=== PATIENT | male | born 1935 | race Caucasian/White ===

== ENCOUNTER 2016-10-06 08:34 | Emergency (ER) | payer OTHER ==
[~2016-10-06] VITALS: Ht 177.8 cm; Wt 89.6 kg
[~2016-10-06 08:34] MED LIST: ASCO500T87 PO; ASPI325T45 PO; ATOR-26 PO; CHOL1TAB76 PO; DIPH-437 PO; GLC5 PO; MAGN400T5 PO; METO50TA7 PO; NITR0.4S UT; SITA50TA PO; VARD20TA PO
[2016-10-06 08:49] VITALS: TEMP 36.4; Ht 177.8 cm; Wt 89.6 kg
--- NOTE | 2016-10-06 08:53 | EMERGENCY ROOM VISIT NOTE ---
History Report prepared by Berny: Mirian Bates Under the Supervision of: Dr. Sadi Hughes D.O. First contact with patient: 08:36 Chief Complaint: IRREGULAR HEARTBEAT Stated Complaint: FLUTTER IN HEART SENT BY DOCTOR History of Present Illness The patient is a 81 year old male who presents to the Emergency Room with complaints of constant heart fluttering beginning 4 hours ago. The patient states that this morning he had some chest pain and shortness of breath that was worsened with exertion. He notes that he was told to come in to the ED by his doctor that was concerned that he was in A-fib. He denies any swelling of the legs. He reports that he has no history of heart attack but had a bypass 14 years ago. He notes that he has a history of A-fib and has been shocked out of the rhythm. He notes that he is on Metoprolol 2 times a day and has diabetes but is not on insulin. Source of History: patient Onset: 4 hours ago Position: chest Quality: other (fluttering) Timing: constant Modifying Factors (Worsening): exertion Associated Symptoms: + SOB, + chest pain Note: He denies any swelling of the legs. Review of Systems See above for pertinent positives & negatives. A total of 10 systems reviewed and were otherwise negative. Past Medical & Surgical Medical Problems: (1) Diabetes (2) SVT (supraventricular tachycardia) (3) SVT (supraventricular tachycardia) Surgical Problems: (1) Hx of CABG Family History No pertinent family history stated. Social History Smoking Status: Never Smoker Alcohol Use: occasionally Marital Status: Housing Status: lives with significant other Occupation Status: retired Current/Historical Medications Scheduled Ascorbic Acid (Vitamin C Tr/Galina Hips), 2 TABS PO DAILY Atorvastatin (Lipitor), 80 MG PO DAILY Cholecalciferol (D 1999), 1 TAB PO DAILY Dutasteride (Avodart), 0.5 MG PO DAILY Glipizide (Glipizide), 10 MG PO BID Lisinopril (Zestril), 5 MG PO DAILY Metoprolol Succ (Toprol Xl) (Toprol-Xl), 50 MG PO BID Nitroglycerin (Nitrostat), 0.4 MG UT PRN Pantoprazole (Pantoprazole Sodium), 40 MG PO DAILY Allergies Coded Allergies: No Known Allergies (Unverified , 10/06/16) Physical Exam Vital Signs Date Time Temp Pulse Resp B/P Pulse Ox O2 Delivery O2 Flow Rate FiO2 10/06/16 10:32 71 18 131/77 97 Nasal Cannula 2.0 10/06/16 09:43 75 16 130/63 97 Nasal Cannula 2.0 10/06/16 09:24 75 18 119/91 99 Nasal Cannula 2.0 10/06/16 09:15 74 10/06/16 09:12 119 16 96/64 99 Nasal Cannula 2.0 10/06/16 09:09 124 104/64 10/06/16 09:03 99 Nasal Cannula 2.0 10/06/16 08:51 98 Room Air 10/06/16 08:49 36.4 130 20 105/75 98 Room Air 10/06/16 08:45 129 Physical Exam GENERAL: Patient is well appearing and in no acute distress. HEENT: No acute trauma, normocephalic atraumatic, mucous membranes moist, no nasal congestion, no scleral icterus. NECK: No stridor, no adenopathy, no meningismus, trachea is midline. LUNGS: No dyspnea. Clear to auscultation and equal bilaterally. No wheeze, no rhonchi. HEART: Tachycardic rate and irregularly irregular rhythm. No murmurs, rubs, gallops appreciated. ABDOMEN: Soft, nontender, bowel sounds positive, no masses appreciated, no peritonitis. BACK: No midline tenderness, no CVA tenderness EXTREMITIES: Normal motion all extremities, no cyanosis, no edema. NEUROLOGIC: Alert and oriented, no acute motor or sensory deficits, no focal weakness, cranial nerves grossly intact. SKIN: No rash, no jaundice, no diaphoresis. Medical Decision & Procedures ER Provider Diagnostic Interpretation: X ray results and stated below per my interpretation and radiologist interpretation. SINGLE VIEW CHEST FINDINGS: An AP, portable, upright chest radiograph is compared to study dated 04/17/2014. The examination is degraded by portable technique and patient rotation. The patient is status post midline sternotomy. The heart is enlarged and there is atherosclerotic calcification of the thoracic aorta. The pulmonary vasculature is noncongested. There is minimal left basilar atelectasis. The lungs and pleural spaces are otherwise clear. No pneumothorax is seen. The skeletal structures are osteopenic. The bony thorax is grossly intact. IMPRESSION: Mild cardiac enlargement with no acute cardiopulmonary abnormality. Electronically signed by: Luis Dominguez M.D. 10/06/2016 9:26 AM Dictated Date/Time: 10/06/2016 9:25 AM Laboratory Results 10/06/16 08:45 Red Blood Count 4.35, Mean Corpuscular Volume 93.6, Mean Corpuscular Hemoglobin 33.1, Mean Corpuscular Hemoglobin Concent 35.4, Mean Platelet Volume 9.8, Neutrophils (%) (Auto) 68.0, Lymphocytes (%) (Auto) 18.1, Monocytes (%) (Auto) 11.2, Eosinophils (%) (Auto) 2.1, Basophils (%) (Auto) 0.5, Neutrophils # (Auto ) 5.31, Lymphocytes # (Auto) 1.41, Monocytes # (Auto) 0.87, Eosinophils # (Auto ) 0.16, Basophils # (Auto) 0.04 10/06/16 08:45 Test 10/06/16 08:45 10/06/16 09:50 White Blood Count 7.80 K/uL (4.8-10.8) Red Blood Count 4.35 M/uL (4.7-6.1) Hemoglobin 14.4 g/dL (14.0-18.0) Hematocrit 40.7 % (42-52) Mean Corpuscular Volume 93.6 fL (80-100) Mean Corpuscular Hemoglobin 33.1 pg (25-34) Mean Corpuscular Hemoglobin Concent 35.4 g/dl (32-36) Platelet Count 212 K/uL (130-400) Mean Platelet Volume 9.8 fL (7.4-10.4) Neutrophils (%) (Auto) 68.0 % Lymphocytes (%) (Auto) 18.1 % Monocytes (%) (Auto) 11.2 % Eosinophils (%) (Auto) 2.1 % Basophils (%) (Auto) 0.5 % Neutrophils # (Auto) 5.31 K/uL (1.4-6.5) Lymphocytes # (Auto) 1.41 K/uL (1.2-3.4) Monocytes # (Auto) 0.87 K/uL (0.11-0.59) Eosinophils # (Auto) 0.16 K/uL (0-0.5) Basophils # (Auto) 0.04 K/uL (0-0.2) RDW Standard Deviation 42.8 fL (36.4-46.3) RDW Coefficient of Variation 12.6 % (11.5-14.5) Immature Granulocyte % (Auto) 0.1 % Immature Granulocyte # (Auto) 0.01 K/uL (0.00-0.02) Prothrombin Time 11.5 SECONDS (9.0-12.0) Prothromb Time International Ratio 1.1 (0.9-1.1) Activated Partial Thromboplast Time 26.8 SECONDS (21.0-31.0) Partial Thromboplastin Ratio 1.0 Anion Gap 12.0 mmol/L (3-11) Est Creatinine Clear Calc Drug Dose 27.7 ml/min Estimated GFR () 28.5 Estimated GFR (Non- 24.6 BUN/Creatinine Ratio 13.1 (10-20) Calcium Level 9.1 mg/dl (8.5-10.1) Magnesium Level 1.7 mg/dl (1.8-2.4) Total Bilirubin 0.5 mg/dl (0.2-1) Direct Bilirubin 0.1 mg/dl (0-0.2) Aspartate Amino Transf (AST/SGOT) 23 U/L (15-37) Alanine Aminotransferase (ALT/SGPT) 25 U/L (12-78) Alkaline Phosphatase 108 U/L (45-117) Total Creatine Kinase 150 U/L (39-308) Creatine Kinase MB 2.5 ng/ml (0.5-3.6) Creatine Kinase MB Ratio 1.7 (0-3.0) Troponin I < 0.015 ng/ml (0-0.045) Total Protein 7.3 gm/dl (6.4-8.2) Albumin 3.4 gm/dl (3.4-5.0) Thyroid Stimulating Hormone (TSH) 3.060 uIu/ml (0.300-4.500) Urine Color YELLOW Urine Appearance CLEAR (CLEAR) Urine pH 7.0 (4.5-7.5) Urine Specific [place] 1.009 (1.000-1.030) Urine Protein 1+ (NEG) Urine Glucose (UA) NEG (NEG) Urine Ketones NEG (NEG) Urine Occult Blood NEG (NEG) Urine Nitrite NEG (NEG) Urine Bilirubin NEG (NEG) Urine Urobilinogen NEG (NEG) Urine Leukocyte Esterase TRACE (NEG) Urine WBC (Auto) 5-10 /hpf (0-5) Urine RBC (Auto) 0-4 /hpf (0-4) Urine Hyaline Casts (Auto) 1-5 /lpf (0-5) Urine Epithelial Cells (Auto) 10-20 /lpf (0-5) Urine Bacteria (Auto) NEG (NEG) Urine Renal Epithelial Cells /lpf (0-5) Laboratory results as reviewed by me. Medications Administered Medications (Trade) Dose Ordered Sig/García Route Start Time Stop Time Status Last Admin Dose Admin Sodium Chloride (Nss 1000ml) 1,000 ml @ 999 mls/hr Q1H1M STAT IV 10/06/16 08:54 10/06/16 09:54 DC 10/06/16 09:06 999 MLS/HR Metoprolol Tartrate (Lopressor Iv) 5 mg NOW STAT IV 10/06/16 08:55 10/06/16 08:56 DC 10/06/16 09:09 5 MG Magnesium Sulfate (Magnesium Sulfate) 1 gm NOW STAT IV 10/06/16 09:53 10/06/16 10:22 DC 10/06/16 10:04 1 GM ECG Indication: chest pain Rate (beats per minute): 128 Rhythm: atrial fibrillation Findings: other (normal axis, normal intervals, rapid ventricular response) Comparison ECG Date: 04/17/14 Change: A-fib is new and subendocardial pathway is no longer present. EKG #2: Sinus rhythm , 21, normal axis, normal intervals, 1st deg AV block, A- fib now resolved ED Course 0843: The patient was evaluated in room B2. A complete history and physical exam was performed. 0854: Sodium Chloride 1000 ml @ 999 mls/hr IV, Lopressor IV 5mg IV. 0953: Magnesium Sulfate 1gm IV. 0959: Magnesium Sulfate 1gm IV. 1003: I paged Dr. Gupta. 1010: I spoke to Dr. Gupta. He is comfortable without anticoagulation. The patient is stable for discharge and will follow up with Dr. Gupta in 2 weeks. 1016: Reevaluated the patient. Discussed results and discharge instructions: He verbalized understanding and agreement. The patient is ready for discharge. Medical Decision Differential diagnosis: Etiologies such as cardiac ischemia, aortic dissection, pulmonary embolism, pneumonia, pneumothorax, musculoskeletal, infections, pericarditis, myocarditis , esophageal rupture, gastrointestinal, as well as others were entertained. Patient is an 81-year-old male with significant past medical history for coronary artery disease, paroxysmal A. fib, not on anticoagulation by choice, who presented after converting into atrial fibrillation with RVR at approximately 5 AM this morning he states he had mild chest pain shortness of breath whenever he enters atrial fibrillation. He is given 5 mg metoprolol IV and spontaneously converted in normal sinus rhythm. I discussed the case with Dr. Gupta him tech Areli. He is familiar with him not being on anticoagulation he is comfortable with that. He'll follow up with Dr. Gupta in 1-2 weeks. He is mildly hypomagnesemic he was given 1 g IV magnesium sulfate in the emergency department. We discharged home in improved stable condition. Patient is an 81-year-old male without significant past medical history for hypertension coronary artery disease status post CABG 14 years ago as well as paroxysmal A. fib. I discussed the case with Dr. Gupta his primary him tech who reports that he is well aware of the patient and he is not on anticoagulation by choice and the patient routinely knows when he converts into atrial fibrillation. He has an events of atrial fibrillation with RVR approximately once year. Today he reports that he was brushing more than normal he went into atrial fibrillation approximately 5 AM. He had palpitations and chest pain while in atrial fibrillation, he was treated with 5 mg of IV metoprolol which spontaneously converted him into a normal sinus rhythm. After conversion to normal sinus rhythm the patient felt completely back to normal chest pain-free. I discussed the case with Dr. Gupta who will see him in 1-2 weeks. His troponin is negative 1, repeat EKG was obtained. It is found to be mildly hypomagnesemic he was given 1 g magnesium sulfate while in the ED. Consults Time Called: 1003 Consulting Physician: Dr. Gupta Returned Call: [phone] Gupta. He is comfortable without anticoagulation. The patient is stable for discharge and will follow up with Dr. Gupta in 2 weeks. Impression Primary Impression: Atrial fibrillation with rapid ventricular response Additional Impressions: Chronic renal insufficiency Hx of coronary artery disease Hypomagnesemia Scribe Attestation The scribe's documentation has been prepared under my direction and personally reviewed by me in its entirety. I confirm that the note above accurately reflects all work, treatment, procedures, and medical decision making performed by me. Departure Information Dispostion Home / Self-Care Referrals Eulogio Lugo D.O. (PCP) Forms HOME CARE DOCUMENTATION FORM, IMPORTANT VISIT INFORMATION Patient Instructions AFL/Afib, [facility] Additional Instructions Follow-up with Dr. Gupta, call his office tomorrow for follow-up appointment in 1-2 weeks. Return for chest pain, palpitations, shortness of breath, passing out, or any other concerns. Problem Qualifiers
[2016-10-06] MEDS ORDERED: SODIUM CHLORIDE 0.9% 1000ML 1,000 ML IV STA (08:54)
[2016-10-06 09:03] VITALS: O2SAT 99
[2016-10-06] MEDS: METOPROLOL TARTRATE 1 MG/ML VIAL IV STA ×2 (09:07→09:09)
[2016-10-06 09:08] LABS: BASO % 0.5 %; BASO ABS # 0.04 K/uL (0-0.2); COMPLETE YES; EOS % 2.1 %; HEMATOCRIT 40.7 % (42-52); IG% 0.1 %; LYMPH % 18.1 %; LYMPH ABS # 1.41 K/uL (1.2-3.4); MEAN CELL VOLUME 93.6 fL (80-100); MEAN CORPUSCULAR HEMOGLOBIN 33.1 pg (25-34); MEAN CORPUSCULAR HGB CONC 35.4 g/dl (32-36); MEAN PLATELET VOLUME 9.8 fL (7.4-10.4); MONO % 11.2 %; PLATELET COUNT 212 K/uL (130-400); RED BLOOD COUNT 4.35 M/uL (4.7-6.1)
[2016-10-06 09:18] LABS: INR 1.1 (0.9-1.1); PROTHROMBIN TIME (PATIENT) 11.5 SECONDS (9.0-12.0)
[2016-10-06 09:24] LABS: ALT/SGPT 25 U/L (12-78); BLOOD UREA NITROGEN 31 mg/dl (7-18); BUN/CREATININE RATIO 13.1 (10-20); CALCIUM 9.1 mg/dl (8.5-10.1); CARBON DIOXIDE 23 mmol/L (21-32); CHLORIDE 103 mmol/L (98-107); GLUCOSE 178 mg/dl (70-99); MAGNESIUM 1.7 mg/dl (1.8-2.4); POTASSIUM 4.7 mmol/L (3.5-5.1); SODIUM 138 mmol/L (136-145)
--- NOTE | 2016-10-06 09:27 | DIAGNOSTIC IMAGING REPORT ---
SINGLE VIEW CHEST CLINICAL HISTORY: Generalized weakness. FINDINGS: An AP, portable, upright chest radiograph is compared to study dated 04/17/2014. The examination is degraded by portable technique and patient rotation. The patient is status post midline sternotomy. The heart is enlarged and there is atherosclerotic calcification of the thoracic aorta. The pulmonary vasculature is noncongested. There is minimal left basilar atelectasis. The lungs and pleural spaces are otherwise clear. No pneumothorax is seen. The skeletal structures are osteopenic. The bony thorax is grossly intact. IMPRESSION: Mild cardiac enlargement with no acute cardiopulmonary abnormality. Electronically signed by: Luis Dominguez M.D. 10/06/2016 9:26 AM Dictated Date/Time: 10/06/2016 9:25 AM
[2016-10-06 09:34] LABS: ALKALINE PHOSPHATASE 108 U/L (45-117); AST/SGOT 23 U/L (15-37); CKMB/CK RATIO 1.7 (0-3.0)
[2016-10-06] MEDS ORDERED: GLIP10TA10 PO (09:41)
[2016-10-06] MEDS ORDERED: LISI-729 PO (09:41)
[2016-10-06] MEDS ORDERED: DUTA0.5C PO (09:41)
[2016-10-06] MEDS ORDERED: PRT/40 PO (09:41)
[2016-10-06] MEDS ORDERED: MAGNESIUM SULFATE 1GM / D5W 1 GM BAG IV STA (09:53)
[2016-10-06] MEDS ORDERED: MAGNESIUM SULFATE 1GM / D5W 1 GM BAG ONE (09:59)
[2016-10-06 10:12] LABS: MANUAL MICROSCOPIC REQUIRED? NO; REVIEW REQ? YES; URINE APPEARANCE CLEAR (CLEAR); URINE BILIRUBIN NEG (NEG); URINE COLOR YELLOW; URINE NITRITE NEG (NEG); URINE SPECIFIC GRAVITY 1.009 (1.000-1.030); UROBILINOGEN NEG (NEG)
[2016-10-06] MEDS ORDERED: ASPI81TA28 PO (11:02)
[2016-10-06 11:29] VITALS: BP 135/76; PULSE 75; O2SAT 95
== END 2016-10-06 11:30 | disposition home or self-care (01) ==
LOC: C.EDB 08:35
DX: I48.91 Unspecified atrial fibrillation (principal); N18.9 Chronic kidney disease, unspecified; I25.10 Atherosclerotic heart disease of native coronary artery without angina pectoris; E83.42 Hypomagnesemia; E11.9 Type 2 diabetes mellitus without complications; Z79.899 Other long term (current) drug therapy

== ENCOUNTER 2019-06-16 06:43 | Inpatient (IN) ==
[2019-06-16 07:37] LABS: Basophils # (auto) 0.03 K/uL (0-0.2); Basophils % (auto) 0.6 %; Eosinophils # (auto) 0.19 K/uL (0-0.5); Eosinophils % (auto) 3.6 %; Hematocrit (blood only) 37.3 % (42-52); Hemoglobin 12.7 g/dL (14.0-18.0); Lymphocytes # (auto) 0.97 K/uL (1.2-3.4); Lymphocytes % (auto) 18.2 %; Mean Corpuscular Volume 96.9 fL (80-100); Mean Platelet Volume 9.6 fL (7.4-10.4); Monocytes # (auto) 0.62 K/uL (0.11-0.59); Monocytes % (auto) 11.7 %; Neutrophils # (auto) 3.51 K/uL (1.4-6.5); Neutrophils % (auto) 65.9 %; Platelet Count 145 K/uL (130-400); RDW Coefficient of Variation 12.7 % (11.5-14.5); RDW Standard Deviation 44.4 fL (36.4-46.3); Red Blood Count 3.85 M/uL (4.7-6.1); White Blood Count 5.32 K/uL (4.8-10.8)
[2019-06-16 07:47] LABS: INR 1.1 (0.9-1.1); Partial Thromboplastin Ratio 0.9; Partial Thromboplastin Time 25.6 Seconds (21.0-31.0); Prothrombin Time 11.2 Seconds (9.0-12.0)
[2019-06-16 07:54] LABS: Alanine Aminotransferase 19 U/L (12-78); Albumin Level 3.3 gm/dl (3.4-5.0); Aspartate Aminotransferase 20 U/L (15-37); BUN Creatinine Ratio 18.8 (10-20); Blood Urea Nitrogen 43 mg/dl (7-18); Carbon Dioxide 22 mmol/L (21-32); Chloride 110 mmol/L (98-107); Creatinine Clr Calc Pharmacy 27.7 ml/min; Est GFR (Non-African American) 25.9; Glucose 96 mg/dl (70-99); Magnesium 1.8 mg/dl (1.8-2.4); Potassium 4.5 mmol/L (3.5-5.1); Sodium 141 mmol/L (136-145)
--- NOTE | 2019-06-16 07:55 | CT Scan Report ---
CT head/brain wo con CLINICAL HISTORY: 84 years-old Male presenting with Stroke evaluation . TECHNIQUE: Multidetector CT imaging of the head was performed without the use of intravenous contrast . IV contrast: None. One or more dose lowering techniques were used consistent with the principles of ALARA (as low as reasonably achievable), including automatic exposure control, mA or kV adjustment t o individual patient size, and/or use of iterative reconstruction. COMPARISON: None. CT DOSE (mGy.cm): The estimated cumulative dose is 537.48 mGy.cm. FINDINGS: Table Cut Off Saw Operator topogram: Unremarkable. Ventricles and sulci normal in size. No hemorrhage. Periventricular and subcortical white matter hypo attenuation, nonspecific but likely indicative of chronic small vessel ischemic change. No acute terr itorial infarct. No mass effect or midline shift. No extra-axial fluid collection. Paranasal sinuses and mastoid air cells clear. Calvarium intact. Intracranial atherosclerosis noted. IMPRESSION: 1. Chronic small vessel ischemic change. No acute intracranial abnormality. Electronically signed by: Ernst Langley M.D. 06/16/2019 7:53 AM
[2019-06-16 07:59] LABS: Alkaline Phosphatase 70 U/L (45-117); Bilirubin,Total 0.5 mg/dl (0.2-1); Globulin 3.3 gm/dl (2.5-4.0); Total Protein 6.6 gm/dl (6.4-8.2); Troponin I < 0.015 ng/ml (0-0.045)
--- NOTE | 2019-06-16 08:00 | XRay Report ---
XR pelvis 1-2V routine CLINICAL HISTORY: L leg weakness COMPARISON: None FINDINGS: Sacroiliac joints and symphysis pubis are intact. There is no fracture or suspicious lesio n within the pelvis or hips. There is moderate bilateral hip osteophytosis with joint space narrowing and osteophytosis. IMPRESSION: 1. No acute fracture within the pelvis or hips. 2. Moderate bilateral hip osteoarthritis. Electronically signed by: Marc Leroy M.D. 06/16/2019 7:59 AM
--- NOTE | 2019-06-16 08:12 | XRay Report ---
XR chest 1V portable HISTORY: 84 years-old Male stroke acute strokelike symptoms COMPARISON: Chest radiograph 05/20/2018 TECHNIQUE: Portable AP view of the chest FINDINGS: Cardiac silhouette is mildly enlarged, unchanged. Prior median sternotomy with findings suggestive of CABG. Mild blunting of the costophrenic angles is unchanged. No pneumothorax, large pleural effusion or overt pulmonary edema. Mild linear subsegmental bibasilar opacities. Degenerative changes of the shoulders and spine. IMPRESSION: 1. Cardiomegaly without overt pulmonary edema. 2. Minimal bibasilar opacities suggest atelectasis. The above report was generated using voice recognition software. It may contain grammatical, syntax o r spelling errors. Electronically signed by: Markus Serrano M.D. 06/16/2019 8:11 AM
[2019-06-16] MEDS ORDERED: ASPIRIN CHEW 324 MG PO STA (09:24)
--- NOTE | 2019-06-16 10:19 | History & Physical Report ---
Date of Service June 16, 2019 Assessment & Plan (1) Stroke-like symptoms: Mr. Mata is an 84-year-old male who has significant past medical history of CAD with history of CABG x3 in 2003, HTN, HLD, T2DM, CKD stage IV, PAF not on oral anticoagulation, history of SVT, BPH who presents to [facility] ED secondary to left lower extremity weakness and numbness starting at 4 AM. Sx still present but improved, he was not a TPA candidate per ED provider, stroke alert not initiated He has remained significantly hypertensive during ED evaluation which raises even more concern for TIA/CVA CT head negative of hemorrhage, but + chronic small vessel disease CBC/CMP relatively unremarkable except for H&H 12.7 and 37.3, known CKD stage III with creatinine of 2.26 Admit to PCU Consult neurology Obtain MRI without contrast Echocardiogram ordered Carotid Doppler ordered, patient unable to have contrast given renal disease Fasting lipid panel and A1c in a.m. PT/OT/ST Monitor on telemetry for PAF, consider Zio patch as outpatient Allow for permissive hypertension 24-hour (2) CAD (coronary artery disease): hx of CABG in 2003 no chest pain or SOB on ASA, statin, metoprolol and lisinopril as outpt (3) PAF (paroxysmal atrial fibrillation): On metoprolol for rate control Currently bradycardic with heart rate of 52 Monitor, could consider decreasing metoprolol to 25 mg twice daily if continues He is not on oral anticoagulation - pt states never has been on in the past pt notes symptomatic with afib and palpitations in past [id number] score 7 would recommend ZIO patch as outpt (4) HTN (hypertension): Blood pressure elevated on admission 181/80, Per [facility] records controlled as outpatient SBP 130-140s He did take lisinopril 5 mg and metoprolol 50 mg prior to arrival hold further antihypertensive agents for now and allow for permissive hypertension during stroke work-up continue metoprolol if heart rate allows for rate control given PAF (5) HLD (hyperlipidemia): Continue high intensity statin therapy (6) CKD (chronic kidney disease) stage 4, GFR 15-29 ml/min: Baseline creatinine 2.2 BUN/creatinine stable at 43 and 2.26 Monitor renal function and avoid nephrotoxic agents (7) T2DM (type 2 diabetes mellitus): Well-controlled as outpatient, last A1c 01/2019 6.5 Hold outpatient glipizide NovoLog sliding scale per protocol Repeat A1c in a.m. (8) BPH (benign prostatic hyperplasia): On dutasteride as outpatient (9) DVT prophylaxis: SCD/TEDS for now monitor daily need for chemical prophylaxis with heparin if to stay greater than 24 hours Disposition: Admit to PCU Follow-up: PCP Dr. Lugo upon discharge Patient was seen and examined in collaboration with Dr. Allan, please see addendum History of Present Illness Chief Complaint: Left lower extremity weakness and numbness starting at approximately 4 AM. Primary Care Provider: Eulogio Lugo DO Mr. Mata is an 84-year-old male who has significant past medical history of CAD with history of CABG x3 in 2002, HTN, HLD, T2DM, CKD stage IV, PAF not on oral anticoagulation, history of SVT, BPH who presents to [facility] ED secondary to left lower extremity weakness and numbness starting at 4 AM. His Radha is at bedside. At approximately 4 AM patient woke up to use the bathroom. When he tried to get off the toilet he noticed he had left leg numbness and weakness, and ended up sliding off the toilet onto the floor. There was no known injury and he did not hit his head or pass out. He called for his for assistance, but she was unable to help. He scooted himself from the bathroom to the bed and was able to pull himself up and lie back down for approximately another hour. When he woke up again around 5 AM or 5:30 AM he got out of bed again and noticed he had continued left lower extremity numbness from the knee down, but it was improved from first thing this morning. Because symptoms were still present he opted to seek medical attention at ED. He denies any recent illness, fever, chills, sweats, lightheadedness, syncope, change in vision, change in hearing, diplopia, chest pain, palpitations, cough, hemoptysis, nausea, vomiting, diarrhea, change in his bowel or urinary habits. He otherwise has a good appetite at baseline. He did take his morning medications including ASA 81 mg, lisinopril 5 mg, metoprolol 50 mg. He denies any difficulty swallowing. Denies any facial droop or upper extremity weakness. He has a baseline speech impediment and his feels it was at baseline throughout the entire event. He also has known torn left Achilles which causes him to walk with a limp and use a brace. He currently does not feel he has any change in his gait from baseline. Allergies Allergy/AdvReac Type Severity Reaction Status Date / Time No Known Allergies Allergy Unverified 06/16/19 07:42 Home Medications Home Medications Medication Instructions Recorded Confirmed Type Vitamin C-Galina Hips Er 1000mg 2,000 mg PO QAM 06/16/19 06/16/19 History aspirin 81 mg PO QAM 06/16/19 06/16/19 History atorvastatin 80 mg PO QAM 06/16/19 06/16/19 History cholecalciferol (vitamin D3) 3,000 unit PO QAM 06/16/19 06/16/19 History [Vitamin D3] dutasteride 0.5 mg PO HS 06/16/19 06/16/19 History glipizide 10 mg PO BID 06/16/19 06/16/19 History lisinopril 5 mg PO QAM 06/16/19 06/16/19 History magnesium oxide 400 mg PO QAM 06/16/19 06/16/19 History metoprolol succinate 50 mg PO BID 06/16/19 06/16/19 History nitroglycerin 0.4 mg SUBLINGUAL UD 06/16/19 06/16/19 History pantoprazole 40 mg PO HS 06/16/19 06/16/19 History Past Med/Surg History Medical History BPH (benign prostatic hyperplasia) CAD (coronary artery disease) CKD (chronic kidney disease) stage 4, GFR 15-29 ml/min History of supraventricular tachycardia HLD (hyperlipidemia) HTN (hypertension) Hyperparathyroidism PAF (paroxysmal atrial fibrillation) T2DM (type 2 diabetes mellitus) Surgical History (Updated 06/16/19 @ 10:10 by Marcia Watson PA-C) History of cataract extraction History of prostate surgery Hx of CABG (Resolved) hx of cabg x 3 2002 Family History Father , 72 Cancer Coronary heart disease Social History (Updated 06/16/19 @ 10:11 by Marcia Watson PA-C) Preferred Language: Turkmen Communication Ability: Effective Control Technician Required: No Beliefs That Will Affect Care: None marital status: Current Living Situation: Spouse current occupational status: employed Feels Safe at Home: Yes Safety Concerns: Feels Safe At This Time Smoking Status: Never smoker Smoking End Date: 45+ years ago. ; Hx Alcohol Use: Yes Alcohol type: beer Alcohol type Comment: wednesday will have 1-2 beverages Alcohol Intake Frequency: Weekly Hx Substance Use: No Review of Systems Review of Systems: All systems reviewed & are unremarkable except as noted in HPI & below Physical Exam Physical Exam: Constitutional: WD/WN, vitals as above, NAD, sitting up in bed, pleasant, conversing easily, speech impediment and stutter Head: Normocephalic, Atraumatic Eyes: PERRL, conjunctivae normal, anicteric sclerae ENMT: external ear and nose normal, oropharynx normal Neck: trachea midline, no thyromegaly normal visual inspection Respiratory: normal respiratory effort, lungs clear to auscultation, no wheeze, rales, rhonchi. Normal insp/exp effort, no accessory muscle use Cardiovascular: Bradycardic rate but regular rhythm, no murmur, no edema Vessels: no JVD or carotid bruit Chest: normal inspection of chest Abdomen: normal bowel sounds, soft, nontender, no hepatosplenomegaly Musculoskeletal: no cyanosis or clubbing, extremities motor strength 5/5, except left lower extremity distally 4/5, mild sensory deficit left lower extremity distally Skin: no rashes, warm and dry normal turgor Neurologic: PERRL, EOMI, accommodation nl, no face palsy, speech impediment and stutter. CN's II-XI intact bilaterally and moves all extremities Psychiatric: A+Ox3, euthymic affect Lymphatic: no cervical or axillary lymphadenopathy : deferred Results & Data Vital Signs (Past 12 Hours) Vital Signs Temp Pulse Resp BP Pulse Ox 06/16/19 09:01 52 L 17 06/16/19 09:00 52 L 16 181/80 H 06/16/19 08:55 63 21 171/83 H 06/16/19 08:30 62 17 06/16/19 08:01 53 L 20 96 06/16/19 08:00 53 L 19 166/75 H 97 06/16/19 07:49 57 L 24 162/78 H 99 06/16/19 07:30 53 L 16 06/16/19 07:24 53 L 17 06/16/19 07:00 98 06/16/19 06:45 36.8 C 59 L 20 183/91 H 98 Laboratory Results Short CBC 06/16/19 06/16/19 Range/Units 07:26 07:26 WBC 5.32 (4.8-10.8) K/uL Hgb 12.7 L (14.0-18.0) g/dL Hct 37.3 L (42-52) % Plt Count 145 (130-400) K/uL Creatinine 2.26 H (0.6-1.4) mg/dl BMP 06/16/19 07:26 Sodium 141 Potassium 4.5 Chloride 110 H Carbon Dioxide 22 BUN 43 H Creatinine 2.26 H Glucose 96 Calcium 9.0 Cardiac Enzymes 06/16/19 Range/Units 07:26 Troponin I < 0.015 (0-0.045) ng/ml Liver Function 06/16/19 Range/Units 07:26 Total Bilirubin 0.5 (0.2-1) mg/dl AST 20 (15-37) U/L ALT 19 (12-78) U/L Alkaline Phosphatase 70 (45-117) U/L Albumin 3.3 L (3.4-5.0) gm/dl Diagnostic Findings CXR: IMPRESSION: 1. Cardiomegaly without overt pulmonary edema. 2. Minimal bibasilar opacities suggest atelectasis. Head CT: IMPRESSION: 1. Chronic small vessel ischemic change. No acute intracranial abnormality. Pelvis xray: IMPRESSION: 1. No acute fracture within the pelvis or hips. 2. Moderate bilateral hip osteoarthritis. ECG Rate (beats per minute): 51 Rhythm: sinus bradycardia Findings: + 1st degree AV block Code Status & VTE Plan Code Status Full Code VTE Prophylaxis Plan VTE Prophylaxis will be ordered: Yes Supervising Physician Co-Signing Physician Notes I saw this patient with the physician hospital aides and assistants teacher, I participated in the history, physical, review of systems, and physical exam. I reviewed the medications with the patient and the physician hospital aides and assistants teacher and helped reconcile the medications. I helped take a detailed family and social history as well. I formulated the assessment and plan personally with the physician hospital aides and assistants teacher and went over it with the patient. ROS-No Headache, No Visual Changes, No Nausea, No Vomiting, No Fever, No Chills, No Neck Pain or Stiffness, No Chest Pain, No Palpitations, No SOB, No FERRERA, No Cough, No Sputum, No Wheezing, No Abdominal Pain, No Diarrhea, No Hematemesis, No Hemoptysis, No Unexpected Weight Loss, No Flank pain, No Melena, No Hematochezia, No Frequency, No Urgency, No Burning, No Hematuria, No Rashes, No Diaphoresis. Appetite is Normal, c/o LE weakness, Sliding off Toilet Physical Exam Gen-AAO x 3, NAD, Afebrile, Mild speech Impediment Head-NCAT, EOMI, PERRLA, Anicteric Sclera, No Posterior Pharyngeal Erythema Neck-Supple, No JVD, No Thyromegaly, No Masses, No LAD, No Bruits Lungs-Clear to Auscultation Bilaterally, No Rales, No Rhonchi, No Wheezing, No Crepitus Chest-No S4, +S1, +S2, No S3, No Murmurs, No Rubs, No Gallops, No Ectopy Abdomen-Soft, Bowel Sounds Present, Non Tender, Non Distended, No Hepatomegaly, No Splenomegaly, No Palpable Masses, No Rebound, No Rigidity, No Guarding Musculoskeletal-Full Range of Motion Bilaterally, No CVAT Extremities-No Cyanosis, No Clubbing, No Edema Nuero-Cranial Nerves II-XII grossly intact, Motor WNL, DTRs WNL, Strength WNL, Non Focal Psych-Normal Mood
--- NOTE | 2019-06-16 12:22 | Magnetic Resonance Report ---
MR brain wo con HISTORY: 84 years-old Male Neuro sx, L leg weakness r/o CVA acute left leg numbness with weakness COMPARISON: Head CT of same day TECHNIQUE: Multiplanar multisequence MRI of the brain was obtained without the use of IV contrast. FINDINGS: Facilities Specialist localizer images demonstrate no gross extracranial abnormality. There is no restricted diffusio n to suggest acute or subacute infarction. Artifact from dental amalgam hardware and dental implants limits the study. Midline structures including the corpus callosum, brainstem, optic chiasm, pituitar y and pineal glands appear unremarkable as seen on the sagittal T1 series. No cerebellar tonsillar he rniation. Degenerative changes are noted about the imaged cervical spine. There is no acute intracranial hemorrhage, midline shift, abnormal extra-axial collection, hydrocepha darrion or intracranial mass. Mild age-related involutional changes. Patchy T2/FLAIR hyperintensities are noted about the white matter with the largest foci noted within the periventricular distributions, r ight greater than left. A single focus is also within the superior right cerebellum measuring 8 mm. T he major flow voids appear patent. Mastoid air cells are clear. Mild mucosal thickening of the fronta l and ethmoid sinuses. Prior bilateral cataract appear. Skull and soft tissues are unremarkable. IMPRESSION: 1. No acute intracranial abnormality, specifically no acute or subacute infarction. 2. Age-related involutional changes with indeterminate patchy T2/FLAIR hyperintensities within the wh ite matter, predominantly within a periventricular distribution with subcentimeter focus of the super ior right cerebellum. In a patient of this age group, these findings likely represent chronic microva scular ischemic disease with underlying demyelinating process not excluded. Correlate with clinical h istory. The above report was generated using voice recognition software. It may contain grammatical, syntax o r spelling errors. Electronically signed by: Markus Serrano M.D. 06/16/2019 12:21 PM
--- NOTE | 2019-06-16 13:03 | Ultrasound Report ---
US carotid doppler BI CLINICAL HISTORY: 84 years-old Male with CVA work up. Acute stroke like symptoms COMPARISON: Brain MRI of same day TECHNIQUE: Multiple real time sonographic images of the carotid bifurcations were obtained assessing james scale, color Doppler and spectral wave form appearance FINDINGS: RIGHT CAROTID: The peak systolic velocity within the proximal right ICA [id number] cm/sec. The end diastolic velocity measured 35 cm/sec. The ICA to CCA ratio measured 2.4 which correlates with a st enosis of 0-50%. Extensive calcified plaque of the right carotid bulb and proximal right ICA. LEFT CAROTID: The peak systolic velocity within the proximal left ICA [id number] cm/sec. The end d iastolic velocity measured 17 cm/sec. The ICA to CCA ratio measured 0.96 which correlates with a sten osis of 0-50%. Extensive mostly calcified plaque of the left carotid bulb and proximal left ICA. There is normal antegrade vertebral flow bilaterally. Blood pressure on the right measures 164/75 and on the left measures 146/73. IMPRESSION: 1. Extensive calcified plaque of the bilateral carotid bulbs results in 50-69% stenosis on the right and less than 50% stenosis on the left. 2. Antegrade flow of the bilateral vertebral arteries. The above report was generated using voice recognition software. It may contain grammatical, syntax o r spelling errors. Electronically signed by: Markus Serrano M.D. 06/16/2019 1:01 PM
[2019-06-16] MEDS ORDERED: DEXTROSE 50% 50 ML SYRINGE IV PRN (13:20)
[2019-06-16] MEDS ORDERED: PHARMACIST DISCHARGE MED REC CONSULT PRN (13:20)
[2019-06-16] MEDS ORDERED: GLUCOSE 10 TABS/TUBE PO PRN (13:20)
[2019-06-16] MEDS ORDERED: POLYETHYLENE (MIRALAX) 17 GM PACK PO PRN (13:20)
[2019-06-16] MEDS ORDERED: GLUCAGON FOR INJ 1 MG VIAL SQ PRN (13:20)
[2019-06-16] MEDS ORDERED: CARBOHYDRATES FOR HYPOGLYCEMIA PO PRN (13:20)
[2019-06-16] MEDS ORDERED: GLUCOSE 40% GEL 15 GM TUBE PO PRN (13:20)
[2019-06-16] MEDS ORDERED: ONDANSETRON INJ 2 MG/ML 2 ML VIAL IV PRN (13:20)
[2019-06-16] MEDS ORDERED: ACETAMINOPHEN 325 MG TAB PO PRN (13:20)
--- NOTE | 2019-06-16 13:22 | Neurology Consultation ---
Date of Consultation June 16, 2019 Assessment & Plan (1) Stroke-like symptoms: 1. TTE- small shunt 60-65% EF 2. MRI - no acute findings 3. carotid doppler- extensive calcified plaques no significant stenosis 4. already on aspirin 81 mg would add plavix 75 mg daily for 21 days then stop a spirin and continue plavix for life 5. cardiology -for anticoag if needed will defer to them 6. PT/OT speech for discharge needs 7. medical management per primary team 8. optimize HTN, HLD, DM, LDL <70 will seen in neurology clinic in 4-6 weeks after discharge, Supervising Physician Co-Signing Physician Notes I have seen and discussed above patient with Dr Matt Villareal, neuro History of Present Illness Requesting Physician: Matthew Garcia DO Attending Physician: Matthew Allan DO History of Present Illness Anand is an 84 year old male with PMH CAD, CABG x 3 in 2002, Htn, HLD, DM2, CKD IV, pAfib not on anitcoag, SVT, BPH, who was brought to [facility] ED due to a LLE weakness, and numbness, which started at 4a. He woke to use the bathroom and tri ed to get off the toilet and notice the leg to be numb and weak and then slid to the floor. There was no black or passing out. He got back to his bed and laid there for about and hour. then he tried getting up again but had left LE numbness from the knee down but was improved from earlier but since it was still there he came to the ED. At baseline he has a speech impediment and a known lfet Achilles tendon tear which he uses a brace and walks with a limp. Currently he is sitting up in bed and still having the numbness in his left leg. He states it is still difficult to walk but if now feels more like a muscle strain. denies CP, SOB, abdominal pain, swallowing issues, N, V, vision changes, bowel or bladder issues. Allergies Allergy/AdvReac Type Severity Reaction Status Date / Time No Known Allergies Allergy Unverified 06/16/19 07:42 Home Medications Home Medications Medication Instructions Recorded Confirmed Type Vitamin C-Galina Hips Er 1000mg 2,000 mg PO QAM 06/16/19 06/16/19 History aspirin 81 mg PO QAM 06/16/19 06/16/19 History atorvastatin 80 mg PO QAM 06/16/19 06/16/19 History cholecalciferol (vitamin D3) 3,000 unit PO QAM 06/16/19 06/16/19 History [Vitamin D3] dutasteride 0.5 mg PO HS 06/16/19 06/16/19 History glipizide 10 mg PO BID 06/16/19 06/16/19 History lisinopril 5 mg PO QAM 06/16/19 06/16/19 History magnesium oxide 400 mg PO QAM 06/16/19 06/16/19 History metoprolol succinate 50 mg PO BID 06/16/19 06/16/19 History nitroglycerin 0.4 mg SUBLINGUAL UD 06/16/19 06/16/19 History pantoprazole 40 mg PO HS 06/16/19 06/16/19 History Patient History Medical History BPH (benign prostatic hyperplasia) CAD (coronary artery disease) CKD (chronic kidney disease) stage 4, GFR 15-29 ml/min History of supraventricular tachycardia HLD (hyperlipidemia) HTN (hypertension) Hyperparathyroidism PAF (paroxysmal atrial fibrillation) T2DM (type 2 diabetes mellitus) Surgical History History of cataract extraction History of prostate surgery Hx of CABG (Resolved) hx of cabg x 3 2002 Family History Father , 72 Cancer Coronary heart disease Social History Preferred Language: Nigerien Communication Ability: Effective Broke Handler Required: No Beliefs That Will Affect Care: None marital status: Current Living Situation: Spouse current occupational status: employed Feels Safe at Home: Yes Safety Concerns: Feels Safe At This Time Smoking Status: Never smoker Smoking End Date: 45+ years ago. ; Hx Alcohol Use: Yes Alcohol type: beer Alcohol type Comment: wednesday will have 1-2 beverages Alcohol Intake Frequency: Weekly Hx Substance Use: No Physical Exam Physical Exam: Physical Exam: Constitutional: appearance nourished, healthy and normal Ears, Nose, Mouth and Throat: mucous membranes moist, no injection and skin normal, eyes normal Cardiovascular: regular rhythm ,rate Respiratory: course breath sounds Musculoskeletal: no peripheral edema, left Achilles no tension with palpation Skin: no stigmata of neurocutaneous disease noted and normal and intact Eyes: extraocular muscles intact (EOMI) and pupils equal, round and reactive to light (PERRL) NEUROLOGIC EXAMINATION: Mental status: Alert and interactive Oriented to full date and location Oriented to person Speech stuttering speech chronic Cranial Nerves smile eye brow raise symmetric Reflexes: Deep tendon reflexes were symmetrical and graded 2/5. Sensory: loss of sensation to vibration and cool, light left leg from knee down Coordination: finger to nose slight dysmetric Gait/Stance: Posture sitting up in bed Motor: Negative for pronator drift of out stretched arms with eyes closed. Strength: hand assistant manager/embalmer biceps triceps bilaterally 5/5, hip flex plantar flex ext 5/5 bilaterally Results & Data Vital Signs (Past 12 Hours) Vital Signs Temp Pulse Resp BP Pulse Ox 06/16/19 09:01 52 L 17 06/16/19 09:00 52 L 16 181/80 H 06/16/19 08:55 63 21 171/83 H 06/16/19 08:30 62 17 06/16/19 08:01 53 L 20 96 06/16/19 08:00 53 L 19 166/75 H 97 06/16/19 07:49 57 L 24 162/78 H 99 06/16/19 07:30 53 L 16 06/16/19 07:24 53 L 17 06/16/19 07:00 98 06/16/19 06:45 36.8 C 59 L 20 183/91 H 98 Laboratory Results Abnormal lab results 06/16/19 06/16/19 06/16/19 Range/Units 07:26 07:26 13:45 RBC 3.85 L (4.7-6.1) M/uL Hgb 12.7 L (14.0-18.0) g/dL Hct 37.3 L (42-52) % Lymph # (Auto) 0.97 L (1.2-3.4) K/uL [place] # (Auto) 0.62 H (0.11-0.59) K/uL Chloride 110 H (98-107) mmol/L BUN 43 H (7-18) mg/dl Creatinine 2.26 H (0.6-1.4) mg/dl POC Glucose 100 H (70-99) Albumin 3.3 L (3.4-5.0) gm/dl Diagnostic Findings Carotid doppler- . Extensive calcified plaque of the bilateral carotid bulbs results in 50-69% stenosis on the right and less than 50% stenosis on the left. Antegrade flow of the bilateral vertebral arteries. MRI brain-No acute intracranial abnormality, specifically no acute or subacute infarction. Age-related involutional changes with indeterminate patchy T2/FLAIR hyperintensities within the white matter, predominantly within a periventricular distribution with subcentimeter focus of the superior right cerebellum. In a patient of this age group, these findings likely represent chronic microvascular ischemic disease with underlying demyelinating process not excluded. Correlate with clinical history. pelvis x ray-No acute fracture within the pelvis or hips. Moderate bilateral hip osteoarthritis. CXR-Chronic small vessel ischemic change. No acute intracranial abnormality. TTE 60-65% small shunt
--- NOTE | 2019-06-16 14:30 | Emergency Department Note ---
Entered by Luis E Salas acting as a scribe for Reynold Camarillo History of Present Illness General Chief complaint: Neuro Symptoms/Deficit Stated complaint: FALL-NUMBNESS IN LEFT LEG Time Seen by Provider: 06/16/19 07:03 Source: patient Mode of arrival: ambulatory Limitations: no limitations History of Present Illness Onset (ago): hour(s) 3 Location: lower extremity (left leg ) Pain Consistency: + intermittent Quality: + other (episode) Relieved By: + other (time) Associated symptoms: + denies other symptoms (loss of consciousness) and + other (numbness in left leg, weakness in left leg ) The patient is a 84 year old female who presents to the Emergency Room with complaints of an episode of a fall that happened this morning at 4 am, three hours prior to arrival. The patient notes that he went to bed at 7-8 pm, which is when he last felt normal. The patient notes that he went to go to the bathroom and sat on the toilet and went to get up and slid off the toilet seat. The patient states that his left leg was numb and weak, and that he was unable to get up on his own. The patient reports that he called for his and could not get off the floor on his own. He reports that he slid on his butt to his bed and pulled himself to his bed. The patient denies hitting his head or any syncope. He notes that the left leg numbness was intermittent and has gotten better since arrival. He reports that he was ambulatory. Home Medications Home Medications Medication Instructions Recorded Confirmed Type Vitamin C-Galina Hips Er 1000mg 2,000 mg PO QAM 06/16/19 06/16/19 History aspirin 81 mg PO QAM 06/16/19 06/16/19 History atorvastatin 80 mg PO QAM 06/16/19 06/16/19 History cholecalciferol (vitamin D3) 3,000 unit PO QAM 06/16/19 06/16/19 History [Vitamin D3] dutasteride 0.5 mg PO HS 06/16/19 06/16/19 History glipizide 10 mg PO BID 06/16/19 06/16/19 History lisinopril 5 mg PO QAM 06/16/19 06/16/19 History magnesium oxide 400 mg PO QAM 06/16/19 06/16/19 History metoprolol succinate 50 mg PO BID 06/16/19 06/16/19 History nitroglycerin 0.4 mg SUBLINGUAL UD 06/16/19 06/16/19 History pantoprazole 40 mg PO HS 06/16/19 06/16/19 History Allergies Allergy/AdvReac Type Severity Reaction Status Date / Time No Known Allergies Allergy Unverified 06/16/19 07:42 Past Med/Surg History Medical History BPH (benign prostatic hyperplasia) CAD (coronary artery disease) CKD (chronic kidney disease) stage 4, GFR 15-29 ml/min History of supraventricular tachycardia HLD (hyperlipidemia) HTN (hypertension) Hyperparathyroidism PAF (paroxysmal atrial fibrillation) T2DM (type 2 diabetes mellitus) Surgical History (Updated 06/16/19 @ 10:10 by Marcia Watson PA-C) History of cataract extraction History of prostate surgery Hx of CABG (Resolved) hx of cabg x 3 2002 Family History Father , 72 Cancer Coronary heart disease Social History (Updated 06/16/19 @ 10:11 by Marcia Watson PA-C) Preferred Language: Citizen Of [place] Communication Ability: Effective Systems Manager Required: No Beliefs That Will Affect Care: None marital status: Current Living Situation: Spouse current occupational status: employed Feels Safe at Home: Yes Safety Concerns: Feels Safe At This Time Smoking Status: Never smoker Smoking End Date: 45+ years ago. ; Hx Alcohol Use: Yes Alcohol type: beer Alcohol type Comment: wednesday will have 1-2 beverages Alcohol Intake Frequency: Weekly Hx Substance Use: No Review of Systems See HPI for pertinent positives & negatives. and A total of 10 systems reviewed and were otherwise negative Physical Exam Vital Signs Vital Signs - 24 hr 06/16/19 06:45 06/16/19 07:00 06/16/19 07:24 Temperature 36.8 C Temperature Source Oral Oral Pulse Rate 59 L 53 L Pulse Rate from SpO2 Sensor Pulse Rhythm Regular Pulse Strength Normal Respiratory Rate 20 17 Respiratory Effort / Characteristics Non-Labored Spontaneous Respiratory Depth Normal Respiratory Pattern Regular Blood Pressure 183/91 H Blood Pressure Mean 121 Blood Pressure Position Sitting Pulse Oximetry 98 98 Oxygen Delivery Method Room Air Room Air Sepsis Recent Fever Within 48 Hours No Sepsis Action Taken by Nursing No Action Required 06/16/19 07:30 06/16/19 07:49 06/16/19 08:00 Temperature Temperature Source Pulse Rate 53 L 57 L 53 L Pulse Rate from SpO2 Sensor 57 L 53 L Pulse Rhythm Pulse Strength Respiratory Rate 16 24 19 Respiratory Effort / Characteristics Respiratory Depth Respiratory Pattern Blood Pressure 162/78 H 166/75 H Blood Pressure Mean 103 119 Blood Pressure Position Pulse Oximetry 99 97 Oxygen Delivery Method Sepsis Recent Fever Within 48 Hours Sepsis Action Taken by Nursing 06/16/19 08:01 06/16/19 08:30 06/16/19 08:55 Temperature Temperature Source Pulse Rate 53 L 62 63 Pulse Rate from SpO2 Sensor 53 L Pulse Rhythm Pulse Strength Respiratory Rate 20 17 21 Respiratory Effort / Characteristics Respiratory Depth Respiratory Pattern Blood Pressure 171/83 H Blood Pressure Mean 114 Blood Pressure Position Pulse Oximetry 96 Oxygen Delivery Method Sepsis Recent Fever Within 48 Hours Sepsis Action Taken by Nursing 06/16/19 09:00 06/16/19 09:01 Temperature Temperature Source Pulse Rate 52 L 52 L Pulse Rate from SpO2 Sensor Pulse Rhythm Pulse Strength Respiratory Rate 16 17 Respiratory Effort / Characteristics Respiratory Depth Respiratory Pattern Blood Pressure 181/80 H Blood Pressure Mean 106 Blood Pressure Position Pulse Oximetry Oxygen Delivery Method Sepsis Recent Fever Within 48 Hours Sepsis Action Taken by Nursing Physical Exam GENERAL: He is oriented to person, place, and time. He appears well-developed and well-nourished. He does not appear distressed. HENT: Exam performed. - Head: Normocephalic and atraumatic. - Right Ear: External ear normal. No mastoid tenderness. - Left Ear: External ear normal. No mastoid tenderness. - Mouth/Throat: The oropharynx is clear and moist. No trismus in the jaw. No dental abscesses or uvula swelling. No oropharyngeal exudate or tonsillar abscesses. EYES: Conjunctivae and EOM are normal. Pupils are equal, round, and reactive to light. Right eye exhibits no discharge. Left eye exhibits no discharge. No scleral icterus. NECK: Normal range of motion. Neck supple. No JVD present. No spinous process tenderness present. No carotid bruit present. No rigidity. No tracheal deviation and normal range of motion present. No Brudzinski's sign and no Kernig's sign noted. CV: Normal rate, regular rhythm, normal heart sounds and intact distal pulses. There is no peripheral edema. Palpable radial pulses bue. PULM/CHEST: Effort normal and breath sounds normal. No respiratory distress. No stridor. He has no wheezes. He has no rales. - Chest Wall: He exhibits no tenderness. ABD: The abdomen is soft. Bowel sounds are normal. He has no distension. No mass is present. There is no tenderness. There is no rebound, no guarding, no Ziegler's sign and no tenderness at McBurney's point. Rovsig negative MUSC/SKEL: Normal range of motion. There is no peripheral edema, tenderness or deformity. LYMPH: No cervical adenopathy. ____ NEURO: Mild stuttering of speech, baseline per patient, mild sensory deficient of left lower extremity, mild cerebellar ataxia in left lower extremity, mildly shuffling gait which the patient and state are baseline due to Achilles. SKIN: Skin is warm and dry. He is not diaphoretic. ____ PSYCH: He has a normal mood and affect. His behavior is normal. Judgment and thought content normal. ____ Course Course 0704: The patient was evaluated in room B02. A complete history and physical exam was performed. Patient has a history of SVT, chest pain, diabetes, atrial flutter, CKD, patient will be evaluated for stroke vs TIA, patient is not a TPA candidate, woke up with last symptoms at 4 am, normal 12 hours ago, exact onset of symptoms are unknown, patient is a high risk for thromboembolic disease given his atrial flutter and is not on any anticoagulation 0900: Vitals stable, labs within normal limits, repeat assessment states has mild numb in left lower but has improved, potential TIA given history of irregular heartbeat and no anti coagulation, he will be given aspirin and admitted to [facility] hospitalist 0923: I discussed the patient's case with Dr. Allan, [facility] Hospitalist. The patient will be admitted for further treatement. Administered Medications Discontinued Medications Aspirin (Aspirin) 324 mg PO NOW STA Stop: 06/16/19 09:25 Last Admin: 06/16/19 10:15 Dose: 324 mg Documented by: [id number] Impression & Plan TIA (transient ischemic attack) Discharge Plan Visit Data Chief Complaint: Neuro Symptoms/Deficit Stated Complaint: FALL-NUMBNESS IN LEFT LEG ED Provider: Reynold Camarillo Discharge Problem: TIA (transient ischemic attack) Forms Stand Alone Forms: My [facility] Prescriptions Prescriptions: No Action atorvastatin 80 mg Tablet 80 mg PO QAM RF: 0 metoprolol succinate 50 mg Tablet Extended Release 24 Hr 50 mg PO BID RF: 0 glipizide 10 mg Tablet 10 mg PO BID RF: 0 aspirin 81 mg Tablet,Delayed Release (Dr/Ec) 81 mg PO QAM RF: 0 pantoprazole 40 mg Tablet,Delayed Release (Dr/Ec) 40 mg PO HS RF: 0 nitroglycerin 0.4 mg Tablet, Sublingual 0.4 mg sublingual UD RF: 0 lisinopril 5 mg Tablet 5 mg PO QAM RF: 0 dutasteride 0.5 mg Capsule 0.5 mg PO HS RF: 0 cholecalciferol (vitamin D3) [Vitamin D3] 1,000 unit Tablet,Chewable 3,000 unit PO QAM RF: 0 magnesium oxide 400 mg magnesium Tablet 400 mg PO QAM RF: 0 Vitamin C-Galina Hips Er 1000mg tablet 2,000 mg PO QAM RF: 0 Medical Decision Making Laboratory Data Attestation: I reviewed the patient's lab results. Result diagrams: 06/16/19 07:26 06/16/19 07:26 Lab Results 06/16/19 06/16/19 06/16/19 Range/Units 07:26 07:26 07:26 WBC 5.32 (4.8-10.8) K/uL RBC 3.85 L (4.7-6.1) M/uL Hgb 12.7 L (14.0-18.0) g/dL Hct 37.3 L (42-52) % MCV 96.9 (80-100) fL MCH 33.0 (25-34) pg MCHC 34.0 (32-36) g/dL RDW Std Deviation 44.4 (36.4-46.3) fL RDW Coeff of Jaime 12.7 (11.5-14.5) % Plt Count 145 (130-400) K/uL MPV 9.6 (7.4-10.4) fL Immature Gran % (Auto) 0.0 % Neut % (Auto) 65.9 % Lymph % (Auto) 18.2 % Metcalfe % (Auto) 11.7 % Eos % (Auto) 3.6 % Baso % (Auto) 0.6 % Immature Gran # (Auto) 0.00 (0.00-0.02) K/uL Neut # (Auto) 3.51 (1.4-6.5) K/uL Lymph # (Auto) 0.97 L (1.2-3.4) K/uL Metcalfe # (Auto) 0.62 H (0.11-0.59) K/uL Eos # (Auto) 0.19 (0-0.5) K/uL Baso # (Auto) 0.03 (0-0.2) K/uL PT 11.2 (9.0-12.0) Seconds INR 1.1 (0.9-1.1) APTT 25.6 (21.0-31.0) Seconds PTT Ratio 0.9 Sodium 141 (136-145) mmol/L Potassium 4.5 (3.5-5.1) mmol/L Chloride 110 H (98-107) mmol/L Carbon Dioxide 22 (21-32) mmol/L Anion Gap 8.0 (3-11) BUN 43 H (7-18) mg/dl Creatinine 2.26 H (0.6-1.4) mg/dl Est Cr Clr Drug Dosing 27.7 ml/min Est GFR ( Amer) 30.0 Est GFR (Non-Af Amer) 25.9 BUN/Creatinine Ratio 18.8 (10-20) Glucose 96 (70-99) mg/dl Calcium 9.0 (8.5-10.1) mg/dl Magnesium 1.8 (1.8-2.4) mg/dl Total Bilirubin 0.5 (0.2-1) mg/dl AST 20 (15-37) U/L ALT 19 (12-78) U/L Alkaline Phosphatase 70 (45-117) U/L Troponin I < 0.015 (0-0.045) ng/ml Total Protein 6.6 (6.4-8.2) gm/dl Albumin 3.3 L (3.4-5.0) gm/dl Globulin 3.3 (2.5-4.0) gm/dl Albumin/Globulin Ratio 1.0 (0.9-2) Blood Type Antibody Screen 06/16/19 Range/Units 07:26 WBC (4.8-10.8) K/uL RBC (4.7-6.1) M/uL Hgb (14.0-18.0) g/dL Hct (42-52) % MCV (80-100) fL MCH (25-34) pg MCHC (32-36) g/dL RDW Std Deviation (36.4-46.3) fL RDW Coeff of Jaime (11.5-14.5) % Plt Count (130-400) K/uL MPV (7.4-10.4) fL Immature Gran % (Auto) % Neut % (Auto) % Lymph % (Auto) % [place]cal[place] % (Auto) % Eos % (Auto) % Baso % (Auto) % Immature Gran # (Auto) (0.00-0.02) K/uL Neut # (Auto) (1.4-6.5) K/uL Lymph # (Auto) (1.2-3.4) K/uL Metcalfe # (Auto) (0.11-0.59) K/uL Eos # (Auto) (0-0.5) K/uL Baso # (Auto) (0-0.2) K/uL PT (9.0-12.0) Seconds INR (0.9-1.1) APTT (21.0-31.0) Seconds PTT Ratio Sodium (136-145) mmol/L Potassium (3.5-5.1) mmol/L Chloride (98-107) mmol/L Carbon Dioxide (21-32) mmol/L Anion Gap (3-11) BUN (7-18) mg/dl Creatinine (0.6-1.4) mg/dl Est Cr Clr Drug Dosing ml/min Est GFR ( Amer) Est GFR (Non-Af Amer) BUN/Creatinine Ratio (10-20) Glucose (70-99) mg/dl Calcium (8.5-10.1) mg/dl Magnesium (1.8-2.4) mg/dl Total Bilirubin (0.2-1) mg/dl AST (15-37) U/L ALT (12-78) U/L Alkaline Phosphatase (45-117) U/L Troponin I (0-0.045) ng/ml Total Protein (6.4-8.2) gm/dl Albumin (3.4-5.0) gm/dl Globulin (2.5-4.0) gm/dl Albumin/Globulin Ratio (0.9-2) Blood Type A Negative Antibody Screen NEGATIVE Imaging Data Radiologist's Impression: Radiology results as stated below per my review and the radiologist's interpretation: XR chest 1V portable HISTORY: 84 years-old Male stroke acute strokelike symptoms COMPARISON: Chest radiograph 05/20/2018 TECHNIQUE: Portable AP view of the chest FINDINGS: Cardiac silhouette is mildly enlarged, unchanged. Prior median sternotomy with findings suggestive of CABG. Mild blunting of the costophrenic angles is unchanged. No pneumothorax, large pleural effusion or overt pulmonary edema. Mild linear subsegmental bibasilar opacities. Degenerative changes of the shoulders and spine. IMPRESSION: 1. Cardiomegaly without overt pulmonary edema. 2. Minimal bibasilar opacities suggest atelectasis. The above report was generated using voice recognition software. It may contain grammatical, syntax or spelling errors. Electronically signed by: Markus Serrano M.D. 06/16/2019 8:[address] head/brain wo con CLINICAL HISTORY: 84 years-old Male presenting with Stroke evaluation . TECHNIQUE: Multidetector CT imaging of the head was performed without the use of intravenous contrast. IV contrast: None. One or more dose lowering techniques were used consistent with the principles of ALARA (as low as reasonably achievable), including automatic exposure control, mA or kV adjustment to individual patient size, and/or use of iterative reconstruction. COMPARISON: None. CT DOSE (mGy.cm): The estimated cumulative dose is 537.48 mGy.cm. FINDINGS: Supervisor [employer] Loading topogram: Unremarkable. Ventricles and sulci normal in size. No hemorrhage. Periventricular and subcortical white matter hypoattenuation, nonspecific but likely indicative of chronic small vessel ischemic change. No acute territorial infarct. No mass effect or midline shift. No extra-axial fluid collection. Paranasal sinuses and mastoid air cells clear. Calvarium intact. Intracranial atherosclerosis noted. IMPRESSION: 1. Chronic small vessel ischemic change. No acute intracranial abnormality. Electronically signed by: Ernst Langley M.D. 06/16/2019 7:53 AM XR pelvis 1-2V routine CLINICAL HISTORY: L leg weakness COMPARISON: None FINDINGS: Sacroiliac joints and symphysis pubis are intact. There is no fracture or suspicious lesion within the pelvis or hips. There is moderate bilateral hip osteophytosis with joint space narrowing and osteophytosis. IMPRESSION: 1. No acute fracture within the pelvis or hips. 2. Moderate bilateral hip osteoarthritis. Electronically signed by: Marc Leroy M.D. 06/16/2019 7:59 AM ECG Data Indication: + weakness Rate (beats per minute): 51 Rhythm: + sinus rhythm ECG Intervals/blocks: + First degree AV block ECG [place]: + Normal ECG ST segments: no ST depression and no ST elevation ECG Findings: + Other (qr QT/QTc within normal limits) Comparison ECG Date: no prior available
[2019-06-16] MEDS: INSULIN ASPART 100 UNITS/ML 3 ML PEN SC SCH ×3 (14:36→20:41)
--- NOTE | 2019-06-16 14:52 | Emergency Department Note ---
Entered by Luis E Salas acting as a scribe for History of Present Illness General Chief complaint: Neuro Symptoms/Deficit Stated complaint: FALL-NUMBNESS IN LEFT LEG Time Seen by Provider: 06/16/19 07:03 Source: patient Mode of arrival: ambulatory Limitations: no limitations History of Present Illness Onset (ago): hour(s) 3 Location: lower extremity (left leg) Pain Consistency: + now resolved Quality: + other (numb) Exacerbated By: + other Associated symptoms: + other (numbness in left leg ) The patient is a 84 year old male who presents to the Emergency Room with complaints of an episode of a fall that happened this morning at 4 aml. The patient notes that he went to bed at 7-8 pm, which is when he last felt normal. The patient notes that when he got up to use the restroom his left leg was numb and weak, and that he was unable to get up on his own. The patient reports that he called for his and could not get off the floor on his own. He reports that he slid on his butt to his bed and pulled himself to his bed. The patient denies hitting his head or any syncope. He notes that the left leg numbness was intermittent and has gotten better since arrival. He reports that he was ambulatory. Home Medications Home Medications Medication Instructions Recorded Confirmed Type Vitamin C-Galina Hips Er 1000mg 2,000 mg PO QAM 06/16/19 06/16/19 History aspirin 81 mg PO QAM 06/16/19 06/16/19 History atorvastatin 80 mg PO QAM 06/16/19 06/16/19 History cholecalciferol (vitamin D3) 3,000 unit PO QAM 06/16/19 06/16/19 History [Vitamin D3] dutasteride 0.5 mg PO HS 06/16/19 06/16/19 History glipizide 10 mg PO BID 06/16/19 06/16/19 History lisinopril 5 mg PO QAM 06/16/19 06/16/19 History magnesium oxide 400 mg PO QAM 06/16/19 06/16/19 History metoprolol succinate 50 mg PO BID 06/16/19 06/16/19 History nitroglycerin 0.4 mg SUBLINGUAL UD 06/16/19 06/16/19 History pantoprazole 40 mg PO HS 06/16/19 06/16/19 History Allergies Allergy/AdvReac Type Severity Reaction Status Date / Time No Known Allergies Allergy Unverified 06/16/19 07:42 Past Med/Surg History Medical History BPH (benign prostatic hyperplasia) CAD (coronary artery disease) CKD (chronic kidney disease) stage 4, GFR 15-29 ml/min History of supraventricular tachycardia HLD (hyperlipidemia) HTN (hypertension) Hyperparathyroidism PAF (paroxysmal atrial fibrillation) T2DM (type 2 diabetes mellitus) Surgical History History of cataract extraction History of prostate surgery Hx of CABG (Resolved) hx of cabg x 3 2002 Family History Father , 72 Cancer Coronary heart disease Social History Preferred Language: Burmese Communication Ability: Effective Lead Java [id number] Developer Required: No Beliefs That Will Affect Care: None marital status: Current Living Situation: Spouse current occupational status: employed Feels Safe at Home: Yes Safety Concerns: Feels Safe At This Time Smoking Status: Never smoker Smoking End Date: 45+ years ago. ; Hx Alcohol Use: Yes Alcohol type: beer Alcohol type Comment: wednesday will have 1-2 beverages Alcohol Intake Frequency: Weekly Hx Substance Use: No Review of Systems See HPI for pertinent positives & negatives. and A total of 10 systems reviewed and were otherwise negative Physical Exam Vital Signs Vital Signs - 24 hr 06/16/19 06:45 06/16/19 07:00 06/16/19 07:24 Temperature 36.8 C Temperature Source Oral Oral Pulse Rate 59 L 53 L Pulse Rate from SpO2 Sensor Pulse Rhythm Regular Pulse Strength Normal Respiratory Rate 20 17 Respiratory Effort / Characteristics Non-Labored Spontaneous Respiratory Depth Normal Respiratory Pattern Regular Blood Pressure 183/91 H Blood Pressure Mean 121 Blood Pressure Position Sitting Pulse Oximetry 98 98 Oxygen Delivery Method Room Air Room Air Sepsis Recent Fever Within 48 Hours No Sepsis Action Taken by Nursing No Action Required 06/16/19 07:30 06/16/19 07:49 06/16/19 08:00 Temperature Temperature Source Pulse Rate 53 L 57 L 53 L Pulse Rate from SpO2 Sensor 57 L 53 L Pulse Rhythm Pulse Strength Respiratory Rate 16 24 19 Respiratory Effort / Characteristics Respiratory Depth Respiratory Pattern Blood Pressure 162/78 H 166/75 H Blood Pressure Mean 103 119 Blood Pressure Position Pulse Oximetry 99 97 Oxygen Delivery Method Sepsis Recent Fever Within 48 Hours Sepsis Action Taken by Nursing 06/16/19 08:01 06/16/19 08:30 06/16/19 08:55 Temperature Temperature Source Pulse Rate 53 L 62 63 Pulse Rate from SpO2 Sensor 53 L Pulse Rhythm Pulse Strength Respiratory Rate 20 17 21 Respiratory Effort / Characteristics Respiratory Depth Respiratory Pattern Blood Pressure 171/83 H Blood Pressure Mean 114 Blood Pressure Position Pulse Oximetry 96 Oxygen Delivery Method Sepsis Recent Fever Within 48 Hours Sepsis Action Taken by Nursing 06/16/19 09:00 06/16/19 09:01 Temperature Temperature Source Pulse Rate 52 L 52 L Pulse Rate from SpO2 Sensor Pulse Rhythm Pulse Strength Respiratory Rate 16 17 Respiratory Effort / Characteristics Respiratory Depth Respiratory Pattern Blood Pressure 181/80 H Blood Pressure Mean 106 Blood Pressure Position Pulse Oximetry Oxygen Delivery Method Sepsis Recent Fever Within 48 Hours Sepsis Action Taken by Nursing Physical Exam GENERAL: He is oriented to person, place, and time. He appears well-developed and well-nourished. He does not appear distressed. HENT: Exam performed. - Head: Normocephalic and atraumatic. - Right Ear: External ear normal. No mastoid tenderness. - Left Ear: External ear normal. No mastoid tenderness. - Mouth/Throat: The oropharynx is clear and moist. No trismus in the jaw. No dental abscesses or uvula swelling. No oropharyngeal exudate or tonsillar abscesses. EYES: Conjunctivae and EOM are normal. Pupils are equal, round, and reactive to light. Right eye exhibits no discharge. Left eye exhibits no discharge. No scleral icterus. NECK: Normal range of motion. Neck supple. No JVD present. No spinous process tenderness present. No carotid bruit present. No rigidity. No tracheal deviation and normal range of motion present. No Brudzinski's sign and no Kernig's sign noted. CV: Normal rate, regular rhythm, normal heart sounds and intact distal pulses. There is no peripheral edema. Palpable radial pulses bue. PULM/CHEST: Effort normal and breath sounds normal. No respiratory distress. No stridor. He has no wheezes. He has no rales. - Chest Wall: He exhibits no tenderness. ABD: The abdomen is soft. Bowel sounds are normal. He has no distension. No mass is present. There is no tenderness. There is no rebound, no guarding, no Ziegler's sign and no tenderness at McBurney's point. Rovsig negative MUSC/SKEL: Normal range of motion. There is no peripheral edema, tenderness or deformity. LYMPH: No cervical adenopathy. ____ NEURO: Mild stuttering of speech, baseline per patient and at bedside. mild sensory deficient of left lower extremity, mild cerebellar ataxia in left lower extremity, mildly shuffling gait which the patient and state are baseline due to Achilles. SKIN: Skin is warm and dry. He is not diaphoretic. ____ PSYCH: He has a normal mood and affect. His behavior is normal. Judgment and thought content normal. ____ Course Course 0704: The patient was evaluated in room B02. A complete history and physical exam was performed. Patient has a history of SVT, chest pain, diabetes, atrial flutter, CKD. Patient will be evaluated for stroke vs TIA, patient is not a TPA candidate given that he woke up with last symptoms at 4 am, exact onset of symptoms are unknown. Patient is a high risk for thromboembolic disease given his atrial flutter and is not on any anticoagulation 0900: Vitals stable, labs within normal limits, repeat assessment states has mild numb in left lower but has improved, potential TIA given history of irregular heartbeat and no anti coagulation, he will be given aspirin and admitted to [facility] hospitalist. I discussed the patient's case with Dr. Vesna pinto, [facility] hospitalist. The patient will be admitted for further treatment Administered Medications Insulin Aspart (Novolog Flexpen) 0 units SC ACHS [facility] Stop: 07/16/19 13:19 Last Admin: 06/16/19 14:36 Dose: Not Given Documented by: [id number] Discontinued Medications Aspirin (Aspirin) 324 mg PO NOW STA Stop: 06/16/19 09:25 Last Admin: 06/16/19 10:15 Dose: 324 mg Documented by: [id number] Medical Decision Making Medical Records Attestation: I reviewed the patient's medical records. Home Medications Current Medication List: was personally reviewed by me Laboratory Data Attestation: I reviewed the patient's lab results. Result diagrams: 06/16/19 07:26 06/16/19 07:26 Lab Results 06/16/19 06/16/19 06/16/19 Range/Units 07:26 07:26 07:26 WBC 5.32 (4.8-10.8) K/uL RBC 3.85 L (4.7-6.1) M/uL Hgb 12.7 L (14.0-18.0) g/dL Hct 37.3 L (42-52) % MCV 96.9 (80-100) fL MCH 33.0 (25-34) pg MCHC 34.0 (32-36) g/dL RDW Std Deviation 44.4 (36.4-46.3) fL RDW Coeff of Jaime 12.7 (11.5-14.5) % Plt Count 145 (130-400) K/uL MPV 9.6 (7.4-10.4) fL Immature Gran % (Auto) 0.0 % Neut % (Auto) 65.9 % Lymph % (Auto) 18.2 % Grundy % (Auto) 11.7 % Eos % (Auto) 3.6 % Baso % (Auto) 0.6 % Immature Gran # (Auto) 0.00 (0.00-0.02) K/uL Neut # (Auto) 3.51 (1.4-6.5) K/uL Lymph # (Auto) 0.97 L (1.2-3.4) K/uL Grundy # (Auto) 0.62 H (0.11-0.59) K/uL Eos # (Auto) 0.19 (0-0.5) K/uL Baso # (Auto) 0.03 (0-0.2) K/uL PT 11.2 (9.0-12.0) Seconds INR 1.1 (0.9-1.1) APTT 25.6 (21.0-31.0) Seconds PTT Ratio 0.9 Sodium 141 (136-145) mmol/L Potassium 4.5 (3.5-5.1) mmol/L Chloride 110 H (98-107) mmol/L Carbon Dioxide 22 (21-32) mmol/L Anion Gap 8.0 (3-11) BUN 43 H (7-18) mg/dl Creatinine 2.26 H (0.6-1.4) mg/dl Est Cr Clr Drug Dosing 27.7 ml/min Est GFR ( Amer) 30.0 Est GFR (Non-Af Amer) 25.9 BUN/Creatinine Ratio 18.8 (10-20) Glucose 96 (70-99) mg/dl Calcium 9.0 (8.5-10.1) mg/dl Magnesium 1.8 (1.8-2.4) mg/dl Total Bilirubin 0.5 (0.2-1) mg/dl AST 20 (15-37) U/L ALT 19 (12-78) U/L Alkaline Phosphatase 70 (45-117) U/L Troponin I < 0.015 (0-0.045) ng/ml Total Protein 6.6 (6.4-8.2) gm/dl Albumin 3.3 L (3.4-5.0) gm/dl Globulin 3.3 (2.5-4.0) gm/dl Albumin/Globulin Ratio 1.0 (0.9-2) Blood Type Antibody Screen 06/16/19 Range/Units 07:26 WBC (4.8-10.8) K/uL RBC (4.7-6.1) M/uL Hgb (14.0-18.0) g/dL Hct (42-52) % MCV (80-100) fL MCH (25-34) pg MCHC (32-36) g/dL RDW Std Deviation (36.4-46.3) fL RDW Coeff of Jaime (11.5-14.5) % Plt Count (130-400) K/uL MPV (7.4-10.4) fL Immature Gran % (Auto) % Neut % (Auto) % Lymph % (Auto) % Grundy % (Auto) % Eos % (Auto) % Baso % (Auto) % Immature Gran # (Auto) (0.00-0.02) K/uL Neut # (Auto) (1.4-6.5) K/uL Lymph # (Auto) (1.2-3.4) K/uL Grundy # (Auto) (0.11-0.59) K/uL Eos # (Auto) (0-0.5) K/uL Baso # (Auto) (0-0.2) K/uL PT (9.0-12.0) Seconds INR (0.9-1.1) APTT (21.0-31.0) Seconds PTT Ratio Sodium (136-145) mmol/L Potassium (3.5-5.1) mmol/L Chloride (98-107) mmol/L Carbon Dioxide (21-32) mmol/L Anion Gap (3-11) BUN (7-18) mg/dl Creatinine (0.6-1.4) mg/dl Est Cr Clr Drug Dosing ml/min Est GFR ( Amer) Est GFR (Non-Af Amer) BUN/Creatinine Ratio (10-20) Glucose (70-99) mg/dl Calcium (8.5-10.1) mg/dl Magnesium (1.8-2.4) mg/dl Total Bilirubin (0.2-1) mg/dl AST (15-37) U/L ALT (12-78) U/L Alkaline Phosphatase (45-117) U/L Troponin I (0-0.045) ng/ml Total Protein (6.4-8.2) gm/dl Albumin (3.4-5.0) gm/dl Globulin (2.5-4.0) gm/dl Albumin/Globulin Ratio (0.9-2) Blood Type A Negative Antibody Screen NEGATIVE Imaging Data Radiologist's Impression: Radiology results as stated below per my review and the radiologist's interpretation: XR chest 1V portable HISTORY: 84 years-old Male stroke acute strokelike symptoms COMPARISON: Chest radiograph 05/20/2018 TECHNIQUE: Portable AP view of the chest FINDINGS: Cardiac silhouette is mildly enlarged, unchanged. Prior median sternotomy with findings suggestive of CABG. Mild blunting of the costophrenic angles is unchanged. No pneumothorax, large pleural effusion or overt pulmonary edema. Mild linear subsegmental bibasilar opacities. Degenerative changes of the shoulders and spine. IMPRESSION: 1. Cardiomegaly without overt pulmonary edema. 2. Minimal bibasilar opacities suggest atelectasis. The above report was generated using voice recognition software. It may contain grammatical, syntax or spelling errors. Electronically signed by: Markus Serrano M.D. 06/16/2019 8:[address] head/brain wo con CLINICAL HISTORY: 84 years-old Male presenting with Stroke evaluation . TECHNIQUE: Multidetector CT imaging of the head was performed without the use of intravenous contrast. IV contrast: None. One or more dose lowering techniques were used consistent with the principles of ALARA (as low as reasonably achievable), including automatic exposure control, mA or kV adjustment to individual patient size, and/or use of iterative reconstruction. COMPARISON: None. CT DOSE (mGy.cm): The estimated cumulative dose is 537.48 mGy.cm. FINDINGS: Calculation Clerk topogram: Unremarkable. Ventricles and sulci normal in size. No hemorrhage. Periventricular and subcortical white matter hypoattenuation, nonspecific but likely indicative of chronic small vessel ischemic change. No acute territorial infarct. No mass effect or midline shift. No extra-axial fluid collection. Paranasal sinuses and mastoid air cells clear. Calvarium intact. Intracranial atherosclerosis noted. IMPRESSION: 1. Chronic small vessel ischemic change. No acute intracranial abnormality. Electronically signed by: Ernst Langley M.D. 06/16/2019 7:53 AM XR pelvis 1-2V routine CLINICAL HISTORY: L leg weakness COMPARISON: None FINDINGS: Sacroiliac joints and symphysis pubis are intact. There is no fracture or suspicious lesion within the pelvis or hips. There is moderate bilateral hip osteophytosis with joint space narrowing and osteophytosis. IMPRESSION: 1. No acute fracture within the pelvis or hips. 2. Moderate bilateral hip osteoarthritis. Electronically signed by: Marc Leroy M.D. 06/16/2019 7:59 AM MR brain wo con HISTORY: 84 years-old Male Neuro sx, L leg weakness r/o CVA acute left leg numbness with weakness COMPARISON: Head CT of same day TECHNIQUE: Multiplanar multisequence MRI of the brain was obtained without the use of IV contrast. FINDINGS: Calculation Clerk localizer images demonstrate no gross extracranial abnormality. There is no restricted diffusion to suggest acute or subacute infarction. Artifact from dental amalgam hardware and dental implants limits the study. Midline structures including the corpus callosum, brainstem, optic chiasm, pituitary and pineal glands appear unremarkable as seen on the sagittal T1 series. No cerebellar tonsillar herniation. Degenerative changes are noted about the imaged cervical spine. There is no acute intracranial hemorrhage, midline shift, abnormal extra-axial collection, hydrocephalus or intracranial mass. Mild age-related involutional changes. Patchy T2/FLAIR hyperintensities are noted about the white matter with the largest foci noted within the periventricular distributions, right greater than left. A single focus is also within the superior right cerebellum measuring 8 mm. The major flow voids appear patent. Mastoid air cells are clear. Mild mucosal thickening of the frontal and ethmoid sinuses. Prior bilateral cataract appear. Skull and soft tissues are unremarkable. IMPRESSION: 1. No acute intracranial abnormality, specifically no acute or subacute infarction. 2. Age-related involutional changes with indeterminate patchy T2/FLAIR hyperintensities within the white matter, predominantly within a periventricular distribution with subcentimeter focus of the superior right cerebellum. In a patient of this age group, these findings likely represent chronic microvascular ischemic disease with underlying demyelinating process not excluded. Correlate with clinical history. The above report was generated using voice recognition software. It may contain grammatical, syntax or spelling errors. Electronically signed by: Markus Serrano M.D. 06/16/2019 12:21 PM US carotid doppler BI CLINICAL HISTORY: 84 years-old Male with CVA work up. Acute stroke like symp toms COMPARISON: Brain MRI of same day TECHNIQUE: Multiple real time sonographic images of the carotid bifurcations were obtained assessing james scale, color Doppler and spectral wave form appeara nce FINDINGS: RIGHT CAROTID: The peak systolic velocity within the proximal right ICA [id number] cm/sec. The end diastolic velocity measured 35 cm/sec. The ICA to CCA ratio measured 2.4 which correlates with a stenosis of 0-50%. Extensive calcified plaque of the right carotid bulb and proximal right ICA. LEFT CAROTID: The peak systolic velocity within the proximal left ICA [id number] cm/sec. The end diastolic velocity measured 17 cm/sec. The ICA to CCA ratio measured 0.96 which correlates with a stenosis of 0-50%. Extensive mostly calcified plaque of the left carotid bulb and proximal left ICA. There is normal antegrade vertebral flow bilaterally. Blood pressure on the right measures 164/75 and on the left measures 146/73. IMPRESSION: 1. Extensive calcified plaque of the bilateral carotid bulbs results in 50-69% stenosis on the right and less than 50% stenosis on the left. 2. Antegrade flow of the bilateral vertebral arteries. The above report was generated using voice recognition software. It may contain grammatical, syntax or spelling errors. Electronically signed by: Markus Serrano M.D. 06/16/2019 1:01 PM ECG Data Indication: + weakness Rate (beats per minute): 51 Rhythm: + sinus rhythm ECG Intervals/blocks: + First degree AV block, + Normal QRS and + Normal QT ECG ST segments: no ST depression and no ST elevation Blood Pressure Blood Pressure Findings: Elevated blood pressure Blood Pressure Disposition: further management by hospitalist [place] Narrative 0704: The patient was evaluated in room B02. A complete history and physical exam was performed. Patient has a history of SVT, chest pain, diabetes, atrial flutter, CKD. Patient will be evaluated for stroke vs TIA, patient is not a TPA candidate given that he woke up with last symptoms at 4 am, exact onset of symptoms are unknown. Patient is a high risk for thromboembolic disease given his atrial flutter and is not on any anticoagulation 0900: Vitals stable, labs within normal limits, repeat assessment states has mild numb in left lower but has improved, potential TIA given history of irregular heartbeat and no anti coagulation, [facility] be given aspirin [facility] I discussed the patient's case with Dr. Allan[facility] The patient will be admitted for further treatment Impression & Plan TIA (transient ischemic attack) Discharge Plan Visit Data *Final* Discharge Date/Time: 06/16/19 11:33 Chief Complaint: Neuro Symptoms/Deficit Stated Complaint: FALL-NUMBNESS IN LEFT LEG ED Provider: Reynold Camarillo Discharge Problem: TIA (transient ischemic attack) Patient Disposition: Admitted As Inpatient Discharge Instructions Interventions: ED Discharge Assessment Last Done: 06/16/19 11:33 The scribe's documentation has been prepared under my direction and personally reviewed by me in its entirety. I confirm that the note above accurately reflects all work, treatment, procedures, and medical decision making performed by me.
[2019-06-16] MEDS: LISINOPRIL 5 MG TAB PO SCH (17:40)
[2019-06-16] MEDS: METOPROLOL SUCC 50MG EXT REL TAB PO SCH (20:42)
[2019-06-16] MEDS ORDERED: PANTOprazole 40 MG TAB PO SCH (21:00)
[2019-06-17 07:11] LABS: Basophils # (auto) 0.05 K/uL (0-0.2); Eosinophils # (auto) 0.24 K/uL (0-0.5); Eosinophils % (auto) 4.7 %; Hematocrit (blood only) 35.7 % (42-52); Hemoglobin 12.5 g/dL (14.0-18.0); Immature Granulocytes # (auto) 0.01 K/uL (0.00-0.02); Immature Granulocytes % (auto) 0.2 %; Lymphocytes % (auto) 19.5 %; Mean Corpuscular Hemoglobin 33.1 pg (25-34); Mean Corpuscular Volume 94.4 fL (80-100); Mean Platelet Volume 9.5 fL (7.4-10.4); Monocytes # (auto) 0.85 K/uL (0.11-0.59); Monocytes % (auto) 16.6 %; Neutrophils # (auto) 2.98 K/uL (1.4-6.5); Platelet Count 143 K/uL (130-400); RDW Coefficient of Variation 12.5 % (11.5-14.5); RDW Standard Deviation 43.2 fL (36.4-46.3); Red Blood Count 3.78 M/uL (4.7-6.1); White Blood Count 5.13 K/uL (4.8-10.8)
--- NOTE | 2019-06-17 07:29 | Discharge Summary ---
Date of Service June 17, 2019 Admission HPI Per Admitting Provider Mr. Mata is an 84-year-old male who has significant past medical history of CAD with history of CABG x3 in 2003, HTN, HLD, T2DM, CKD stage IV, PAF not on oral anticoagulation, history of SVT, BPH who presents to [facility] ED secondary to left lower extremity weakness and numbness starting at 4 AM. His Radha is at bedside. At approximately 4 AM patient woke up to use the bathroom. When he tried to get off the toilet he noticed he had left leg numbness and weakness, and ended up sliding off the toilet onto the floor. There was no known injury and he did not hit his head or pass out. He called for his for assistance, but she was unable to help. He scooted himself from the bathroom to the bed and was able to pull himself up and lie back down for approximately another hour. When he woke up again around 5 AM or 5:30 AM he got out of bed again and noticed he had continued left lower extremity numbness from the knee down, but it was improved from first thing this morning. Because symptoms were still present he opted to seek medical attention at ED. He denies any recent illness, fever, chills, sweats, lightheadedness, syncope, change in vision, change in hearing, diplopia, chest pain, palpitations, cough, hemoptysis, nausea, vomiting, diarrhea, change in his bowel or urinary habits. He otherwise has a good appetite at baseline. He did take his morning medic ations including ASA 81 mg, lisinopril 5 mg, metoprolol 50 mg. He denies any difficulty swallowing. Denies any facial droop or upper extremity weakness. He has a baseline speech impediment and his feels it was at baseline throughout the entire event. He also has known torn left Achilles which causes him to walk with a limp and use a brace. He currently does not feel he has any change in his gait from baseline. Admission Exam Per Admitting Provider Constitutional: WD/WN, vitals as above, NAD, sitting up in bed, pleasant, conversing easily, speech impediment and stutter Head: Normocephalic, Atraumatic Eyes: PERRL, conjunctivae normal, anicteric sclerae ENMT: external ear and nose normal, oropharynx normal Neck: trachea midline, no thyromegaly normal visual inspection Respiratory: normal respiratory effort, lungs clear to auscultation, no wheeze, rales, rhonchi. Normal insp/exp effort, no accessory muscle use Cardiovascular: Bradycardic rate but regular rhythm, no murmur, no edema Vessels: no JVD or carotid bruit Chest: normal inspection of chest Abdomen: normal bowel sounds, soft, nontender, no hepatosplenomegaly Musculoskeletal: no cyanosis or clubbing, extremities motor strength 5/5, except left lower extremity distally 4/5, mild sensory deficit left lower extremity distally Skin: no rashes, warm and dry normal turgor Neurologic: PERRL, EOMI, accommodation nl, no face palsy, speech impediment and stutter. CN's II-XI intact bilaterally and moves all extremities Psychiatric: A+Ox3, euthymic affect Lymphatic: no cervical or axillary lymphadenopathy : deferred Principal Diagnosis (1) Weakness LLE (2) CAD (coronary artery disease): (3) PAF (paroxysmal atrial fibrillation): (4) HTN (hypertension): (5) HLD (hyperlipidemia): (6) CKD (chronic kidney disease) stage 4, GFR 15-29 ml/min: (7) T2DM (type 2 diabetes mellitus): (8) BPH (benign prostatic hyperplasia): Discharge Exam Physical Exam Gen-AAO x 3, NAD, Afebrile, Mild speech Impediment Head-NCAT, EOMI, PERRLA, Anicteric Sclera, No Posterior Pharyngeal Erythema Neck-Supple, No JVD, No Thyromegaly, No Masses, No LAD, No Bruits Lungs-Clear to Auscultation Bilaterally, No Rales, No Rhonchi, No Wheezing, No Crepitus Chest-No S4, +S1, +S2, No S3, No Murmurs, No Rubs, No Gallops, No Ectopy Abdomen-Soft, Bowel Sounds Present, Non Tender, Non Distended, No Hepatomegaly, No Splenomegaly, No Palpable Masses, No Rebound, No Rigidity, No Guarding Musculoskeletal-Full Range of Motion Bilaterally, No CVAT Extremities-No Cyanosis, No Clubbing, No Edema Nuero-Cranial Nerves II-XII grossly intact, Motor WNL, DTRs WNL, Strength WNL, Non Focal Psych-Normal Mood Discharge Data Allergies Allergy/AdvReac Type Severity Reaction Status Date / Time No Known Allergies Allergy Unverified 06/16/19 07:42 Consultations 06/16/19 09:25 ED Decision to Admit Stat 06/16/19 10:05 Consult Neurology Routine 06/16/19 13:20 Consult Case Management - Discharge Planning Routine Ordered Studies 06/16/19 07:15 CT head/brain wo con Stat 06/16/19 10:05 MR brain wo con Routine - Small vessel Dz US carotid doppler BI Routine Current Diagnoses Type 2 diabetes mellitus without complications (06/16/19) Hyperlipidemia, unspecified (06/16/19) Essential (primary) hypertension (06/16/19) Atherosclerotic heart disease of [place] coronary artery without angina pectoris (06/16/19) Paroxysmal atrial fibrillation (06/16/19) Chronic kidney disease, stage 4 (severe) (06/16/19) Benign prostatic hyperplasia without lower urinary tract symptoms (06/16/19) Unspecified symptoms and signs involving the nervous system (06/16/19) Encounter for prophylactic measures, unspecified (06/16/19) Allergies No Known Allergies Allergy (Unverified 06/16/19 07:42) Height/Weight/Isolation Height 5 ft 10 in Weight 89.3 kg Chemistry 06/16/19 07:26 Sodium 141 Potassium 4.5 Chloride 110 H Carbon Dioxide 22 Anion Gap 8.0 BUN 43 H Creatinine 2.26 H Glucose 96 Hospital Course (1) Stroke-like symptoms: Mr. Mata is an 84-year-old male who has significant past medical history of CAD with history of CABG x3 in 2002, HTN, HLD, T2DM, CKD stage IV, PAF not on oral anticoagulation, history of SVT, BPH who presents to [facility] ED secondary to left lower extremity weakness and numbness starting at 4 AM. Sx still present but improved, he was not a TPA candidate per ED provider, stroke alert not initiated MRI Neg for CVA CT head negative of hemorrhage, but + chronic small vessel disease CBC/CMP relatively unremarkable except for H&H 12.7 and 37.3, known CKD stage III with creatinine of 2.26 Echocardiogram ordered Zio patch as outpatient (2) CAD (coronary artery disease): hx of CABG in 2002 no chest pain or SOB on ASA, statin, metoprolol and lisinopril as outpt (3) PAF (paroxysmal atrial fibrillation): On metoprolol for rate control Currently bradycardic with heart rate of 52 [id number] score 7 ASA and Plavix x 21 days then DC ASA, F/U c Dr Villareal in 4-6 weeks (4) HTN (hypertension): Resume home regimen (5) HLD (hyperlipidemia): Continue high intensity statin therapy (6) CKD (chronic kidney disease) stage 4, GFR 15-29 ml/min: Baseline creatinine 2.2 BUN/creatinine stable at 43 and 2.26 (7) T2DM (type 2 diabetes mellitus): Well-controlled as outpatient, last A1c 01/2019 6.5 (8) BPH (benign prostatic hyperplasia): On dutasteride as outpatient (9) DVT prophylaxis: Disposition: DC Home Follow-up: PCP Dr. Lugo upon discharge Total Time Total Time Spent Total Time Spent (In Minutes): 45 mins Total Time Includes: Examination of the Patient, Discharge Planning, Medication Reconciliation and Communication With Other Providers Discharge Plan Discharge Items Patient Disposition: Home - Self-Care Reason For Visit: TIA NEURO SX Discharge Diagnosis: (1) Weakness LLE (2) CAD (coronary artery disease): (3) PAF (paroxysmal atrial fibrillation): (4) HTN (hypertension): (5) HLD (hyperlipidemia): (6) CKD (chronic kidney disease) stage 4, GFR 15-29 ml/min: (7) T2DM (type 2 diabetes mellitus): (8) BPH (benign prostatic hyperplasia): Condition on Discharge: Good Activity: Resume your previous activity Lifting: Gradually increase as tolerated Bathing: No limitations Sexual Activity: When tolerated Exercise/Sports: Gradually increase as tolerated Driving/Machine Use: No limitations Weightbearing: Full weightbearing Non-emergency contact: Primary Care Provider and Neurologist Call non-emergency contact if: you have any medication questions Follow-up/Referrals: Eulogio Lugo DO [Primary Care Provider] - (Call for first opening) Matt Villareal MD [Physician] - (follow up in 4-6 weeks, call for opening on Wednesday) Diet: Carb Consistent or DM2 and Heart Healthy Addtl Attending Provider Instructions: None Pending Studies at Discharge: No Stand-Alone Forms: My [facility], Smoking Cessation Skilled Items Patient informed of condition?: Yes DNR: No Communicable Disease: No Medications and DC Order Prescriptions: New clopidogrel 75 mg tablet 75 mg PO DAILY Qty: 30 RF: 0 Continued atorvastatin 80 mg Tablet 80 mg PO QAM RF: 0 metoprolol succinate 50 mg Tablet Extended Release 24 Hr 50 mg PO BID RF: 0 glipizide 10 mg Tablet 10 mg PO BID RF: 0 pantoprazole 40 mg Tablet,Delayed Release (Dr/Ec) 40 mg PO HS RF: 0 nitroglycerin 0.4 mg Tablet, Sublingual 0.4 mg sublingual UD RF: 0 lisinopril 5 mg Tablet 5 mg PO QAM RF: 0 dutasteride 0.5 mg Capsule 0.5 mg PO HS RF: 0 cholecalciferol (vitamin D3) [Vitamin D3] 1,000 unit Tablet,Chewable 3,000 unit PO QAM RF: 0 magnesium oxide 400 mg magnesium Tablet 400 mg PO QAM RF: 0 Vitamin C-Galina Hips Er 1000mg tablet 2,000 mg PO QAM RF: 0 aspirin 81 mg Tablet,Delayed Release (Dr/Ec) 81 mg PO QAM Qty: 30 RF: 0 Discharge Orders: Discharge Order (Routine); Ordered 06/17/19 Ordered By: Matthew Allan Admission Data Admit Date/Time: 06/16/19 10:05 Attending Provider: Matthew Allan Admit Provider: Matthew Allan Primary Care Provider: Eulogio Lugo Other Providers: Matt Villareal ; Matthew Allan
[2019-06-17] MEDS ORDERED: STROKE PATIENT DISCHARGE STA (07:42)
[2019-06-17 07:50] LABS: Estimated Average Glucose 134 mg/dl; Hemoglobin A1C 6.3 % (4.5-5.6)
[2019-06-17 07:51] LABS: Potassium 4.5 mmol/L (3.5-5.1)
[2019-06-17 07:52] LABS: BUN Creatinine Ratio 16.3 (10-20); Calcium 8.6 mg/dl (8.5-10.1); Creatinine Clr Calc Pharmacy 29.8 ml/min; Est GFR (African American) 32.6; Est GFR (Non-African American) 28.1
[2019-06-17] MEDS: INSULIN ASPART 100 UNITS/ML 3 ML PEN SC SCH (08:35)
[2019-06-17] MEDS: METOPROLOL SUCC 50MG EXT REL TAB PO SCH (08:37)
[2019-06-17] MEDS: LISINOPRIL 5 MG TAB PO SCH (08:39)
[2019-06-17] MEDS ORDERED: ASPIRIN 81 MG ECTAB PO SCH (09:00)
[2019-06-17] MEDS ORDERED: MAGNESIUM OXIDE 400 MG TAB PO SCH (09:00)
[2019-06-17] MEDS ORDERED: ATORVASTATIN 40 MG TAB PO SCH (09:00)
[2019-06-17] MEDS ORDERED: CHOLECALCIFEROL 1,000 UNITS TAB PO SCH (09:00)
--- NOTE | 2019-06-17 09:24 | Pharmacy Report ---
Pharmacist Stroke Counseling - Date of Service June 17, 2019 - Scope: Pharmacy has been consulted to provide medication discharge counseling for this patient admitted with transient ischemic attack as per the Pharmacist Discharge Counseling for Stroke Patients Protocol. - Medications on Discharge: Home Medications Medication Instructions Recorded Confirmed Vitamin C-Galina Hips Er 1000mg 2,000 mg PO QAM 06/16/19 06/16/19 aspirin 81 mg PO QAM 06/16/19 06/16/19 atorvastatin 80 mg PO QAM 06/16/19 06/16/19 cholecalciferol (vitamin D3) 3,000 unit PO QAM 06/16/19 06/16/19 [Vitamin D3] dutasteride 0.5 mg PO HS 06/16/19 06/16/19 glipizide 10 mg PO BID 06/16/19 06/16/19 lisinopril 5 mg PO QAM 06/16/19 06/16/19 magnesium oxide 400 mg PO QAM 06/16/19 06/16/19 metoprolol succinate 50 mg PO BID 06/16/19 06/16/19 nitroglycerin 0.4 mg SUBLINGUAL UD 06/16/19 06/16/19 pantoprazole 40 mg PO HS 06/16/19 06/16/19 New Rx's Medication Instructions Recorded clopidogrel 75 mg PO DAILY #30 tab 06/17/19 - Action: The above medications, specifically ones for stroke treatment/prophylaxis, have been reviewed in detail with the patient and/or patient business banking representative(s) prior to discharge. This includes indication, common adverse reactions, drug interactions, and medication administration. Medication counseling has been employed using the teach-back method to ensure understanding. - Outcome: The patient and/or patient business banking representative(s) have demonstrated understanding of the medications. Please note, they are aware that the pharmacist will call them within 72 hours post-discharge to confirm that the appropriate medications are being taken and answer any further medication related questions the patient might have at that time. Contact information Individual to be contacted: Mr. Mata (patient) Phone number: [phone] (cell) Best time to call: afternoon Additional comments: - Patient and spouse demonstrated clear understanding of new medication, Plavix, including how to take, possible adverse effects, missed dose instructions, and i nteraction with OTC heartburn medications (of note, patient is on pantoprazole for GERD which he states works well so little chance of omeprazole being used) - Instructed patient to let all of his healthcare providers know that he has been started on DAPT - Reiterated that patient should stop aspirin after 21 days and continue plavix for lifetime Thank you for allowing pharmacy to be involved in the care of this patient. Please call [phone] or [phone] with any additional questions
--- NOTE | 2019-06-20 14:34 | Pharmacy Report ---
Pharmacist Post D/C Phone Note - Phone Note: The patient and/or patient kiosk sales representative(s) were unable to be reached for a follow-up phone call within the 72 hour time frame due to voicemail box being full. Discharge counseling pharmacist contact information has already been provided to the patient should questions arise. Thank you for allowing us to be involved in the care of this patient. - Home Medications: Home Medications Medication Instructions Recorded Confirmed Vitamin C-Galina Hips Er 1000mg 2,000 mg PO QAM 06/16/19 06/16/19 atorvastatin 80 mg PO QAM 06/16/19 06/16/19 cholecalciferol (vitamin D3) 3,000 unit PO QAM 06/16/19 06/16/19 [Vitamin D3] dutasteride 0.5 mg PO HS 06/16/19 06/16/19 glipizide 10 mg PO BID 06/16/19 06/16/19 lisinopril 5 mg PO QAM 06/16/19 06/16/19 magnesium oxide 400 mg PO QAM 06/16/19 06/16/19 metoprolol succinate 50 mg PO BID 06/16/19 06/16/19 nitroglycerin 0.4 mg SUBLINGUAL UD 06/16/19 06/16/19 pantoprazole 40 mg PO HS 06/16/19 06/16/19 New Rx's Medication Instructions Recorded aspirin 81 mg PO QAM #30 tab 06/17/19 clopidogrel 75 mg PO DAILY #30 tab 06/17/19
== END 2019-06-17 10:01 | disposition home or self-care (01) | DRG 948 ==
LOC: ED 06:43 → 2S 10:05

== ENCOUNTER 2021-06-11 05:17 | Observation (INO) ==
[2021-06-11] MEDS ORDERED: SODIUM CHLORIDE 0.9% 1000ML 500 ML IV ONE (05:31)
[2021-06-11] MEDS ORDERED: MoRPHine SULFATE 4 MG/ML 1 ML CARP\\VIAL IV STA (05:31)
[2021-06-11] MEDS ORDERED: ONDANSETRON INJ 2 MG/ML 2 ML VIAL IV STA (05:32)
[2021-06-11] MEDS ORDERED: MoRPHine SULFATE 2 MG/ML CARP IV STA (05:32)
--- NOTE | 2021-06-11 05:34 | Emergency Department Note ---
Impression & Plan Chest pain ADMIT ED Provider Note HPI: The patient is an 86-year-old gentleman with history of tachybradycardia syndrome with pacemaker implantation done just yesterday, presents the emergency department chief complaint of mild chest discomfort. Patient states that he awoke from sleep shortly prior to arrival to the ED with some mild left-sided chest pain. He arrives via EMS. On arrival the patient states that he still does have some mild chest discomfort although it is improved from previous. He is tachycardic on arrival but otherwise hemodynamically stable, he is saturating well on room air. ROS: -Cardio: Chest pain *10 point review systems was conducted and is otherwise negative unless stated above *Outpatient medications and allergy history reviewed PE: General: Alert, NAD HEENT: Normocephalic, atraumatic, trachea midline Eyes: Extraocular eye movement is intact, no scleral erythema Pulmonary: Clear to auscultation bilaterally, no wheezing Cardio: Tachycardic rate with regular rhythm GI: Abdomen is soft, nontender : No suprapubic tenderness MSK: No evidence of trauma or malformation of the extremities, no edema Skin: No evidence of rash Neuro: Alert, no focal deficits Psychiatric: Cooperative engine monitor: - An order was placed for continuous cardiac monitoring - Patient was noted to be in sinus rhythm with rate of 121 EKG: Rate: 128 Rhythm: Accelerated junctional rhythm Intervals: Within normal limits ST changes: No ST elevation Time: 0522 Medical Decision Making: Patient presented to the emergency department the chief complaint of chest pain. Had a pacemaker placed just yesterday. Unclear whether this might be related or not. He does not have any acute ischemic changes on his EKG, troponin is slightly elevated 0.36 although this may be postprocedural in nature. Patient was ordered aspirin in the ED. On my reassessment he is resting comfortably, blood pressure is stable, he remains slightly tachycardic, states his pain is improved following IV morphine. He denies any shortness of breath and is saturating well on room air, low suspicion for PE although his INR is subtherapeutic, his GFR is only about 16, creatinine is elevated at 3.3, therefore will defer CT angiography at this time to the admitting team for further care. Case was discussed with the on-call hospitalist for the [facility], Dr. Mallory, patient will be admitted for further management and likely cardiology consultation. Patient was in agreement to this plan as was his [id number] at the bedside, patient was admitted in stable condition. * Diagnosis: Chest pain, elevated troponin * Disposition: Admission Efraín Hayes DO Emergency Medicine Past Med/Surg History Medical History Benign localized hyperplasia of prostate with urinary obstruction BPH (benign prostatic hyperplasia) CAD (coronary artery disease) Chronic prostatitis CKD (chronic kidney disease) stage 4, GFR 15-29 ml/min Diabetes mellitus History of supraventricular tachycardia HLD (hyperlipidemia) HTN (hypertension) Hyperparathyroidism PAF (paroxysmal atrial fibrillation) SVT (supraventricular tachycardia) T2DM (type 2 diabetes mellitus) UTI (urinary tract infection), bacterial Surgical History History of cataract extraction History of prostate surgery Hx of CABG hx of cabg x 3 2002 Family History Father , 72 Cancer Coronary heart disease Social History Smoking Status: Former smoker Tobacco Type: Pipe Second Hand Exposure: No; Hx Alcohol Use: Yes Alcohol type: beer Alcohol type Comment: wednesday will have 1-2 beverages Hx Substance Use: No Preferred Language: Bengali Communication Ability: Effective Assembler Unit Required: No Beliefs That Will Affect Care: None marital status: Current Living Situation: Alone current occupational status: employed How many Children do You have: 1 Feels Safe at Home: Yes Assistive Devices: Glasses Allergies Allergies Allergy/AdvReac Type Severity Reaction Status Date / Time No Known Allergies Allergy Unverified 06/11/21 07:13 Home Meds Home Medications Medication Instructions Recorded Confirmed atorvastatin 80 mg tablet (Lipitor) 80 mg PO QAM 06/16/19 06/11/21 cholecalciferol (vitamin D3) 25 3,000 unit PO QAM 06/16/19 06/11/21 mcg (1,000 unit) chewable tablet (Vitamin D3) magnesium oxide 400 mg PO QAM 06/16/19 06/11/21 metoprolol succinate 50 mg 50 mg PO BID 06/16/19 06/11/21 tablet,extended release 24 hr (Toprol XL) nitroglycerin 0.4 mg sublingual 0.4 mg SUBLINGUAL UD 06/16/19 06/11/21 tablet (Nitrostat) pantoprazole 40 mg tablet,delayed 40 mg PO DAILY 06/16/19 06/11/21 release (Protonix) diphenhydramine 25 1 tab PO HS 10/14/19 06/11/21 mg-acetaminophen 500 mg tablet (Tylenol PM Extra Strength) dutasteride 0.5 mg capsule 0.5 mg PO QAM 07/13/20 06/11/21 (Avodart) glipizide 2.5 mg tablet, extended 2.5 mg PO QAM 01/19/21 06/11/21 release 24 hr (Glucotrol XL) warfarin 3 mg tablet (Jantoven) 3 mg PO QAM 03/28/21 06/11/21 ascorbic acid (vitamin C) 500 mg 2,000 mg PO DAILY 06/10/21 06/11/21 chewable tablet warfarin 3 mg tablet 1.5 mg PO DAILY 06/11/21 06/11/21 Previous Rx's Medication Instructions Recorded amiodarone 200 mg tablet 200 mg PO QAM #30 tab 06/12/21 amlodipine 5 mg tablet (Norvasc) 5 mg PO QAM #30 tab 06/12/21 aspirin 81 mg tablet,delayed 81 mg PO QAM #30 tab 06/12/21 release enoxaparin 120 mg/0.8 mL 120 mg SUBCUT DAILY #4 ml 06/13/21 subcutaneous syringe (Lovenox) Results & Data (ED) Vital Signs Vital Signs - 24 hr 06/11/21 05:26 06/11/21 05:32 06/11/21 06:00 Temperature 37.0 C Temperature Source Oral Pulse Rate 129 H 124 H Pulse Rate from SpO2 Sensor 126 H Respiratory Rate 24 12 Blood Pressure 117/75 118/75 Blood Pressure Mean 89 89 Pulse Oximetry 98 96 98 Oxygen Delivery Method Room Air Room Air Room Air Sepsis Recent Fever Within 48 Hours No Sepsis New/Unexplained Change in Mental Status No Sepsis Action Taken by Nursing No Action Required Laboratory Data Result diagrams: 06/12/21 05:36 06/13/21 07:02 Lab Results 06/11/21 06/11/21 06/11/21 Range/Units 05:28 05:28 05:28 WBC 7.71 (4.8-10.8) K/uL RBC 3.19 L (4.7-6.1) M/uL Hgb 10.3 L (14.0-18.0) g/dL Hct 30.4 L (42-52) % MCV 95.3 (80-100) fL MCH 32.3 (25-34) pg MCHC 33.9 (32-36) g/dL RDW Std Deviation 46.3 (36.4-46.3) fL RDW Coeff of Jaime 13.2 (11.5-14.5) % Plt Count 177 (130-400) K/uL MPV 9.6 (7.4-10.4) fL Immature Gran % (Auto) 0.1 % Neut % (Auto) 65.4 % Lymph % (Auto) 13.1 % [place] % (Auto) 17.3 % Eos % (Auto) 3.6 % Baso % (Auto) 0.5 % Neut # (Auto) 5.04 (1.4-6.5) K/uL Lymph # (Auto) 1.01 L (1.2-3.4) K/uL [place] # (Auto) 1.33 H (0.11-0.59) K/uL Eos # (Auto) 0.28 (0-0.5) K/uL Baso # (Auto) 0.04 (0-0.2) K/uL Immature Gran # (Auto) 0.01 (0.00-0.02) K/uL PT 12.9 H (9.0-12.0) Seconds INR 1.3 H (0.9-1.1) APTT 27.6 (21.0-31.0) Seconds PTT Ratio 1.0 Sodium 140 (136-145) mmol/L Potassium 4.9 (3.5-5.1) mmol/L Chloride 113 H (98-107) mmol/L Carbon Dioxide 19 L (21-32) mmol/L Anion Gap 8.0 (3-11) BUN 51 H (7-18) mg/dl Creatinine 3.30 H (0.6-1.4) mg/dl Est Cr Clr Drug Dosing 18.0 ml/min Est GFR ( Amer) 18.7 ml/min Est GFR (Non-Af Amer) 16.1 ml/min BUN/Creatinine Ratio 15.4 (10-20) Glucose 145 H (70-99) mg/dl Calcium 8.4 L (8.5-10.1) mg/dl Magnesium (1.8-2.4) mg/dl Total Bilirubin 0.3 (0.2-1) mg/dl AST 20 (15-37) U/L ALT 17 (12-78) U/L Alkaline Phosphatase 83 (45-117) U/L Troponin I 0.364 H* (0-0.045) ng/ml Total Protein 6.2 L (6.4-8.2) gm/dl Albumin 2.6 L (3.4-5.0) gm/dl Globulin 3.6 (2.5-4.0) gm/dl Albumin/Globulin Ratio 0.7 L (0.9-2) Lipase 195 (73-393) U/L COVID-19 Eval Order SARS-CoV-2 (PCR) (Negative) 06/11/21 06/11/21 06/11/21 Range/Units 05:30 06:28 06:28 WBC (4.8-10.8) K/uL RBC (4.7-6.1) M/uL Hgb (14.0-18.0) g/dL Hct (42-52) % MCV (80-100) fL MCH (25-34) pg MCHC (32-36) g/dL RDW Std Deviation (36.4-46.3) fL RDW Coeff of Jaime (11.5-14.5) % Plt Count (130-400) K/uL MPV (7.4-10.4) fL Immature Gran % (Auto) % Neut % (Auto) % Lymph % (Auto) % [place] % (Auto) % Eos % (Auto) % Baso % (Auto) % Neut # (Auto) (1.4-6.5) K/uL Lymph # (Auto) (1.2-3.4) K/uL [place] # (Auto) (0.11-0.59) K/uL Eos # (Auto) (0-0.5) K/uL Baso # (Auto) (0-0.2) K/uL Immature Gran # (Auto) (0.00-0.02) K/uL PT (9.0-12.0) Seconds INR (0.9-1.1) APTT (21.0-31.0) Seconds PTT Ratio Sodium (136-145) mmol/L Potassium (3.5-5.1) mmol/L Chloride (98-107) mmol/L Carbon Dioxide (21-32) mmol/L Anion Gap (3-11) BUN (7-18) mg/dl Creatinine (0.6-1.4) mg/dl Est Cr Clr Drug Dosing ml/min Est GFR ( Amer) ml/min Est GFR (Non-Af Amer) ml/min BUN/Creatinine Ratio (10-20) Glucose (70-99) mg/dl Calcium (8.5-10.1) mg/dl Magnesium 1.8 (1.8-2.4) mg/dl Total Bilirubin (0.2-1) mg/dl AST (15-37) U/L ALT (12-78) U/L Alkaline Phosphatase (45-117) U/L Troponin I (0-0.045) ng/ml Total Protein (6.4-8.2) gm/dl Albumin (3.4-5.0) gm/dl Globulin (2.5-4.0) gm/dl Albumin/Globulin Ratio (0.9-2) Lipase (73-393) U/L COVID-19 Eval Order Covid19 at [facility] SARS-CoV-2 (PCR) NEGATIVE (Negative) Administered Medications Discontinued Medications Adenosine (Adenosine Iv Soln 3 Mg/Ml 2 Ml Vial) Confirm Administered Dose 12 mg IV .STK-MED ONE Stop: 06/11/21 09:27 Last Admin: 06/11/21 09:49 Dose: 6 mg Documented by: [id number] Adenosine (Adenosine Iv Soln 3 Mg/Ml 2 Ml Vial) Confirm Administered Dose 18 mg IV .STK-MED ONE Stop: 06/11/21 09:28 Last Admin: 06/11/21 09:50 Dose: Not Given Documented by: [id number] Adenosine (Adenosine Iv Soln 3 Mg/Ml 2 Ml Vial) 6 mg IV TODAY@1000 TRISTAN Stop: 06/11/21 10:01 Last Admin: 06/11/21 14:50 Dose: Not Given Documented by: [id number] Amiodarone HCl (Amiodarone 200 Mg Tab) 200 mg PO [facility] Stop: 07/12/21 11:14 Last Admin: 06/13/21 09:03 Dose: 200 mg Documented by: [id number] Admin: 06/12/21 11:56 Dose: 200 mg Documented by: [id number] Amlodipine Besylate (Amlodipine Besylate 5 Mg Tab) 5 mg PO [facility] Stop: 07/12/21 08:59 Last Admin: 06/13/21 08:15 Dose: 5 mg Documented by: [id number] Admin: 06/12/21 09:22 Dose: 5 mg Documented by: [id number] Aspirin (Aspirin Chew 324 Mg) 324 mg PO NOW STA Stop: 06/11/21 06:22 Last Admin: 06/11/21 06:36 Dose: 324 mg Documented by: [id number] Aspirin (Aspirin 81 Mg Ectab) 81 mg PO [facility] Stop: 07/12/21 08:59 Last Admin: 06/13/21 08:15 Dose: 81 mg Documented by: [id number] Admin: 06/12/21 08:20 Dose: 81 mg Documented by: [id number] Atorvastatin Calcium (Atorvastatin 40 Mg Tab) 80 mg PO [facility] Stop: 07/11/21 08:59 Last Admin: 06/13/21 08:15 Dose: 80 mg Documented by: [id number] Admin: 06/12/21 08:19 Dose: 80 mg Documented by: [id number] Admin: 06/11/21 10:41 Dose: 80 mg Documented by: [id number] Enoxaparin Sodium (Enoxaparin 80 Mg/0.8 Ml Syr) 80 mg SQ NOW ONE Stop: 06/12/21 15:00 Last Admin: 06/12/21 16:06 Dose: 80 mg Documented by: [id number] Enoxaparin Sodium (Enoxaparin Inj 120 Mg/0.8 Ml Syr) 120 mg SQ DAILY [facility] Stop: 07/13/21 09:29 Last Admin: 06/13/21 11:37 Dose: 120 mg Documented by: [id number] Sodium Chloride (Nss 1000ml) 500 mls @ 999 mls/hr IV .Q31M ONE Stop: 06/11/21 06:01 Last Infusion: 06/11/21 06:11 Dose: 0 mls/hr Documented by: [id number] Admin: 06/11/21 05:40 Dose: 999 mls/hr Documented by: [id number] Sodium Chloride (Nss 1000ml) 1,000 mls @ 80 mls/hr IV .[id number] ONE Stop: 06/11/21 19:35 Last Infusion: 06/11/21 20:38 Dose: 0 mls/hr Documented by: [id number] Infusion: 06/11/21 10:04 Dose: 80 mls/hr Documented by: [id number] Infusion: 06/11/21 07:50 Dose: 0 mls/hr Documented by: [id number] Admin: 06/11/21 07:35 Dose: 80 mls/hr Documented by: [id number] Magnesium Sulfate/Dextrose (Magnesium Sulfate / D5w) 1 gm in 100 mls @ 50 mls/ hr IV ONE ONE Stop: 06/11/21 09:14 Last Infusion: 06/11/21 10:04 Dose: 0 mls/hr Documented by: [id number] Admin: 06/11/21 07:34 Dose: 50 mls/hr Documented by: [id number] Amiodarone HCl/Dextrose (Nexterone / D5w) 150 mg in 100 mls @ 600 mls/hr IV NOW STA Stop: 06/11/21 17:02 Last Infusion: 06/11/21 18:11 Dose: 0 mls/hr Documented by: [id number] Cosigned by: [id number] Admin: 06/11/21 17:48 Dose: 600 mls/hr Documented by: [id number] Cosigned by: [id number] Amiodarone HCl/Dextrose (Nexterone / D5w) 360 mg in 200 mls @ 33.333 mls/hr IV ONE ONE Stop: 06/11/21 23:02 Last Infusion: 06/12/21 00:32 Dose: 0 mls/hr Documented by: [id number] Cosigned by: [id number] Infusion: 06/11/21 18:49 Dose: 33.3 mls/hr Documented by: [id number] Cosigned by: [id number] Admin: 06/11/21 18:08 Dose: 33.3 mls/hr Documented by: [id number] Cosigned by: [id number] Amiodarone HCl/Dextrose (Nexterone / D5w) 360 mg in 200 mls @ 16.667 mls/hr IV .Q12H TRIST[facility] Stop: 07/11/21 22:59 Last Admin: 06/12/21 11:26 Dose: Not Given Documented by: [id number] Infusion: 06/12/21 11:21 Dose: 0 mg/min, 0 mls/hr Documented by: [id number] Cosigned by: [id number] Infusion: 06/12/21 07:07 Dose: 0.5 mg/min, 16.7 mls/hr Documented by: [id number] Cosigned by: [id number] Admin: 06/12/21 00:05 Dose: 0.5 mg/min, 16.7 mls/hr Documented by: [id number] Cosigned by: [id number] Insulin Aspart (Insulin Aspart 100 Units/Ml 3 Ml Pen) 0 units SC ACHS TRISTAN Stop: 07/11/21 08:59 Last Admin: 06/13/21 12:08 Dose: 3 units Documented by: [id number] Cosigned by: [id number] Admin: 06/13/21 08:17 Dose: 4 units Documented by: [id number] Cosigned by: [id number] Admin: 06/12/21 20:34 Dose: 1 units Documented by: [id number] Cosigned by: [id number] Admin: 06/12/21 17:31 Dose: 2 units Documented by: [id number] Cosigned by: [id number] Admin: 06/12/21 12:47 Dose: 3 units Documented by: [id number] Cosigned by: [id number] Admin: 06/12/21 08:22 Dose: 4 units Documented by: [id number] Cosigned by: [id number] Admin: 06/11/21 21:14 Dose: Not Given Documented by: [id number] Admin: 06/11/21 17:52 Dose: 3 units Documented by: [id number] Cosigned by: [id number] Admin: 06/11/21 12:18 Dose: 2 units Documented by: [id number] Cosigned by: [id number] Admin: 06/11/21 10:05 Dose: Not Given Documented by: [id number] Cosigned by: [id number] Metoprolol Succinate (Metoprolol Succ 50mg Ext Rel Tab) 50 mg PO BID [facility] Stop: 07/11/21 08:59 Last Admin: 06/13/21 08:15 Dose: 50 mg Documented by: [id number] Admin: 06/12/21 20:34 Dose: 50 mg Documented by: [id number] Admin: 06/12/21 08:21 Dose: 50 mg Documented by: [id number] Admin: 06/11/21 21:18 Dose: 50 mg Documented by: [id number] Admin: 06/11/21 10:41 Dose: 50 mg Documented by: [id number] Metoprolol Tartrate (Metoprolol Tartrate 1 Mg/Ml Vial) 2.5 mg IV NOW STA Stop: 06/11/21 06:30 Last Admin: 06/11/21 06:37 Dose: 2.5 mg Documented by: [id number] Miscellaneous (Dutasteride: Order Awaiting Action) 1 ea N/A QS [facility] Stop: 07/11/21 15:59 Last Admin: 06/13/21 13:22 Dose: Not Given Documented by: [id number] Admin: 06/13/21 08:57 Dose: Not Given Documented by: [id number] Admin: 06/13/21 00:27 Dose: Not Given Documented by: [id number] Admin: 06/12/21 17:22 Dose: Not Given Documented by: [id number] Admin: 06/12/21 07:19 Dose: Not Given Documented by: [id number] Admin: 06/12/21 00:04 Dose: Not Given Documented by: [id number] Admin: 06/11/21 18:21 Dose: Not Given Documented by: [id number] Morphine Sulfate (Morphine Sulfate 4 Mg/Ml 1 Ml Carp\Vial) 4 mg IV NOW STA Stop: 06/11/21 05:32 Last Admin: 06/11/21 05:44 Dose: Not Given Documented by: [id number] Morphine Sulfate (Morphine Sulfate 2 Mg/Ml Carp) 2 mg IV NOW STA Stop: 06/11/21 05:33 Last Admin: 06/11/21 05:39 Dose: 2 mg Documented by: [id number] Nitroglycerin (Nitroglycerin Sl 0.4 Mg/Tab Tab) 0.4 mg SL NOW STA Stop: 06/11/21 06:59 Last Admin: 06/11/21 07:33 Dose: 0.4 mg Documented by: [id number] Ondansetron HCl (Ondansetron Inj 2 Mg/Ml 2 Ml Vial) 4 mg IV NOW STA Stop: 06/11/21 05:33 Last Admin: 06/11/21 05:39 Dose: 4 mg Documented by: [id number] Pantoprazole Sodium (Pantoprazole 40 Mg Tab) 40 mg PO [facility] Stop: 07/11/21 20:59 Last Admin: 06/12/21 20:34 Dose: 40 mg Documented by: [id number] Admin: 06/11/21 21:18 Dose: 40 mg Documented by: [id number] Warfarin Sodium (Warfarin Sod 3 Mg Tab) 3 mg PO DAILY@1600 [facility] Stop: 07/12/21 15:59 Last Admin: 06/12/21 16:05 Dose: 3 mg Documented by: [id number] Discharge Plan Visit Data Chief Complaint: Chest Pain Stated Complaint: Chest Pain ED Provider: Efraín Hayes Discharge Problem: Chest pain Patient Disposition: Admitted As Inpatient Condition: Fair Discharge Instructions Interventions: ED Discharge Assessment Last Done: 06/11/21 07:58 Discharge Problem: Chest pain Qualifiers: Chest pain type: other chest pain Qualified Code(s): R07.89 - Other chest pain
[2021-06-11 05:35] LABS: Basophils # (auto) 0.04 K/uL (0-0.2); Basophils % (auto) 0.5 %; Eosinophils # (auto) 0.28 K/uL (0-0.5); Eosinophils % (auto) 3.6 %; Hematocrit (blood only) 30.4 % (42-52); Hemoglobin 10.3 g/dL (14.0-18.0); Immature Granulocytes # (auto) 0.01 K/uL (0.00-0.02); Immature Granulocytes % (auto) 0.1 %; Lymphocytes # (auto) 1.01 K/uL (1.2-3.4); Lymphocytes % (auto) 13.1 %; Mean Corpuscular Hemoglobin 32.3 pg (25-34); Mean Corpuscular Hgb Conc 33.9 g/dL (32-36); Mean Corpuscular Volume 95.3 fL (80-100); Mean Platelet Volume 9.6 fL (7.4-10.4); Monocytes # (auto) 1.33 K/uL (0.11-0.59); Monocytes % (auto) 17.3 %; Neutrophils # (auto) 5.04 K/uL (1.4-6.5); Neutrophils % (auto) 65.4 %; Platelet Count 177 K/uL (130-400); RDW Coefficient of Variation 13.2 % (11.5-14.5); RDW Standard Deviation 46.3 fL (36.4-46.3); Red Blood Count 3.19 M/uL (4.7-6.1); White Blood Count 7.71 K/uL (4.8-10.8)
[2021-06-11 05:47] LABS: INR 1.3 (0.9-1.1); Partial Thromboplastin Time 27.6 Seconds (21.0-31.0); Prothrombin Time 12.9 Seconds (9.0-12.0)
[2021-06-11 05:55] LABS: Albumin Level 2.6 gm/dl (3.4-5.0); BUN Creatinine Ratio 15.4 (10-20); Calcium 8.4 mg/dl (8.5-10.1); Est GFR (African American) 18.7 ml/min; Est GFR (Non-African American) 16.1 ml/min; Potassium 4.9 mmol/L (3.5-5.1)
[2021-06-11 06:06] LABS: Albumin Globulin Ratio 0.7 (0.9-2); Bilirubin,Total 0.3 mg/dl (0.2-1); Globulin 3.6 gm/dl (2.5-4.0); Total Protein 6.2 gm/dl (6.4-8.2); Troponin I 0.364 ng/ml (0-0.045)
[2021-06-11] MEDS ORDERED: ASPIRIN CHEW 324 MG PO STA (06:21)
[2021-06-11] MEDS ORDERED: METOPROLOL TARTRATE 1 MG/ML VIAL IV STA (06:29)
[2021-06-11] MEDS ORDERED: NITROGLYCERIN SL 0.4 MG/TAB TAB SL STA (06:58)
--- NOTE | 2021-06-11 06:59 | History & Physical Report ---
Date of Service June 11, 2021 Assessment & Plan (1) Chest pain: Plan: With troponin elevation Possible non-STEMI hx CAD status post CABG SSS sp recent PPM on Coumadin, INR subtherapeutic, Coumadin to be restarted today postprocedure hypertension, stable hyperlipidemia on statin Rx ARF on CRI DM2 on oral medications, well-controlled as of recent hemoglobin A1c of 6.06 June 2021 chronic anemia, hemoglobin at baseline OBS PCU Nitro trial Trend troponin Aspirin for CAD prevention until ACS ruled out Continue beta-marcus, statin medications Trend troponin, IV heparin if with progression Cardiology consult Re: Chest pain, troponin elevation N.p.o. until patient seen by cardiology in anticipation of any procedure Baseline UA, monitor creatinine response to IVF, hold lisinopril until creatinine back to baseline Renal ultrasound, nephrology consult if without improvement in kidney function ISS BG goal 1 10-1 40 DVT prophylaxis. Coumadin INR goal between 2 and 3 if no procedure contemplated; IV Heparin if with subsequent troponin elevation if Coumadin to be held indefinitely while INR subtherapeutic Full code Patient's [id number] requesting updates from providers. Ms. Ocasio Esperanza, contact #[phone]. Text document was generated using [employer] voice recognition software. It may contain grammatical or spelling errors. Kindly contact undersigned for clarification of any documentation item in question. History of Present Illness Chief Complaint: Chest pain Primary Care Provider: Eulogio Lugo DO History obtained from patient, family, and records. Medical history significant for CAD status post CABG, SSS sp recent PPM on Coumadin, hypertension, hyperlipidemia, CRI (baseline creatinine 2.9 ), chronic anemia (baseline hemoglobin 10-11 ), BPH, DM2 on oral medications. Last confinement June 2019 for strokelike symptoms. Patient underwent elective dual-chamber PPM placement for tachybradycardia syndrome yesterday at [facility]. Patient felt well after procedure although he went to bed early last night. Patient woke up early this morning with left-sided chest pain going to the left arm. No shortness of breath, no cough symptoms. Nonpleuritic. Some nausea symptoms when he stood up. Patient felt woozy. Does not recall having same chest pain before. Patient given aspirin and morphine upon arrival at the ER. Patient still with discomfort at the ER. Medical History as above Surgical History : PPM, cataract surgery, prostate removal, CABG Family History : Heart disease Personal/Social history : Non-smoker, occasional EtOH intake, practicing commercial management accountant Allergies Allergy/AdvReac Type Severity Reaction Status Date / Time No Known Allergies Allergy Unverified 06/11/21 07:13 Home Medications Medication Instructions Recorded Confirmed Type atorvastatin 80 mg tablet (Lipitor) 80 mg PO QAM 06/16/19 06/11/21 History cholecalciferol (vitamin D3) 25 3,000 unit PO QAM 06/16/19 06/11/21 History mcg (1,000 unit) chewable tablet (Vitamin D3) lisinopril 5 mg tablet (Zestril) 5 mg PO QAM 06/16/19 06/11/21 History magnesium oxide 400 mg PO QAM 06/16/19 06/11/21 History metoprolol succinate 50 mg 50 mg PO BID 06/16/19 06/11/21 History tablet,extended release 24 hr (Toprol XL) nitroglycerin 0.4 mg sublingual 0.4 mg SUBLINGUAL UD 06/16/19 06/11/21 History tablet (Nitrostat) pantoprazole 40 mg tablet,delayed 40 mg PO DAILY 06/16/19 06/11/21 History release (Protonix) diphenhydramine 25 1 tab PO HS 10/14/19 06/11/21 History mg-acetaminophen 500 mg tablet (Tylenol PM Extra Strength) dutasteride 0.5 mg capsule 0.5 mg PO QAM 07/13/20 06/11/21 History (Avodart) glipizide 2.5 mg tablet, extended 2.5 mg PO QAM 01/19/21 06/11/21 History release 24 hr (Glucotrol XL) warfarin 3 mg tablet (Jantoven) 3 mg PO QAM 03/28/21 06/11/21 History ascorbic acid (vitamin C) 500 mg 2,000 mg PO DAILY 06/10/21 06/11/21 History chewable tablet warfarin 3 mg tablet 1.5 mg PO DAILY 06/11/21 06/11/21 History Past Med/Surg History Medical History Benign localized hyperplasia of prostate with urinary obstruction BPH (benign prostatic hyperplasia) CAD (coronary artery disease) Chronic prostatitis CKD (chronic kidney disease) stage 4, GFR 15-29 ml/min Diabetes mellitus History of supraventricular tachycardia HLD (hyperlipidemia) HTN (hypertension) Hyperparathyroidism PAF (paroxysmal atrial fibrillation) SVT (supraventricular tachycardia) T2DM (type 2 diabetes mellitus) UTI (urinary tract infection), bacterial Surgical History History of cataract extraction History of prostate surgery Hx of CABG hx of cabg x 3 2002 Family History Father , 72 Cancer Coronary heart disease Social History Smoking Status: Never smoker Tobacco Type: Pipe Hx Alcohol Use: Yes Alcohol type: beer Alcohol type Comment: wednesday will have 1-2 beverages Hx Substance Use: No Preferred Language: Thai Communication Ability: Effective Level Designer Required: No Beliefs That Will Affect Care: None marital status: Current Living Situation: Alone current occupational status: employed Feels Safe at Home: Yes Assistive Devices: Glasses Review of Systems Review of Systems: As per HPI, all 10 systems reviewed, all other ROS negative Physical Exam Physical Exam: GENERAL: Comfortable, slightly hard of hearing, no respiratory distress SKIN: Pallor,, warm HEENT: Alopecia, pale palpebral conjunctivae, no ptosis, dry buccal mucosa NECK : Supple, no tenderness CHEST : CTA, minimal tenderness over left PPM site HEART : Tachycardic, no obvious murmurs ABDOMEN: Some distention, nontender EXTREMITIES : No LE swelling/tenderness, no other conspicuous deformities noted NEUROLOGIC : Coherent, no facial asymmetry, mild hearing impairment, no other gross focality Results & Data Results & Data ([facility]) Vital Signs (Past 12 Hours) Vital Signs Temp Pulse Resp BP Pulse Ox 06/11/21 06:37 121 H 130/80 06/11/21 06:30 123 H 20 130/80 96 06/11/21 06:29 97 06/11/21 06:00 124 H 12 118/75 98 06/11/21 05:32 96 06/11/21 05:26 37.0 C 129 H 24 117/75 98 Laboratory Results Laboratory Results WBC 7.71 K/uL (4.8-10.8) 06/11/21 05:28 RBC 3.19 M/uL (4.7-6.1) L 06/11/21 05:28 Hgb 10.3 g/dL (14.0-18.0) L 06/11/21 05:28 Hct 30.4 % (42-52) L 06/11/21 05:28 MCV 95.3 fL (80-100) 06/11/21 05:28 MCH 32.3 pg (25-34) 06/11/21 05:28 MCHC 33.9 g/dL (32-36) 06/11/21 05:28 RDW Std Deviation 46.3 fL (36.4-46.3) 06/11/21 05:28 RDW Coeff of Jaime 13.2 % (11.5-14.5) 06/11/21 05:28 Plt Count 177 K/uL (130-400) 06/11/21 05:28 MPV 9.6 fL (7.4-10.4) 06/11/21 05:28 Immature Gran % (Auto) 0.1 % 06/11/21 05:28 Neut % (Auto) 65.4 % 06/11/21 05:28 Lymph % (Auto) 13.1 % 06/11/21 05:28 [place] % (Auto) 17.3 % 06/11/21 05:28 Eos % (Auto) 3.6 % 06/11/21 05:28 Baso % (Auto) 0.5 % 06/11/21 05:28 Neut # (Auto) 5.04 K/uL (1.4-6.5) 06/11/21 05:28 Lymph # (Auto) 1.01 K/uL (1.2-3.4) L 06/11/21 05:28 [place] # (Auto) 1.33 K/uL (0.11-0.59) H 06/11/21 05:28 Eos # (Auto) 0.28 K/uL (0-0.5) 06/11/21 05:28 Baso # (Auto) 0.04 K/uL (0-0.2) 06/11/21 05:28 Immature Gran # (Auto) 0.01 K/uL (0.00-0.02) 06/11/21 05:28 PT 12.9 Seconds (9.0-12.0) H 06/11/21 05:28 INR 1.3 (0.9-1.1) H 06/11/21 05:28 APTT 27.6 Seconds (21.0-31.0) 06/11/21 05:28 PTT Ratio 1.0 06/11/21 05:28 Sodium 140 mmol/L (136-145) 06/11/21 05:28 Potassium 4.9 mmol/L (3.5-5.1) 06/11/21 05:28 Chloride 113 mmol/L (98-107) H 06/11/21 05:28 Carbon Dioxide 19 mmol/L (21-32) L 06/11/21 05:28 Anion Gap 8.0 (3-11) 06/11/21 05:28 BUN 51 mg/dl (7-18) H 06/11/21 05:28 Creatinine 3.30 mg/dl (0.6-1.4) H 06/11/21 05:28 Est Cr Clr Drug Dosing 18.0 ml/min 06/11/21 05:28 Est GFR ( Amer) 18.7 ml/min 06/11/21 05:28 Est GFR (Non-Af Amer) 16.1 ml/min 06/11/21 05:28 BUN/Creatinine Ratio 15.4 (10-20) 06/11/21 05:28 Glucose 145 mg/dl (70-99) H 06/11/21 05:28 Calcium 8.4 mg/dl (8.5-10.1) L 06/11/21 05:28 Magnesium 1.8 mg/dl (1.8-2.4) 06/11/21 05:30 Total Bilirubin 0.3 mg/dl (0.2-1) 06/11/21 05:28 AST 20 U/L (15-37) 06/11/21 05:28 ALT 17 U/L (12-78) 06/11/21 05:28 Alkaline Phosphatase 83 U/L (45-117) 06/11/21 05:28 Troponin I 0.364 ng/ml (0-0.045) H* 06/11/21 05:28 Total Protein 6.2 gm/dl (6.4-8.2) L 06/11/21 05:28 Albumin 2.6 gm/dl (3.4-5.0) L 06/11/21 05:28 Globulin 3.6 gm/dl (2.5-4.0) 06/11/21 05:28 Albumin/Globulin Ratio 0.7 (0.9-2) L 06/11/21 05:28 Lipase 195 U/L (73-393) 06/11/21 05:28 COVID-19 Eval Order Covid19 at [facility] 06/11/21 06:28 Diagnostic Findings Chest x-ray as per my interpretation: Cardiomegaly, elevated right hemidiaphragm, PPM EKG as per my interpretation : Rate 130, junctional rhythm, normal axis no ischemia (1) Chest pain Chest pain type: other chest pain Qualified Code(s): R07.89 - Other chest pain
[2021-06-11] MEDS ORDERED: SODIUM CHLORIDE 0.9% 1000ML 1,000 ML IV ONE (07:06)
[2021-06-11] MEDS ORDERED: ACETAMINOPHEN 325 MG TAB PO PRN (07:15)
[2021-06-11] MEDS ORDERED: HYDROmorphone INJ 0.5 MG/0.5 ML SYR IV PRN (07:15)
[2021-06-11] MEDS ORDERED: traMADol HCL 50 MG TABLET PO PRN (07:15)
[2021-06-11] MEDS ORDERED: PROMETHAZINE HCL 6.25 MG in SODIUM CHLORIDE 0.9% 50 ML IV PRN (07:15)
[2021-06-11] MEDS ORDERED: MAGNESIUM SULFATE / D5W 1 GM/100 ML BAG IV ONE (07:15)
[2021-06-11] MEDS ORDERED: NITROGLYCERIN SL 0.4 MG/TAB TAB SL PRN (07:15)
[2021-06-11] MEDS ORDERED: GLUCOSE 40% GEL 15 GM TUBE PO PRN (08:45)
[2021-06-11] MEDS ORDERED: GLUCAGON FOR INJ 1 MG VIAL SQ PRN (08:45)
[2021-06-11] MEDS ORDERED: GLUCOSE 10 TABS/TUBE PO PRN (08:45)
[2021-06-11] MEDS ORDERED: CARBOHYDRATES FOR HYPOGLYCEMIA PO PRN (08:45)
[2021-06-11] MEDS ORDERED: DEXTROSE 50% 50 ML SYRINGE IV PRN (08:45)
--- NOTE | 2021-06-11 08:54 | XRay Report ---
XR chest 1V portable CLINICAL HISTORY: Chest Pain. COMPARISON STUDY: 06/10/2021 TECHNIQUE: 1 view of the chest FINDINGS: Single frontal view of the chest demonstrates the heart size to be within normal limits status post p revious cardiothoracic surgery. Permanent cardiac pacer is also again seen. There is a decreased insp iratory effort with elevation of the hemidiaphragms and crowding of the bronchovascular markings at t he lung bases and centrally. The lungs are clear of alveolar opacities. There is no evidence for pleu ral effusion. There is no evidence for vascular congestion. There is no acute osseous pathology. IMPRESSION: There is a decreased inspiratory effort with otherwise no acute chest disease. ACT 112: Negative or not required by law. Electronically signed by: Vignesh Lerma M.D. 06/11/2021 8:53 AM
[2021-06-11] MEDS: METOPROLOL SUCC 50MG EXT REL TAB PO SCH ×4 (09:19→21:18)
[2021-06-11] MEDS ORDERED: ADENOSINE IV SOLN 3 MG/ML 2 ML VIAL IV ONE ×2 (09:26→09:27)
--- NOTE | 2021-06-11 09:47 | Cardiology Consultation ---
Date of Consultation June 11, 2021 Assessment & Plan (1) PAT (paroxysmal atrial tachycardia): (2) PAF (paroxysmal atrial fibrillation): (3) CKD (chronic kidney disease) stage 4, GFR 15-29 ml/min: Creatinine elevated above baseline on presentation we will hold lisinopril (4) Hx of CAB (5) Elevated troponin: Secondary to demand issues of elevated heart rate acute on chronic renal insufficiency Patient is an 86-year-old male with complex constellation of issues as outlined. Longstanding chronic stable ischemic heart disease with preserved LV systolic function. Recent past difficulties with paroxysmal atrial arrhythmias and past TIA on chronic anticoagulation. Patient underwent dual-chamber pacemaker insertion day prior to presentation for tachybradycardia syndrome. Patient presents this admission having awakened from sleep with heart pounding and chest tightness. Patient once again in narrow complex tachycardia on presentation with rapid ventricular response Patient converted with 6 mg IV adenosine on arrival to telemetry floor Plan: We will ask EP to interrogate pacemaker assess whether current rhythm represents SVT versus atypical atrial flutter. EKG ordered post cardiovert Current medications will be continued but may use this opportunity of hospitalization to initiate antiarrhythmic therapy given recent multiple presentations with atrial tachycardias Other issues as above troponin likely secondary to demand issues of rapid ventricular response. Findings and EKGs do not suggest acute coronary syndrome Creatinine elevated above baseline, lisinopril on hold with gentle hydration ordered for today. History of Present Illness Reason for Consultation: Tachycardia, elevated troponin Requesting Physician: Dr Castro, Dr Park Attending Physician: Kwame Souza MD History of Present Illness Patient is a complex 86-year-old male with ongoing issues which include 1.Coronary artery disease status post CABG x3 in 2002 with unknown grafts. 2.Paroxysmal atrial fibrillation, broken with metoprolol. 3.Paroxysmal atrial fibrillation broken with adenosine and carotid massage in the past. 4.SVT broken with adenosine. 5.Hypertension. 6.Diabetes. 7.Hyperlipidemia. 8.Chronic kidney disease, Stage IV 9. Tachybradycardia syndrome status post pacemaker insertion 06/10/[address] [employer] [place] XT DR MRI W1 01, dual-chamber device Patient's had multiple recent hospital presentations with paroxysmal atrial arrhythmias and issues with tachybradycardia syndrome and underwent dual-chamber pacemaker insertion day prior. Last evening he awakened from sleep with sensation of heart pounding and chest tightness as well as tenderness at pacemaker site due to concern regarding symptoms he presented to the emergency room for evaluation. EKG on presentation demonstrated narrow complex tachycardia with laboratory studies also reflecting troponin elevation and chronic renal insufficiency. Symptoms were resolving at time of presentation he was referred for inpatient management. On arrival to the floor he remained in atrial tachycardia and received adenosine 6 mg IV with conversion to sinus rhythm Currently is comfortable without complaints surgical incision healing well. No pleuritic discomfort on deep inspiration no respiratory distress No fevers or chills no cough or shortness of breath Allergies Allergy/AdvReac Type Severity Reaction Status Date / Time No Known Allergies Allergy Unverified 06/11/21 07:13 Home Medications Medication Instructions Recorded Confirmed Type atorvastatin 80 mg tablet (Lipitor) 80 mg PO QAM 06/16/19 06/11/21 History cholecalciferol (vitamin D3) 25 3,000 unit PO QAM 06/16/19 06/11/21 History mcg (1,000 unit) chewable tablet (Vitamin D3) lisinopril 5 mg tablet (Zestril) 5 mg PO QAM 06/16/19 06/11/21 History magnesium oxide 400 mg PO QAM 06/16/19 06/11/21 History metoprolol succinate 50 mg 50 mg PO BID 06/16/19 06/11/21 History tablet,extended release 24 hr (Toprol XL) nitroglycerin 0.4 mg sublingual 0.4 mg SUBLINGUAL UD 06/16/19 06/11/21 History tablet (Nitrostat) pantoprazole 40 mg tablet,delayed 40 mg PO DAILY 06/16/19 06/11/21 History release (Protonix) diphenhydramine 25 1 tab PO HS 10/14/19 06/11/21 History mg-acetaminophen 500 mg tablet (Tylenol PM Extra Strength) dutasteride 0.5 mg capsule 0.5 mg PO QAM 07/13/20 06/11/21 History (Avodart) glipizide 2.5 mg tablet, extended 2.5 mg PO QAM 01/19/21 06/11/21 History release 24 hr (Glucotrol XL) warfarin 3 mg tablet (Jantoven) 3 mg PO QAM 03/28/21 06/11/21 History ascorbic acid (vitamin C) 500 mg 2,000 mg PO DAILY 06/10/21 06/11/21 History chewable tablet warfarin 3 mg tablet 1.5 mg PO DAILY 06/11/21 06/11/21 History amiodarone 200 mg tablet 200 mg PO QAM #30 tab 06/12/21 Rx amlodipine 5 mg tablet (Norvasc) 5 mg PO QAM #30 tab 06/12/21 Rx aspirin 81 mg tablet,delayed 81 mg PO QAM #30 tab 06/12/21 Rx release Patient History Medical History Benign localized hyperplasia of prostate with urinary obstruction BPH (benign prostatic hyperplasia) CAD (coronary artery disease) Chronic prostatitis CKD (chronic kidney disease) stage 4, GFR 15-29 ml/min Diabetes mellitus History of supraventricular tachycardia HLD (hyperlipidemia) HTN (hypertension) Hyperparathyroidism PAF (paroxysmal atrial fibrillation) SVT (supraventricular tachycardia) T2DM (type 2 diabetes mellitus) UTI (urinary tract infection), bacterial Surgical History History of cataract extraction History of prostate surgery Hx of CABG hx of cabg x 3 2002 Family History Father , 72 Cancer Coronary heart disease Social History Smoking Status: Former smoker Tobacco Type: Pipe Second Hand Exposure: No; Hx Alcohol Use: Yes Alcohol type: beer Alcohol type Comment: wednesday will have 1-2 beverages Hx Substance Use: No Preferred Language: Dutch Communication Ability: Effective Hopper Filler Required: No Beliefs That Will Affect Care: None marital status: Current Living Situation: Alone current occupational status: employed How many Children do You have: 1 Feels Safe at Home: Yes Assistive Devices: Glasses Review of Systems Review of Systems: All systems reviewed & are unremarkable except as noted in HPI & below Physical Exam Constitutional: well developed and well nourished; no acute distress Eyes: PERRL, conjunctivae normal, anicteric sclerae ENMT: external ear and nose normal, oropharynx normal Neck: trachea midline, no thyromegaly Respiratory: normal respiratory effort, lungs clear to auscultation Cardiovascular: Rate/Rhythm: regular rate and regular rhythm Heart Sounds: normal S1 and normal S2; no gallop and no murmur Palpation: normal PMI Vessels: normal carotid upstroke and radial pulses present; no JVD and no carotid bruit Extremities: no edema Chest (Breasts): Chest: + pacemaker (Recent surgical site intact without hematoma or erythema) Gastrointestinal (Abdomen): normal bowel sounds, soft, nontender, no hepatosplenomegaly Musculoskeletal: no cyanosis or clubbing, extremities motor strength 5/5 Skin: no rashes, warm and dry Neurologic: PERRL, EOMI, accommodation nl, no face palsy, no dysarthria Psychiatric: A+Ox3, euthymic affect Results & Data ([facility]) Vital Signs (Past 12 Hours) Vital Signs Temp Pulse Pulse Resp BP BP Pulse Ox 06/11/21 08:47 36.6 C 123 H 20 123/75 98 06/11/21 07:25 120 H 18 92/64 L 96 06/11/21 06:37 121 H 130/80 06/11/21 06:30 123 H 20 130/80 96 06/11/21 06:29 97 06/11/21 06:00 124 H 12 118/75 98 06/11/21 05:32 96 06/11/21 05:26 37.0 C 129 H 24 117/75 98 Laboratory Results Laboratory Results - last 24 hr 06/11/21 06/11/21 06/11/21 05:28 05:28 05:28 WBC 7.71 RBC 3.19 L Hgb 10.3 L Hct 30.4 L MCV 95.3 MCH 32.3 MCHC 33.9 RDW Std Deviation 46.3 RDW Coeff of Jaime 13.2 Plt Count 177 MPV 9.6 Immature Gran % (Auto) 0.1 Neut % (Auto) 65.4 Lymph % (Auto) 13.1 [place] % (Auto) 17.3 Eos % (Auto) 3.6 Baso % (Auto) 0.5 Neut # (Auto) 5.04 Lymph # (Auto) 1.01 L [place] # (Auto) 1.33 H Eos # (Auto) 0.28 Baso # (Auto) 0.04 Immature Gran # (Auto) 0.01 PT 12.9 H INR 1.3 H APTT 27.6 PTT Ratio 1.0 Sodium 140 Potassium 4.9 Chloride 113 H Carbon Dioxide 19 L Anion Gap 8.0 BUN 51 H Creatinine 3.30 H Est Cr Clr Drug Dosing 18.0 Est GFR ( Amer) 18.7 Est GFR (Non-Af Amer) 16.1 BUN/Creatinine Ratio 15.4 Glucose 145 H Calcium 8.4 L Magnesium Total Bilirubin 0.3 AST 20 ALT 17 Alkaline Phosphatase 83 Troponin I 0.364 H* Total Protein 6.2 L Albumin 2.6 L Globulin 3.6 Albumin/Globulin Ratio 0.7 L Lipase 195 COVID-19 Eval Order SARS-CoV-2 (PCR) 06/11/21 06/11/21 06/11/21 05:30 06:28 06:28 WBC RBC Hgb Hct MCV MCH MCHC RDW Std Deviation RDW Coeff of Jaime Plt Count MPV Immature Gran % (Auto) Neut % (Auto) Lymph % (Auto) [place] % (Auto) Eos % (Auto) Baso % (Auto) Neut # (Auto) Lymph # (Auto) [place] # (Auto) Eos # (Auto) Baso # (Auto) Immature Gran # (Auto) PT INR APTT PTT Ratio Sodium Potassium Chloride Carbon Dioxide Anion Gap BUN Creatinine Est Cr Clr Drug Dosing Est GFR ( Amer) Est GFR (Non-Af Amer) BUN/Creatinine Ratio Glucose Calcium Magnesium 1.8 Total Bilirubin AST ALT Alkaline Phosphatase Troponin I Total Protein Albumin Globulin Albumin/Globulin Ratio Lipase COVID-19 Eval Order Covid19 at [facility] SARS-CoV-2 (PCR) NEGATIVE 06/11/21 07:20 WBC RBC Hgb Hct MCV MCH MCHC RDW Std Deviation RDW Coeff of Jaime Plt Count MPV Immature Gran % (Auto) Neut % (Auto) Lymph % (Auto) [place] % (Auto) Eos % (Auto) Baso % (Auto) Neut # (Auto) Lymph # (Auto) [place] # (Auto) Eos # (Auto) Baso # (Auto) Immature Gran # (Auto) PT INR APTT PTT Ratio Sodium Potassium Chloride Carbon Dioxide Anion Gap BUN Creatinine Est Cr Clr Drug Dosing Est GFR ( Amer) Est GFR (Non-Af Amer) BUN/Creatinine Ratio Glucose Calcium Magnesium Total Bilirubin AST ALT Alkaline Phosphatase Troponin I 0.336 H* Total Protein Albumin Globulin Albumin/Globulin Ratio Lipase COVID-19 Eval Order SARS-CoV-2 (PCR) Diagnostic Findings Echocardiogram 05/27/2021 The LV wall thickness is mildly increased (concentric). The left ventricular wall motion is normal. The qualitative LV ejection fraction is 55-59% (normal). The left atrium is normal sized. The left ventricular diastolic function is mildly abnormal (grade I). Mild aortic valve sclerosis is present. Aortic stenosis is absent. Mild mitral regurgitation is present. The aortic root is mildly enlarged with diameter of 4 cm. The visualized portion of the proximal ascending aorta is 3.6 cm in diameter which is normal. ECG Additional Comments: EKG on presentation narrow complex tachycardia at 128 bpm
[2021-06-11] MEDS ORDERED: ADENOSINE IV SOLN 3 MG/ML 2 ML VIAL IV SCH (10:00)
[2021-06-11] MEDS: INSULIN ASPART 100 UNITS/ML 3 ML PEN SC SCH ×4 (10:05→21:14)
[2021-06-11] MEDS: ATORVASTATIN 40 MG TAB PO SCH (10:41)
[2021-06-11 10:58] LABS: Appearance Urine Clear (Clear); Bacteria Urine Automated Negative (Negative); Bilirubin Urine Negative (Negative); Blood Urine Negative (Negative); Cast Urine Automated 0 /lpf (0-5); Color Urine Yellow; Glucose Urine UA Negative (Negative); Ketones Urine Negative (Negative); Leukocyte Esterase Urine Trace (Negative); Nitrite Urine Negative (Negative); Protein Urine 3+ (Negative); RBC Urine Automated 0-4 /hpf (0-4); Urobilinogen Urine Negative (Negative); pH Urine 5.5 (4.5-7.5)
[2021-06-11] MEDS ORDERED: PNEUMOCOCCAL Polysaccharide Vaccine 25mcg/0.5mL vial/Syr IM ONE (11:15)
--- NOTE | 2021-06-11 13:48 | Electrocardiogram Report ---
Test Reason : Blood Pressure : / mmHG Vent. Rate : 128 BPM Atrial Rate : 119 BPM P-R Int : 000 ms QRS Dur : 104 ms QT Int : 322 ms P-R-T Axes : 000 017 061 degrees QTc Int : 470 ms Poor data quality, interpretation may be adversely affected Accelerated Junctional rhythm with retrograde conduction Nonspecific ST abnormality Abnormal ECG When compared with ECG of 10-JUN-2021 11:24, Junctional rhythm has replaced Sinus rhythm Vent. rate has increased BY 50 BPM Confirmed by Reid Clemons ([id number]) on 06/11/2021 1:48:06 PM Referred By: REFERRED SELF Confirmed By:Reid Clemons
--- NOTE | 2021-06-11 13:50 | Electrocardiogram Report ---
Test Reason : Blood Pressure : / mmHG Vent. Rate : 075 BPM Atrial Rate : 075 BPM P-R Int : 424 ms QRS Dur : 088 ms QT Int : 360 ms P-R-T Axes : 006 -03 081 degrees QTc Int : 402 ms Sinus rhythm with 1st degree A-V block Moderate voltage criteria for LVH, may be normal variant Nonspecific T wave abnormality Abnormal ECG When compared with ECG of 11-JUN-2021 05:22, (unconfirmed) Sinus rhythm has replaced Junctional rhythm Vent. rate has decreased BY [address] no longer depressed in Lateral leads Confirmed by Reid Clemons ([id number]) on 06/11/2021 1:50:22 PM Referred By: REFERRED SELF Confirmed By:Reid Clemons
[2021-06-11] MEDS ORDERED: STAT IV Infusion **Titration per Protocol STA (16:53)
[2021-06-11] MEDS ORDERED: AMIODARONE IV BOLUS & DRIP IV STA (16:53)
[2021-06-11] MEDS ORDERED: 0.2 MICRON FILTER SET 1 EA IV ONE (16:53)
[2021-06-11] MEDS ORDERED: AMIODARONE / D5W 150 MG/100 ML BAG IV STA (16:53)
--- NOTE | 2021-06-11 16:53 | Cardiology Progress Note ---
Date of Service June 11, 2021 Assessment & Plan (1) Tachy-yasmine syndrome: Plan: pacemaker interrogated and working normal function wound check next week as scheduled (2) PAF (paroxysmal atrial fibrillation): Plan: Pacemaker interrogated; no arrhythmias stored probably due to the SVT being below the detection rate; device reprogrammed to lower the detection rates; I would recommend starting amiodarone infusion and bolus overnight then discharge to 200mg daily. continue metoprolol as well. (3) CKD (chronic kidney disease) stage 4, GFR 15-29 ml/min: (4) PAT (paroxysmal atrial tachycardia): (5) Hx of CABG: Plan: 2002 (6) Elevated troponin: Admission and Anticipated Discharge Date Admission Date: June 11, 2021 Subjective no further episodes Results & Data ([facility]) Vital Signs (Past 12 Hours) Vital Signs Temp Pulse Pulse Pulse Resp BP BP 06/11/21 15:20 74 06/11/21 15:07 36.6 C 71 16 142/64 H 06/11/21 11:50 36.3 C L 76 18 144/74 H 06/11/21 11:44 80 06/11/21 08:47 36.6 C 123 H 20 123/75 06/11/21 07:25 120 H 18 92/64 L 06/11/21 06:37 121 H 130/80 06/11/21 06:30 123 H 20 130/80 06/11/21 06:29 06/11/21 06:00 124 H 12 118/75 06/11/21 05:32 06/11/21 05:26 37.0 C 129 H 24 117/75 Pulse Ox 06/11/21 15:20 06/11/21 15:07 99 06/11/21 11:50 96 06/11/21 11:44 06/11/21 08:47 98 06/11/21 07:25 96 06/11/21 06:37 06/11/21 06:30 96 06/11/21 06:29 97 06/11/21 06:00 98 06/11/21 05:32 96 06/11/21 05:26 98
[2021-06-11] MEDS ORDERED: AMIODARONE / D5W 360 MG/200 ML BAG IV ONE (17:03)
[2021-06-11] MEDS: DUTASTERIDE: ORDER AWAITING ACTION SCH (18:21)
[2021-06-11] MEDS: PANTOprazole 40 MG TAB PO SCH (21:18)
[2021-06-12] MEDS: DUTASTERIDE: ORDER AWAITING ACTION SCH ×3 (00:04→17:22)
[2021-06-12] MEDS: AMIODARONE / D5W 360 MG/200 ML BAG IV SCH ×2 (00:05→11:26)
[2021-06-12 06:23] LABS: Basophils # (auto) 0.03 K/uL (0-0.2); Basophils % (auto) 0.6 %; Eosinophils # (auto) 0.24 K/uL (0-0.5); Eosinophils % (auto) 4.6 %; Hematocrit (blood only) 28.1 % (42-52); Hemoglobin 9.3 g/dL (14.0-18.0); Immature Granulocytes # (auto) 0.01 K/uL (0.00-0.02); Immature Granulocytes % (auto) 0.2 %; Lymphocytes # (auto) 0.94 K/uL (1.2-3.4); Mean Corpuscular Hemoglobin 32.2 pg (25-34); Mean Corpuscular Hgb Conc 33.1 g/dL (32-36); Mean Corpuscular Volume 97.2 fL (80-100); Mean Platelet Volume 9.6 fL (7.4-10.4); Monocytes # (auto) 0.87 K/uL (0.11-0.59); Monocytes % (auto) 16.6 %; Neutrophils # (auto) 3.14 K/uL (1.4-6.5); Platelet Count 157 K/uL (130-400); RDW Coefficient of Variation 13.2 % (11.5-14.5); RDW Standard Deviation 46.6 fL (36.4-46.3); Red Blood Count 2.89 M/uL (4.7-6.1); White Blood Count 5.23 K/uL (4.8-10.8)
[2021-06-12 06:36] LABS: INR 1.2 (0.9-1.1); Prothrombin Time 11.6 Seconds (9.0-12.0)
[2021-06-12 06:58] LABS: BUN Creatinine Ratio 15.4 (10-20); Calcium 8.2 mg/dl (8.5-10.1); Creatinine Clr Calc Pharmacy 19.8 ml/min; Est GFR (African American) 22.7 ml/min; Est GFR (Non-African American) 19.6 ml/min; Potassium 4.8 mmol/L (3.5-5.1)
[2021-06-12] MEDS: ATORVASTATIN 40 MG TAB PO SCH (08:19)
[2021-06-12] MEDS: ASPIRIN 81 MG ECTAB PO SCH (08:20)
[2021-06-12] MEDS: METOPROLOL SUCC 50MG EXT REL TAB PO SCH ×2 (08:21→20:34)
[2021-06-12] MEDS: INSULIN ASPART 100 UNITS/ML 3 ML PEN SC SCH ×4 (08:22→20:34)
[2021-06-12] MEDS: amLODIPine BESYLATE 5 MG TAB PO SCH (09:22)
--- NOTE | 2021-06-12 10:36 | Hospitalist Progress Note ---
Date of Service June 12, 2021 Assessment & Plan (1) Chest pain: Plan: With troponin elevation Likely secondary to demand ischemia with elevated heart rate and renal insufficiency Doubt any ACS Appreciate cardiology input and recommendation Paroxysmal atrial tachycardia/paroxysmal atrial fibrillation hx CAD status post CABG Has been started on amiodarone and plan to discharge home with oral medications Continue beta-marcus, statin medications Hypertension Noted to be very high blood pressure this morning of systolic more than 200 Started on Norvasc's 5 mg once a day Blood pressure is coming down SSS sp recent PPM on Coumadin, INR subtherapeutic, Coumadin to be restarted today postprocedure hyperlipidemia on statin Rx ARF on CRI Creatinine remains stable Lisinopril is on hold Renal ultrasound, nephrology consult if without improvement in kidney function DM2 on oral medications, well-controlled as of recent hemoglobin A1c of 6.06 June 2021 ISS BG goal 1 10-1 40 Chronic anemia, hemoglobin at baseline DVT prophylaxis. Coumadin INR goal between 2 and 3 if no procedure contemplated; IV Heparin if with subsequent troponin elevation if Coumadin to be held indefinitely while INR subtherapeutic Full code Patient's [id number] requesting updates from providers. Ms. Ninfa Mata, contact #[phone]. Admission and Anticipated Discharge Date Admission Date: June 11, 2021 Subjective 06/12/2021 The patient was seen and examined in telemetry unit He was noted to have very high blood pressure this morning without any symptoms His heart rate is controlled and denies any cardiac symptoms of chest pain, palpitation or shortness of breath He wants to go home Review of Systems Review of Systems: All systems reviewed and are unremarkable except as noted below Respiratory: No shortness of breath at rest Cardiovascular: Additional Comments: No palpitation, chest pain and/or pressure Physical Exam Physical Exam: Sitting on a chair without any acute distress Constitutional: well developed, well nourished and + obese; not ill appearing Eyes: PERRL, conjunctivae normal, anicteric sclerae ENMT: external ear and nose normal, oropharynx normal Neck: trachea midline, no thyromegaly Respiratory: + cough; no respiratory distress Auscultation: + diminished lung sounds; no crackles and no wheezes Cardiovascular: Rate/Rhythm: regular rate and regular rhythm; not tachycardic Heart Sounds: normal S1 and normal S2; no murmur Extremities: + edema (Trace edema bilaterally) Gastrointestinal (Abdomen): Inspection/Auscultation: normal bowel sounds; abdomen not distended Percussion/Palpation: abdomen soft; abdomen nontender Musculoskeletal: No acute arthritis in any joint Neurologic: Alert, awake and oriented x3. No focal sensory and motor deficit appreciated Lymphatic: no cervical or axillary lymphadenopathy Results & Data Results & Data ([facility]) Vital Signs (Past 12 Hours) Vital Signs Temp Pulse Resp BP Pulse Ox 06/12/21 08:56 172/78 H 06/12/21 07:00 36.5 C 60 20 210/79 H 97 06/12/21 04:00 36.7 C 60 18 153/71 H 94 06/11/21 22:50 37.0 C 61 17 146/66 H 95 Laboratory Results Short CBC 06/12/21 Range/Units 05:36 WBC 5.23 (4.8-10.8) K/uL Hgb 9.3 L (14.0-18.0) g/dL Hct 28.1 L (42-52) % Plt Count 157 (130-400) K/uL BMP 06/12/21 05:36 Sodium 138 Potassium 4.8 Chloride 112 H Carbon Dioxide 20 L BUN 43 H Creatinine 2.81 H D Glucose 129 H Calcium 8.2 L Urine 06/11/21 Range/Units Unknown Urine Color Yellow Urine Appearance Clear (Clear) Urine pH 5.5 (4.5-7.5) Ur Specific [place] 1.020 (1.000-1.030) Urine Protein 3+ H (Negative) Urine Glucose (UA) Negative (Negative) Medications Administered Current Inpatient Medications Acetaminophen (Acetaminophen 325 Mg Tab) 650 mg PO Q4H PRN PRN Reason: Pain or Fever Stop: 07/11/21 07:14 Amlodipine Besylate (Amlodipine Besylate 5 Mg Tab) 5 mg PO [facility] Stop: 07/12/21 08:59 Last Admin: 06/12/21 09:22 Dose: 5 mg Documented by: Aspirin (Aspirin 81 Mg Ectab) [facility] Stop: 07/12/21 08:59 Last Admin: 06/12/21 08:20 Dose: 81 mg Documented by: Atorvastatin Calcium (Atorvastatin 40 Mg Tab) [facility] Stop: 07/11/21 08:59 Last Admin: 06/12/21 08:19 Dose: 80 mg Documented by: Dextrose (Dextrose 50% 50 Ml Syringe) 25 - 50 ml IV UD PRN; Protocol PRN Reason: Hypoglycemia Protocol Stop: 07/11/21 08:44 Glucagon (Glucagon For Inj 1 Mg Vial) 1 mg SQ UD PRN; Protocol PRN Reason: Hypoglycemia Protocol Stop: 07/11/21 08:44 Glucose (Glucose 10 Tabs/Tube) 4 - 8 tabs PO UD PRN; Protocol PRN Reason: Hypoglycemia Protocol Stop: 07/11/21 08:44 Glucose (Glucose 40% Gel 15 Gm Tube) 15 - 30 gm PO UD PRN; Protocol PRN Reason: Hypoglycemia Protocol Stop: 07/11/21 08:44 Hydromorphone HCl (Hydromorphone Inj 0.5 Mg/0.5 Ml Syr) 0.25 mg IV Q3H PRN PRN Reason: Pain Stop: 06/25/21 07:14 Promethazine HCl 6.25 mg/ (Sodium Chloride) 50.25 mls @ 201 mls/hr IV Q6H PRN PRN Reason: Nausea And Vomiting Stop: 07/11/21 07:14 Amiodarone HCl/Dextrose (Nexterone / D5w) 360 mg in 200 mls @ 16.667 mls/hr IV .Q12H TRISTAN Stop: 07/11/21 22:59 Last Infusion: 06/12/21 07:07 Dose: 0.5 mg/min, 16.7 mls/hr Documented by: Insulin Aspart (Insulin Aspart 100 Units/Ml 3 Ml Pen) 0 units SC ACHS TRISTAN Stop: 07/11/21 08:59 Last Admin: 06/12/21 08:22 Dose: 4 units Documented by: Metoprolol Succinate (Metoprolol Succ 50mg Ext Rel Tab) 50 mg PO BID [facility] Stop: 07/11/21 08:59 Last Admin: 06/12/21 08:21 Dose: 50 mg Documented by: Miscellaneous (Dutasteride: Order Awaiting Action) 1 ea N/A QS [facility] Stop: 07/11/21 15:59 Last Admin: 06/12/21 07:19 Dose: Not Given Documented by: Miscellaneous (Carbohydrates For Hypoglycemia ) 15 - 30 gm PO UD PRN PRN Reason: Hypoglycemia Protocol Stop: 07/11/21 08:44 Nitroglycerin (Nitroglycerin Sl 0.4 Mg/Tab Tab) 0.4 mg SL UD PRN PRN Reason: Chest Pain Stop: 07/11/21 07:14 Pantoprazole Sodium (Pantoprazole 40 Mg Tab) 40 mg PO HS TRISTAN Stop: 07/11/21 20:59 Last Admin: 06/11/21 21:18 Dose: 40 mg Documented by: Tramadol HCl (Tramadol Hcl 50 Mg Tablet) 25 - 50 mg PO Q4H PRN PRN Reason: Pain Stop: 07/11/21 07:14 (1) Chest pain Chest pain type: other chest pain Qualified Code(s): R07.89 - Other chest pain
--- NOTE | 2021-06-12 11:07 | Cardiology Progress Note ---
Date of Service June 12, 2021 Assessment & Plan (1) PAT (paroxysmal atrial tachycardia): (2) PAF (paroxysmal atrial fibrillation): (3) CKD (chronic kidney disease) stage 4, GFR 15-29 ml/min: Plan: Creatinine elevated above baseline on presentation we will hold lisinopril (4) Hx of CABG: Plan: 2002 (5) Elevated troponin: Plan: Secondary to demand issues of elevated heart rate acute on chronic renal insufficiency Plan: Patient is an 86-year-old male with complex constellation of issues as outlined. Longstanding chronic stable ischemic heart disease with preserved LV systolic function. Recent past difficulties with paroxysmal atrial arrhythmias and past TIA on chronic anticoagulation. Patient underwent dual-chamber pacemaker insertion day prior to presentation for tachybradycardia syndrome. Patient presents this admission having awakened from sleep with heart pounding and chest tightness. Patient once again in narrow complex tachycardia on presentation with rapid ventricular response Patient converted with 6 mg IV adenosine on arrival to telemetry floor Plan: Atrial arrhythmias discussed with patient as well as recurrent SVT Amiodarone IV infusion bolus completed. Will change to oral dosing at 200 mg/day, continue metoprolol Continue to hold lisinopril with amlodipine 5 mg/day as substituted to treat hypertension. Would recommend nephrology referral post hospitalization If patient ambulatory and feeling well may be discharged later today. 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 No complaints. No arrhythmias overnight with rhythm predominantly atrial paced this morning. Blood pressures have been elevated likely multifactorial. Lisinopril held patient received IV fluids and hydration overnight Renal function has returned to near baseline Review of Systems Review of Systems: All systems reviewed & are unremarkable except as noted in Subjective Physical Exam Constitutional: well developed and well nourished; no acute distress Eyes: PERRL, conjunctivae normal, anicteric sclerae ENMT: external ear and nose normal, oropharynx normal Neck: trachea midline, no thyromegaly Respiratory: normal respiratory effort, lungs clear to auscultation Cardiovascular: Rate/Rhythm: regular rate and regular rhythm Heart Sounds: normal S1 and normal S2; no gallop and no murmur Palpation: normal PMI Vessels: normal carotid upstroke and radial pulses present; no JVD and no carotid bruit Extremities: no edema Chest (Breasts): Chest: + pacemaker (Recent surgical site intact without hematoma or erythema) Gastrointestinal (Abdomen): normal bowel sounds, soft, nontender, no hepatosplenomegaly Musculoskeletal: no cyanosis or clubbing, extremities motor strength 5/5 Skin: no rashes, warm and dry Neurologic: PERRL, EOMI, accommodation nl, no face palsy, no dysarthria Psychiatric: A+Ox3, euthymic affect Results & Data ([facility]) Vital Signs (Past 12 Hours) Vital Signs Temp Pulse Resp BP Pulse Ox 06/12/21 10:48 36.7 C 61 17 196/80 H 100 06/12/21 08:56 172/78 H 06/12/21 07:00 36.5 C 60 20 210/79 H 97 06/12/21 04:00 36.7 C 60 18 153/71 H 94 Laboratory Results Laboratory Results - last 24 hr 06/11/21 06/11/21 06/11/21 11:42 15:58 20:15 WBC RBC Hgb Hct MCV MCH MCHC RDW Std Deviation RDW Coeff of Jaime Plt Count MPV Immature Gran % (Auto) Neut % (Auto) Lymph % (Auto) [place] % (Auto) Eos % (Auto) Baso % (Auto) Neut # (Auto) Lymph # (Auto) [place] # (Auto) Eos # (Auto) Baso # (Auto) Immature Gran # (Auto) PT INR Sodium Potassium Chloride Carbon Dioxide Anion Gap BUN Creatinine Est Cr Clr Drug Dosing Est GFR ( Amer) Est GFR (Non-Af Amer) BUN/Creatinine Ratio Glucose POC Glucose 135 H 134 H 134 H Calcium Triglycerides Cholesterol LDL Cholesterol, Calc VLDL Cholesterol, Calc HDL Cholesterol Cholesterol/HDL Ratio 06/12/21 06/12/21 06/12/21 05:36 05:36 05:36 WBC 5.23 RBC 2.89 L Hgb 9.3 L Hct 28.1 L MCV 97.2 MCH 32.2 MCHC 33.1 RDW Std Deviation 46.6 H RDW Coeff of Jaime 13.2 Plt Count 157 MPV 9.6 Immature Gran % (Auto) 0.2 Neut % (Auto) 60.0 Lymph % (Auto) 18.0 [place] % (Auto) 16.6 Eos % (Auto) 4.6 Baso % (Auto) 0.6 Neut # (Auto) 3.14 Lymph # (Auto) 0.94 L [place] # (Auto) 0.87 H Eos # (Auto) 0.24 Baso # (Auto) 0.03 Immature Gran # (Auto) 0.01 PT 11.6 INR 1.2 H Sodium 138 Potassium 4.8 Chloride 112 H Carbon Dioxide 20 L Anion Gap 6.0 BUN 43 H Creatinine 2.81 H D Est Cr Clr Drug Dosing 19.8 Est GFR ( Amer) 22.7 Est GFR (Non-Af Amer) 19.6 BUN/Creatinine Ratio 15.4 Glucose 129 H POC Glucose Calcium 8.2 L Triglycerides 201 H Cholesterol 131 LDL Cholesterol, Calc 62 VLDL Cholesterol, Calc 40 HDL Cholesterol 29 Cholesterol/HDL Ratio 5 06/12/21 07:23 WBC RBC Hgb Hct MCV MCH MCHC RDW Std Deviation RDW Coeff of Jaime Plt Count MPV Immature Gran % (Auto) Neut % (Auto) Lymph % (Auto) [place] % (Auto) Eos % (Auto) Baso % (Auto) Neut # (Auto) Lymph # (Auto) [place] # (Auto) Eos # (Auto) Baso # (Auto) Immature Gran # (Auto) PT INR Sodium Potassium Chloride Carbon Dioxide Anion Gap BUN Creatinine Est Cr Clr Drug Dosing Est GFR ( Amer) Est GFR (Non-Af Amer) BUN/Creatinine Ratio Glucose POC Glucose 133 H Calcium Triglycerides Cholesterol LDL Cholesterol, Calc VLDL Cholesterol, Calc HDL Cholesterol Cholesterol/HDL Ratio
[2021-06-12] MEDS: AMIODARONE 200 MG TAB PO SCH (11:56)
[2021-06-12] MEDS ORDERED: ENOXAPARIN 80 MG/0.8 ML SYR SQ ONE (14:59)
[2021-06-12] MEDS ORDERED: WARFARIN SOD 3 MG TAB PO SCH (16:00)
[2021-06-12] MEDS: PANTOprazole 40 MG TAB PO SCH (20:34)
[2021-06-13] MEDS: DUTASTERIDE: ORDER AWAITING ACTION SCH ×3 (00:27→13:22)
[2021-06-13 07:25] LABS: INR 1.1 (0.9-1.1); Prothrombin Time 11.4 Seconds (9.0-12.0)
[2021-06-13 07:44] LABS: BUN Creatinine Ratio 15.6 (10-20); Calcium 8.8 mg/dl (8.5-10.1); Creatinine Clr Calc Pharmacy 21.3 ml/min; Est GFR (African American) 24.7 ml/min; Est GFR (Non-African American) 21.3 ml/min; Potassium 4.8 mmol/L (3.5-5.1)
[2021-06-13] MEDS: amLODIPine BESYLATE 5 MG TAB PO SCH (08:15)
[2021-06-13] MEDS: ASPIRIN 81 MG ECTAB PO SCH (08:15)
[2021-06-13] MEDS: ATORVASTATIN 40 MG TAB PO SCH (08:15)
[2021-06-13] MEDS: METOPROLOL SUCC 50MG EXT REL TAB PO SCH (08:15)
[2021-06-13] MEDS: INSULIN ASPART 100 UNITS/ML 3 ML PEN SC SCH ×2 (08:17→12:08)
[2021-06-13] MEDS: AMIODARONE 200 MG TAB PO SCH (09:03)
[2021-06-13] MEDS ORDERED: ENOXAPARIN INJ 120 MG/0.8 ML SYR SQ SCH (09:30)
--- NOTE | 2021-06-13 10:20 | Cardiology Progress Note ---
Date of Service June 13, 2021 Assessment & Plan (1) PAT (paroxysmal atrial tachycardia): (2) PAF (paroxysmal atrial fibrillation): (3) CKD (chronic kidney disease) stage 4, GFR 15-29 ml/min: Plan: Creatinine elevated above baseline on presentation we will hold lisinopril (4) Hx of CABG: Plan: 2002 (5) Elevated troponin: Plan: Secondary to demand issues of elevated heart rate acute on chronic renal insufficiency Plan: Patient is an 86-year-old male with complex constellation of issues as outlined. Longstanding chronic stable ischemic heart disease with preserved LV systolic function. Recent past difficulties with paroxysmal atrial arrhythmias and past TIA on chronic anticoagulation. Patient underwent dual-chamber pacemaker insertion day prior to presentation for tachybradycardia syndrome. Patient presents this admission having awakened from sleep with heart pounding and chest tightness. Patient once again in narrow complex tachycardia on presentation with rapid ventricular response Patient converted with 6 mg IV adenosine on arrival to telemetry floor Patient since admission to started on amiodarone therapy. Lisinopril switched to amlodipine due to renal insufficiency. Plan: Stable for discharge on amlodipine 200 mg/day. Warfarin to be resumed with patient to undergo coag clinic follow-up next week will likely need reduction in warfarin dosing due to amiodarone Patient to remain off lisinopril Admission and Anticipated Discharge Date Admission Date: June 11, 2021 Subjective Patient seen and examined, chart, medications, telemetry reviewed. Blood pressures improved this morning. No arrhythmias on telemetry. Overall feeling well sitting out of bed in chair Review of Systems Review of Systems: All systems reviewed & are unremarkable except as noted in Subjective Physical Exam Constitutional: well developed and well nourished; no acute distress Eyes: PERRL, conjunctivae normal, anicteric sclerae ENMT: external ear and nose normal, oropharynx normal Neck: trachea midline, no thyromegaly Respiratory: normal respiratory effort, lungs clear to auscultation Cardiovascular: Rate/Rhythm: regular rate and regular rhythm Heart Sounds: normal S1 and normal S2; no gallop and no murmur Palpation: normal PMI Vessels: normal carotid upstroke and radial pulses present; no JVD and no carotid bruit Extremities: no edema Chest (Breasts): Chest: + pacemaker (Recent surgical site intact without hematoma or erythema) Gastrointestinal (Abdomen): normal bowel sounds, soft, nontender, no hepatosplenomegaly Musculoskeletal: no cyanosis or clubbing, extremities motor strength 5/5 Skin: no rashes, warm and dry Neurologic: PERRL, EOMI, accommodation nl, no face palsy, no dysarthria Psychiatric: A+Ox3, euthymic affect Results & Data ([facility]) Vital Signs (Past 12 Hours) Vital Signs Temp Pulse Resp BP Pulse Ox 06/13/21 07:50 36.7 C 73 18 143/68 H 96 06/13/21 04:05 37.0 C 68 17 151/76 H 98 Laboratory Results Laboratory Results - last 24 hr 06/12/21 06/12/21 06/12/21 11:19 16:24 19:56 PT INR Sodium Potassium Chloride Carbon Dioxide Anion Gap BUN Creatinine Est Cr Clr Drug Dosing Est GFR ( Amer) Est GFR (Non-Af Amer) BUN/Creatinine Ratio Glucose POC Glucose 131 H 115 H 141 H Calcium 06/13/21 06/13/21 07:02 07:02 PT 11.4 INR 1.1 Sodium 138 Potassium 4.8 Chloride 111 H Carbon Dioxide 21 Anion Gap 6.0 BUN 41 H Creatinine 2.62 H Est Cr Clr Drug Dosing 21.3 Est GFR ( Amer) 24.7 Est GFR (Non-Af Amer) 21.3 BUN/Creatinine Ratio 15.6 Glucose 123 H POC Glucose Calcium 8.8
--- NOTE | 2021-06-13 11:42 | Hospitalist Progress Note ---
Date of Service June 13, 2021 Assessment & Plan (1) Chest pain: Plan: With troponin elevation Likely secondary to demand ischemia with elevated heart rate and renal insufficiency Doubt any ACS Appreciate cardiology input and recommendation Paroxysmal atrial tachycardia/paroxysmal atrial fibrillation hx CAD status post CABG Has been started on amiodarone and plan to discharge home with oral medications Continue beta-marcus, statin medications Heart rate remains controlled Hypertension Noted to be very high blood pressure this morning of systolic more than 200 Started on Norvasc's 5 mg once a day Blood pressure is coming down Blood pressure is stable at 143/68 SSS sp recent PPM on Coumadin, INR subtherapeutic, Coumadin to be restarted today postprocedure hyperlipidemia on statin Rx ARF on CRI Creatinine remains stable Lisinopril is on hold Renal ultrasound, nephrology consult if without improvement in kidney function Kidney function has been stable-we will make an earlier appointment with the pathology specialist as an outpatient DM2 on oral medications, well-controlled as of recent hemoglobin A1c of 6.06 June 2021 ISS BG goal 1 10-1 40 Chronic anemia, hemoglobin at baseline DVT prophylaxis. Coumadin INR goal between 2 and 3 if no procedure contemplated; IV Heparin if with subsequent troponin elevation if Coumadin to be held indefinitely while INR subtherapeutic INR remains subtherapeutic We will give Lovenox and Coumadin until INR is therapeutic-likely to need less dose of Coumadin as he is on amiodarone Coumadin clinic will be notified Full code Patient's [id number] requesting updates from providers. Ms. Ocasio Esperanza, contact #[phone]. Admission and Anticipated Discharge Date Admission Date: June 11, 2021 Subjective 06/12/2021 The patient was seen and examined in telemetry unit He was noted to have very high blood pressure this morning without any symptoms His heart rate is controlled and denies any cardiac symptoms of chest pain, palpitation or shortness of breath He wants to go home 06/13/2021 The patient was seen and examined in telemetry unit He denies any complaints and wants to go home this afternoon His INR is not therapeutic he will need to have Lovenox with Coumadin before the INR is therapeutic Review of Systems Review of Systems: All systems reviewed and are unremarkable except as noted below Respiratory: No shortness of breath at rest Cardiovascular: Additional Comments: No palpitation, chest pain and/or pressure Physical Exam Physical Exam: Sitting on a chair without any acute distress Constitutional: well developed, well nourished and + obese; not ill appearing Eyes: PERRL, conjunctivae normal, anicteric sclerae ENMT: external ear and nose normal, oropharynx normal Neck: trachea midline, no thyromegaly Respiratory: + cough; no respiratory distress Auscultation: + diminished lung sounds; no crackles and no wheezes Cardiovascular: Rate/Rhythm: regular rate and regular rhythm; not tachycardic Heart Sounds: normal S1 and normal S2; no murmur Extremities: + edema (Trace edema bilaterally) Gastrointestinal (Abdomen): Inspection/Auscultation: normal bowel sounds; abdomen not distended Percussion/Palpation: abdomen soft; abdomen nontender Musculoskeletal: No acute arthritis in any joint Lymphatic: no cervical or axillary lymphadenopathy Results & Data Results & Data ([facility]) Vital Signs (Past 12 Hours) Vital Signs Temp Pulse Pulse Resp BP Pulse Ox 06/13/21 08:00 69 06/13/21 07:50 36.7 C 73 18 143/68 H 96 06/13/21 04:05 37.0 C 68 17 151/76 H 98 Laboratory Results [facility] 06/13/21 07:02 Sodium 138 Potassium 4.8 Chloride 111 H Carbon Dioxide 21 BUN 41 H Creatinine 2.62 H Glucose 123 H Calcium 8.8 Medications Administered Current Inpatient Medications Acetaminophen (Acetaminophen 325 Mg Tab) 650 mg PO Q4H PRN PRN Reason: Pain or Fever Stop: 07/11/21 07:14 Amiodarone HCl (Amiodarone 200 Mg Tab) 200 mg PO [facility] Stop: 07/12/21 11:14 Last Admin: 06/13/21 09:03 Dose: 200 mg Documented by: Amlodipine Besylate (Amlodipine Besylate 5 Mg Tab) 5 mg PO [facility] Stop: 07/12/21 08:59 Last Admin: 06/13/21 08:15 Dose: 5 mg Documented by: Aspirin (Aspirin 81 Mg Ectab) 81 mg PO [facility] Stop: 07/12/21 08:59 Last Admin: 06/13/21 08:15 Dose: 81 mg Documented by: Atorvastatin Calcium (Atorvastatin 40 Mg Tab) 80 mg PO [facility] Stop: 07/11/21 08:59 Last Admin: 06/13/21 08:15 Dose: 80 mg Documented by: Dextrose (Dextrose 50% 50 Ml Syringe) 25 - 50 ml IV UD PRN; Protocol PRN Reason: Hypoglycemia Protocol Stop: 07/11/21 08:44 Enoxaparin Sodium (Enoxaparin Inj 120 Mg/0.8 Ml Syr) 120 mg SQ DAILY [facility] Stop: 07/13/21 09:29 Last Admin: 06/13/21 11:37 Dose: 120 mg Documented by: Glucagon (Glucagon For Inj 1 Mg Vial) 1 mg SQ UD PRN; Protocol PRN Reason: Hypoglycemia Protocol Stop: 07/11/21 08:44 Glucose (Glucose 10 Tabs/Tube) 4 - 8 tabs PO UD PRN; Protocol PRN Reason: Hypoglycemia Protocol Stop: 07/11/21 08:44 Glucose (Glucose 40% Gel 15 Gm Tube) 15 - 30 gm PO UD PRN; Protocol PRN Reason: Hypoglycemia Protocol Stop: 07/11/21 08:44 Hydromorphone HCl (Hydromorphone Inj 0.5 Mg/0.5 Ml Syr) 0.25 mg IV Q3H PRN PRN Reason: Pain Stop: 06/25/21 07:14 Promethazine HCl 6.25 mg/ (Sodium Chloride) 50.25 mls @ 201 mls/hr IV Q6H PRN PRN Reason: Nausea And Vomiting Stop: 07/11/21 07:14 Insulin Aspart (Insulin Aspart 100 Units/Ml 3 Ml Pen) 0 units SC ACHS [facility] Stop: 07/11/21 08:59 Last Admin: 06/13/21 08:17 Dose: 4 units Documented by: Metoprolol Succinate (Metoprolol Succ 50mg Ext Rel Tab) 50 mg PO BID [facility] Stop: 07/11/21 08:59 Last Admin: 06/13/21 08:15 Dose: 50 mg Documented by: Miscellaneous (Dutasteride: Order Awaiting Action) 1 ea N/A QS [facility] Stop: 07/11/21 15:59 Last Admin: 06/13/21 08:57 Dose: Not Given Documented by: Miscellaneous (Carbohydrates For Hypoglycemia ) 15 - 30 gm PO UD PRN PRN Reason: Hypoglycemia Protocol Stop: 07/11/21 08:44 Nitroglycerin (Nitroglycerin Sl 0.4 Mg/Tab Tab) 0.4 mg SL UD PRN PRN Reason: Chest Pain Stop: 07/11/21 07:14 Pantoprazole Sodium (Pantoprazole 40 Mg Tab) 40 mg PO HS [facility]ST[facility] Stop: 07/11/21 20:59 Last Admin: 06/12/21 20:34 Dose: 40 mg Documented by: Tramadol HCl (Tramadol Hcl 50 Mg Tablet) 25 - 50 mg PO Q4H PRN PRN Reason: Pain Stop: 07/11/21 07:14 Warfarin Sodium (Warfarin Sod 3 Mg Tab) 3 mg PO DAILY@1600 [facility] Stop: 07/12/21 15:59 Last Admin: 06/12/21 16:05 Dose: 3 mg Documented by: (1) Chest pain Chest pain type: other chest pain Qualified Code(s): R07.89 - Other chest pain
--- NOTE | 2021-06-14 09:29 | Discharge Summary ---
Date of Service June 14, 2021 Admission HPI Per Admitting Provider History obtained from patient, family, and records. Medical history significant for CAD status post CABG, SSS sp recent PPM on Coumadin, hypertension, hyperlipidemia, CRI (baseline creatinine 2.9 ), chronic anemia (baseline hemoglobin 10-11 ), BPH, DM2 on oral medications. Last confinement June 2019 for strokelike symptoms. Patient underwent elective dual-chamber PPM placement for tachybradycardia syndrome yesterday at [facility]. Patient felt well after procedure although he went to bed early last night. Patient woke up early this morning with left-sided chest pain going to the left arm. No shortness of breath, no cough symptoms. Nonpleuritic. Some nausea symptoms when he stood up. Patient felt woozy. Does not recall having same chest pain before. Patient given aspirin and morphine upon arrival at the ER. Patient still with discomfort at the ER. Medical History as above Surgical History : PPM, cataract surgery, prostate removal, CABG Family History : Heart disease Personal/Social history : Non-smoker, occasional EtOH intake, practicing senior fund accountant Admission Exam Per Admitting Provider Physical Exam: GENERAL: Comfortable, slightly hard of hearing, no respiratory distress SKIN: Pallor,, warm HEENT: Alopecia, pale palpebral conjunctivae, no ptosis, dry buccal mucosa NECK : Supple, no tenderness CHEST : CTA, minimal tenderness over left PPM site HEART : Tachycardic, no obvious murmurs ABDOMEN: Some distention, nontender EXTREMITIES : No LE swelling/tenderness, no other conspicuous deformities noted NEUROLOGIC : Coherent, no facial asymmetry, mild hearing impairment, no other gross focality Principal Diagnosis Paroxysmal atrial fibrillation, chest pain-no ACS, hypertension, acute on chronic renal impairment, diabetes type 2 Discharge Exam Sitting on a chair without any acute distress Constitutional well developed, well nourished and + obese; not ill appearing Eyes PERRL, conjunctivae normal, anicteric sclerae ENMT external ear and nose normal, oropharynx normal Neck trachea midline, no thyromegaly Respiratory + cough; no respiratory distress Auscultation: + diminished lung sounds; no crackles and no wheezes Cardiovascular Rate/Rhythm: regular rate and regular rhythm; not tachycardic Heart Sounds: normal S1 and normal S2; no murmur Extremities: + edema (Trace edema bilaterally) Gastrointestinal (Abdomen) Inspection/Auscultation: normal bowel sounds; abdomen not distended Percussion/Palpation: abdomen soft; abdomen nontender Lymphatic no cervical or axillary lymphadenopathy Discharge Data Allergies Allergy/AdvReac Type Severity Reaction Status Date / Time No Known Allergies Allergy Unverified 06/11/21 07:13 Consultations 06/11/21 06:24 ED Decision to Admit Stat 06/11/21 08:45 Consult Cardiology Routine Hospital Course (1) Chest pain: With troponin elevation Likely secondary to demand ischemia with elevated heart rate and renal insufficiency Doubt any ACS Appreciate cardiology input and recommendation Paroxysmal atrial tachycardia/paroxysmal atrial fibrillation hx CAD status post CABG Has been started on amiodarone and plan to discharge home with oral medications Continue beta-marcus, statin medications Heart rate remains controlled Hypertension Noted to be very high blood pressure this morning of systolic more than 200 Started on Norvasc's 5 mg once a day Blood pressure is coming down Blood pressure is stable at 143/68 SSS sp recent PPM on Coumadin, INR subtherapeutic, Coumadin to be restarted today postprocedure hyperlipidemia on statin Rx ARF on CRI Creatinine remains stable Lisinopril is on hold Renal ultrasound, nephrology consult if without improvement in kidney function Kidney function has been stable-we will make an earlier appointment with the cost control supervisor as an outpatient DM2 on oral medications, well-controlled as of recent hemoglobin A1c of 6.06 June 2021 ISS BG goal 1 10-1 40 Chronic anemia, hemoglobin at baseline DVT prophylaxis. Coumadin INR goal between 2 and 3 if no procedure contemplated; IV Heparin if with subsequent troponin elevation if Coumadin to be held indefinitely while INR subtherapeutic INR remains subtherapeutic We will give Lovenox and Coumadin until INR is therapeutic-likely to need less dose of Coumadin as he is on amiodarone Coumadin clinic will be notified Full code Patient's [id number] requesting updates from providers. Ms. Ninfa Mata, contact #[phone]. Total Time Total Time Spent Total Time Spent (In Minutes): 40 minutes Discharge Plan Discharge Items Patient Disposition: Home - Self-Care Reason For Visit: CHEST PAIN,ELEVATED TROP Discharge Diagnosis: Paroxysmal atrial fibrillation, chest pain-no ACS, hypertension, acute on chronic renal impairment, diabetes type 2 Condition on Discharge: Fair Activity: Resume your previous activity Non-emergency contact: Primary Care Provider Call non-emergency contact if: you have any medication questions and your symptoms worsen Follow-up/Referrals: Eulogio Lugo, [Primary Care Provider] - 06/17/21 11:00 am (Your appointment is with Dr. Vidhya Riley) Diet: Carb Consistent or DM2 and Heart Healthy Addtl Attending Provider Instructions: Please take precautions to avoid falls Please take your medications as advised Your lisinopril has been discontinued and is replaced by Norvasc/amlodipine Your cost control supervisor office will call you with an earlier appointment for follow-up Please keep appointments with your healthcare providers You will need Lovenox subcu injection and Coumadin to be taken together for the next 2 to 3 days before the INR is therapeutic You will likely need lesser doses of Coumadin because you are on amiodarone Coagulation clinic has been notified Pending Studies at Discharge: No Stand-Alone Forms: My [facility] [employer], Smoking Cessation Medications and DC Order Prescriptions: New amiodarone 200 mg Tablet 200 mg PO QAM Qty: 30 RF: 0 amlodipine [Norvasc] 5 mg Tablet 5 mg PO QAM Qty: 30 RF: 0 aspirin 81 mg Tablet,Delayed Release (Dr/Ec) 81 mg PO QAM Qty: 30 RF: 0 enoxaparin [Lovenox] 120 mg/0.8 mL syringe 120 mg subcut DAILY Qty: 4 RF: 0 Continued atorvastatin [Lipitor] 80 mg Tablet 80 mg PO QAM RF: 0 metoprolol succinate [Toprol XL] 50 mg Tablet Extended Release 24 Hr 50 mg PO BID RF: 0 pantoprazole [Protonix] 40 mg Tablet,Delayed Release (Dr/Ec) 40 mg PO DAILY RF: 0 nitroglycerin [Nitrostat] 0.4 mg Tablet, Sublingual 0.4 mg sublingual UD RF: 0 cholecalciferol (vitamin D3) [Vitamin D3] 1,000 unit Tablet,Chewable 3,000 unit PO QAM RF: 0 magnesium oxide 400 mg magnesium Tablet 400 mg PO QAM RF: 0 diphenhydramine-acetaminophen [Tylenol PM Extra Strength] 25-500 mg Tablet 1 tab PO HS RF: 0 dutasteride [Avodart] 0.5 mg capsule 0.5 mg PO QAM RF: 0 glipizide [Glucotrol XL] 2.5 mg tablet extended release 24hr 2.5 mg PO QAM RF: 0 ascorbic acid (vitamin C) 500 mg Tablet,Chewable 2,000 mg PO DAILY RF: 0 warfarin [Jantoven] 3 mg tablet 3 mg PO QAM RF: 0 warfarin 3 mg tablet 1.5 mg PO DAILY RF: 0 Discontinued lisinopril [Zestril] 5 mg Tablet 5 mg PO QAM RF: 0 Discharge Orders: Discharge Order (Routine); Ordered 06/13/21 Ordered By: Kwame Souza Admission Data Admit Date/Time: 06/11/21 07:09 Attending Provider: Kwame Souza Admit Provider: Anup Knox Primary Care Provider: Eulogio Lugo Other Providers: Anup Knox ; Jesus Gupta ; Rei Schneider ; Finn Brown ; Kendrick Lin ; Cedric Valdez ; Efraín Marte ; Abbi Patel ; Alena Manuel ; Vikki Page ; Scott Leone Other Interventions: Discharge Summary Assessment (RN) Last Done: 06/13/21 13:04
== END 2021-06-13 15:38 | disposition home or self-care (01) ==
LOC: ED 05:17 → 2S 05:17

== ENCOUNTER 2022-01-30 17:21 | Inpatient (IN) ==
[2022-01-30] MEDS ORDERED: PANTOprazole 80 MG in DEXTROSE 5% 100 ML IV STA (17:33)
--- NOTE | 2022-01-30 17:44 | Emergency Department Note ---
Impression & Plan Dizziness, CKD (chronic kidney disease) stage 4, GFR 15-29 ml/min, Acute GI bleeding, ABLA (acute blood loss anemia), Hyperkalemia ED Provider Note Provider: Sage Reza MD DATE OF SERVICE: 01/30/2022 CHIEF COMPLAINT: Dizzy, bloody stools HISTORY OF PRESENT ILLNESS: Patient is a 86-year-old gentleman history of tachybradycardia syndrome with pacemaker, CAD, paroxysmal atrial fibrillation, CKD, diabetes presenting here today from his home with the onset this afternoon of some GI upset. Patient states he had some meatballs with Pasta sauce and then began to feel some stomach upset. Came home and 2 episodes of dark bloody diarrhea. Patient states he then vomited once and believes this was mainly just the meatballs and some Posta sauce and not blood. Patient denies any significan t abdominal pain. States he felt very dizzy after this and was unsteady. EMS was called and state the patient was quite unsteady on his feet and was brought here for further evaluation. Patient states he is currently not on warfarin at this time but does take an aspirin every day. Denies significant alcohol use but does report a baby aspirin use again daily. Denies chest pain. States maybe little bit of tingling in his feet. REVIEW OF SYSTEMS: A total of 10 review of systems was obtained and negative except as stated above in the HPI. PAST MEDICAL HISTORY: As noted above MEDICATIONS: Reviewed available home medication list includes amiodarone. SOCIAL HISTORY: , lives by himself PHYSICAL EXAM: GENERAL: alert and oriented in no acute distress on stretcher wearing his home close covered with a brownish-black vomitus. Head: normocephalic and atraumatic EYES: No injection, discharge or icterus. NECK: Trachea midline. Supple. ENT: Mucous membranes pink and moist. LUNGS: Airway patent. No retractions. Breath sounds clear with good air entry bilaterally. HEART: Regular rate and rhythm. No chest wall tenderness ABDOMEN: Soft and non-tender, without guarding or rebound. SKIN: Acyanotic, warm, dry, without rashes EXTREMITIES: Some trace 1+ edema of the left lower leg which does have a brace around the ankle. NEUROLOGICAL: No aphasia. No facial droop or slurred speech. Normal strength and tone in the extremities. Feels gross touch in all 4 extremities also subjective tingling in his lower feet EK beats minute atrial paced rhythm with prolonged AV conduction. No PVC noted. No acute ST segment elevation noted. QTc 438. CONTINUOUS CARDIAC MONITORING: was ordered and showed a heart rate of 60s-70s bpm in normal sinus rhythm Patient's laboratory studies and imaging reviewed. Differential includes Diverticulosis, AVM, coagulopathy, colitis, inflammatory bowel disease, malignancy, Leeanne-Humphrey tear, esophagitis, peptic ulcer disease, variceal bleed, gastritis, epistaxis, fissure, hemorrhoids, as well as other pathologies. IMPRESSION/MEDICAL DECISION MAKING: Patient be ambulance with some dizziness after several episodes of bloody's stools dark in color. The patient does not know that he is on Coumadin records indicate he gets INR testing regulated on Coumadin according to the [facility] records. Hemoglobin was last just above 9, 2 weeks ago. Creatinine was then at 3.3. Renal function is a little bit worse today and BUN is little bit elevated. Given a dose of Protonix here IV. Typed and screened and consented for least 1 unit of packed red blood cells given hemoglobin return today of 7.7. Denies significant abdominal pain. Given his renal function a CT of the head and the abdomen pelvis was obtained given the dizziness complaint. CT of the head per radiology no acute findings although CT abdomen pelvis questions duodenitis but no free air. Doubt perforated ulcer given lack of abdominal discomfort and pain. No significant trauma is reported. INR is elevated at 2.[address] Cameron reversing this is indication is paroxysmal atrial fibrillation he appears to have a GI bleed. Given IV vitamin K as well as Kcentra given the bleeding. Also noted on the chemistries is a potassium of 6.3. Ordered a gram o f calcium gluconate as well as albuterol, bicarbonate, insulin and dextrose. We will give a very small fluid bolus. Previously has followed with [facility] nephrology for CKD. Given this patient's under the plan to stay for further care here at the hospital. There is no significant EKG change at this time I do not believe the patient requires emergent dialysis. Protonix drip ordered and discussed with the patient and hospitalist further care here. DIAGNOSIS: Dizziness, GI bleed, acute anemia, CKD, hyperkalemia, duodenitis DISPOSITION: Hospitalist will evaluate Patient was agreeable with this plan. Critical Care I have personally spent 48 minutes of critical care time in the direct management of this patient. This includes bedside care, interpretation of d iagnostic studies, and testing, discussion with consultants, patient, and other required patient management activities. These 48 minutes is in excess of all separately billable procedures. Past Med/Surg History Medical History (Updated 01/30/22 @ 19:01 by Sage Reza M.D.) Benign localized hyperplasia of prostate with urinary obstruction CAD (coronary artery disease) Chronic prostatitis CKD (chronic kidney disease) stage 4, GFR 15-29 ml/min Diabetes mellitus History of supraventricular tachycardia HLD (hyperlipidemia) HTN (hypertension) Hyperparathyroidism PAF (paroxysmal atrial fibrillation) SVT (supraventricular tachycardia) T2DM (type 2 diabetes mellitus) Surgical History History of cataract extraction History of prostate surgery Hx of CABG hx of cabg x 3 2002 Family History Father , 72 Cancer Coronary heart disease Social History Smoking Status: Never smoker Tobacco Type: Pipe Second Hand Exposure: No; Hx Alcohol Use: Yes Alcohol type: beer Alcohol type Comment: wednesday will have 1-2 beverages Hx Substance Use: No Preferred Language: Khmer Communication Ability: Effective Tap Out Operator Required: No Beliefs That Will Affect Care: None marital status: / Current Living Situation: Alone current occupational status: employed How many Children do You have: 1 Feels Safe at Home: Yes Assistive Devices: Glasses and Walker Allergies Allergies Allergy/AdvReac Type Severity Reaction Status Date / Time No Known Allergies Allergy Unverified 01/30/22 20:03 Home Meds Home Medications Medication Instructions Recorded Confirmed amiodarone 200 mg tablet 200 mg PO DAILY 10/30/21 01/30/22 amlodipine 5 mg tablet 5 mg PO DAILY 10/30/21 01/30/22 aspirin 81 mg tablet,delayed 81 mg PO DAILY 10/30/21 01/30/22 release atorvastatin 80 mg tablet 80 mg PO DAILY 10/30/21 01/30/22 diphenhydramine 25 1 tab PO HS PRN 10/30/21 01/30/22 mg-acetaminophen 500 mg tablet (Tylenol PM Extra Strength) dutasteride 0.5 mg capsule 0.5 mg PO DAILY 10/30/21 01/30/22 glipizide 2.5 mg tablet, extended 2.5 mg PO DAILY 10/30/21 01/30/22 release 24 hr metoprolol succinate 50 mg 50 mg PO BID 10/30/21 01/30/22 tablet,extended release 24 hr nitroglycerin 0.4 mg sublingual 0.4 mg SUBLINGUAL DIRECTED 10/30/21 01/30/22 tablet (Nitrostat) ondansetron HCl 4 mg tablet 4 mg PO Q12 PRN 10/30/21 01/30/22 pantoprazole 40 mg tablet,delayed 40 mg PO DAILY 10/30/21 01/30/22 release warfarin 3 mg tablet (Jantoven) See Rx Instructions .ROUTE .COMPLEX 10/31/21 01/30/22 docusate sodium 100 mg tablet 100 mg PO BID 01/30/22 01/30/22 polyethylene glycol 3350 17 gram 17 g PO DAILY 01/30/22 01/30/22 oral powder packet (Miralax) Results & Data (ED) Vital Signs Vital Signs - 24 hr 01/30/22 17:28 01/30/22 17:35 01/30/22 18:09 Temperature 36.8 C Temperature Source Oral Pulse Rate 78 Pulse Rate [Apical] 70 Respiratory Rate 16 16 Respiratory Effort / Characteristics Non-Labored Spontaneous Non-Labored Spontaneous Respiratory Depth Normal Normal Respiratory Pattern Regular Blood Pressure 130/70 Blood Pressure [Left Arm] 119/59 L Blood Pressure Mean 90 Blood Pressure Mean [Left Arm] 79 Blood Pressure Position Lying Blood Pressure Position [Left Arm] Lying Pulse Oximetry 100 100 99 Oxygen Delivery Method Room Air Room Air Room Air Oxygen Flow Rate Sepsis Recent Fever Within 48 Hours No Sepsis New/Unexplained Change in Mental Status No Sepsis Action Taken by Nursing No Action Required 01/30/22 19:07 01/30/22 19:17 01/30/22 19:38 Temperature 36.8 C 36.7 C Temperature Source Oral Oral Pulse Rate 76 67 Pulse Rate [Apical] 62 Respiratory Rate 16 20 20 Respiratory Effort / Characteristics Non-Labored Spontaneous Respiratory Depth Normal Respiratory Pattern Regular Blood Pressure 165/92 H 166/71 H Blood Pressure [Left Arm] 154/73 H Blood Pressure Mean 116 102 Blood Pressure Mean [Left Arm] 100 Blood Pressure Position Sitting Blood Pressure Position [Left Arm] Pulse Oximetry 99 100 99 Oxygen Delivery Method Room Air Oxygen Flow Rate Sepsis Recent Fever Within 48 Hours Sepsis New/Unexplained Change in Mental Status Sepsis Action Taken by Nursing 01/30/22 19:53 01/30/22 20:23 Temperature 36.6 C 36.6 C Temperature Source Oral Oral Pulse Rate 77 84 Pulse Rate [Apical] Respiratory Rate 18 18 Respiratory Effort / Characteristics Respiratory Depth Respiratory Pattern Blood Pressure 154/78 H 190/90 H Blood Pressure [Left Arm] Blood Pressure Mean 103 123 Blood Pressure Mean [Left Arm] Blood Pressure Position Sitting Blood Pressure Position [Left Arm] Pulse Oximetry 99 98 Oxygen Delivery Method Oxygen Flow Rate 0 Sepsis Recent Fever Within 48 Hours Sepsis New/Unexplained Change in Mental Status Sepsis Action Taken by Nursing Laboratory Data Result diagrams: 01/30/22 17:47 01/30/22 17:47 Lab Results 01/30/22 01/30/22 01/30/22 Range/Units 17:46 17:47 17:47 WBC 9.21 (4.8-10.8) K/uL RBC 2.38 L (4.7-6.1) M/uL Hgb 7.7 L (14.0-18.0) g/dL Hct 23.1 L (42-52) % MCV 97.1 (80-100) fL MCH 32.4 (25-34) pg MCHC 33.3 (32-36) g/dL RDW Std Deviation 47.5 H (36.4-46.3) fL RDW Coeff of Jaime 13.4 (11.5-14.5) % Plt Count 220 (130-400) K/uL MPV 9.5 (7.4-10.4) fL Immature Gran % (Auto) 0.2 % Neut % (Auto) 79.9 % Lymph % (Auto) 11.3 % Sawyer % (Auto) 7.5 % Eos % (Auto) 0.8 % Baso % (Auto) 0.3 % Neut # (Auto) 7.36 H (1.4-6.5) K/uL Lymph # (Auto) 1.04 L (1.2-3.4) K/uL Sawyer # (Auto) 0.69 H (0.11-0.59) K/uL Eos # (Auto) 0.07 (0-0.5) K/uL Baso # (Auto) 0.03 (0-0.2) K/uL Immature Gran # (Auto) 0.02 (0.00-0.02) K/uL RBC Morphology Unremarkable PT (9.0-12.0) Seconds INR (0.9-1.1) APTT (21.0-31.0) Seconds PTT Ratio Sodium 135 L (136-145) mmol/L Potassium 6.3 H* (3.5-5.1) mmol/L Chloride 104 (98-107) mmol/L Carbon Dioxide 22 (21-32) mmol/L Anion Gap 9 (3-11) BUN 78 H (6-23) mg/dl Creatinine 3.53 H (0.6-1.4) mg/dl Est Cr Clr Drug Dosing 15.3 ml/min Est GFR ( Amer) 17.2 ml/min Est GFR (Non-Af Amer) 14.9 ml/min BUN/Creatinine Ratio 22.1 H (10-20) Glucose 192 H (70-99(Fasting)) mg/dl Calcium 8.3 L (8.5-10.1) mg/dl Total Bilirubin 0.5 (0.2-1.0) mg/dl AST 13 (13-39) U/L ALT 8 (7-52) U/L Alkaline Phosphatase 63 (34-104) U/L Troponin I High Sens 7.6 (0-20) pg/ml Total Protein 6.3 (6.0-8.3) gm/dl Albumin 3.5 (3.4-5.0) gm/dl Globulin 2.8 (2.5-4.0) gm/dl Albumin/Globulin Ratio 1.3 (0.9-2) Lipase 41 (11-82) U/L SARS-CoV-2, RNA, NAAT (NEGATIVE) Blood Type A Negative Antibody Screen NEGATIVE Crossmatch See Detail 01/30/22 01/30/22 Range/Units 17:47 17:53 WBC (4.8-10.8) K/uL RBC (4.7-6.1) M/uL Hgb (14.0-18.0) g/dL Hct (42-52) % MCV (80-100) fL MCH (25-34) pg MCHC (32-36) g/dL RDW Std Deviation (36.4-46.3) fL RDW Coeff of Jaime (11.5-14.5) % Plt Count (130-400) K/uL MPV (7.4-10.4) fL Immature Gran % (Auto) % Neut % (Auto) % Lymph % (Auto) % Sawyer % (Auto) % Eos % (Auto) % Baso % (Auto) % Neut # (Auto) (1.4-6.5) K/uL Lymph # (Auto) (1.2-3.4) K/uL Sawyer # (Auto) (0.11-0.59) K/uL Eos # (Auto) (0-0.5) K/uL Baso # (Auto) (0-0.2) K/uL Immature Gran # (Auto) (0.00-0.02) K/uL RBC Morphology PT 29.3 H (9.0-12.0) Seconds INR 2.9 H (0.9-1.1) APTT 30.3 (21.0-31.0) Seconds PTT Ratio 1.1 Sodium (136-145) mmol/L Potassium (3.5-5.1) mmol/L Chloride (98-107) mmol/L Carbon Dioxide (21-32) mmol/L Anion Gap (3-11) BUN (6-23) mg/dl Creatinine (0.6-1.4) mg/dl Est Cr Clr Drug Dosing ml/min Est GFR ( Amer) ml/min Est GFR (Non-Af Amer) ml/min BUN/Creatinine Ratio (10-20) Glucose (70-99(Fasting)) mg/dl Calcium (8.5-10.1) mg/dl Total Bilirubin (0.2-1.0) mg/dl AST (13-39) U/L ALT (7-52) U/L Alkaline Phosphatase (34-104) U/L Troponin I High Sens (0-20) pg/ml Total Protein (6.0-8.3) gm/dl Albumin (3.4-5.0) gm/dl Globulin (2.5-4.0) gm/dl Albumin/Globulin Ratio (0.9-2) Lipase (11-82) U/L SARS-CoV-2, RNA, NAAT NEGATIVE (NEGATIVE) Blood Type Antibody Screen Crossmatch Administered Medications Discontinued Medications Albuterol (Albuterol 0.083% Nebu Soln 3 Ml Vial) 2.5 mg NEB NOW STA; Protocol Stop: 01/30/22 18:44 Last Admin: 01/30/22 19:53 Dose: 2.5 mg Documented by: [id number] Dextrose (Dextrose 50% 50 Ml Syringe) 50 ml IV NOW ONE Stop: 01/30/22 18:44 Last Admin: 01/30/22 19:03 Dose: 50 ml Documented by: [id number] Pantoprazole Sodium 80 mg/ (Dextrose) 100 mls @ 400 mls/hr IV ONE STA Stop: 01/30/22 17:47 Last Infusion: 01/30/22 18:09 Dose: 0 mls/hr Documented by: [id number] Admin: 01/30/22 17:53 Dose: 400 mls/hr Documented by: [id number] Calcium Gluconate () 1,000 mg in 60 mls @ 240 mls/hr IV NOW STA Stop: 01/30/22 18:56 Last Infusion: 01/30/22 19:20 Dose: 0 mls/hr Documented by: [id number] Admin: 01/30/22 19:02 Dose: 240 mls/hr Documented by: [id number] Sodium Chloride (Nss 1000ml) 250 mls @ 999 mls/hr IV .Q16M ONE Stop: 01/30/22 18:58 Last Infusion: 01/30/22 19:30 Dose: 0 mls/hr Documented by: [id number] Admin: 01/30/22 19:13 Dose: 999 mls/hr Documented by: [id number] Phytonadione 10 mg/ Dextrose 51 mls @ 102 mls/hr IV ONE ONE Stop: 01/30/22 19:27 Last Admin: 01/30/22 19:48 Dose: 102 mls/hr Documented by: [id number] Prothrombin Complex Concent ( (Human) 2,000 units/ Syringe) 80 mls @ 10 mls/min IV NOW ONE; Protocol Stop: 01/30/22 19:37 Last Admin: 01/30/22 19:38 Dose: 10 mls/min Documented by: [id number] Insulin Human Regular (Novolin-R Insulin Per Unit Charge) 10 units IV NOW STA Stop: 01/30/22 18:43 Last Admin: 01/30/22 19:04 Dose: 10 units Documented by: [id number] Cosigned by: [id number] Sodium Bicarbonate (Sodium Bicarb 8.4% Inj 50 Meq/50 Ml Syr) 50 meq IV NOW STA Stop: 01/30/22 18:43 Last Admin: 01/30/22 19:03 Dose: 50 meq Documented by: [id number] Imaging Data Radiologist's Impression: Abdomen/Pelvis CT 01/30/22 17:31 CT OF THE ABDOMEN AND PELVIS WITHOUT CONTRAST CLINICAL HISTORY: Bloody stools. COMPARISON STUDY: CT of the abdomen and pelvis January 19, 2021. TECHNIQUE: Axial images of the abdomen and pelvis were obtained without IV contrast. Images were reviewed in the axial, sagittal, and coronal planes. Automated exposure control was utilized for the study. A dose lowering techniqu e was utilized adhering to the principles of ALARA. FINDINGS: No pneumatosis, free air or portal venous gas is present. No renal, ureteral or bladder calculi are present. There is no hydronephrosis or hydroureter. Bladder wall irregularity is similar to prior CT. Symmetric bilateral perinephric stranding is of questionable significance. Low-attenuation subcentimeter lesion arising from the upper pole the left kidney probably reflects a cyst. Evaluation of the abdomen and pelvis is suboptimal as unenhanced exam. Liver, spleen, adrenal glands and pancreas are unremarkable. Right upper quadrant stranding is noted. This appears to be centered on the second portion the duodenum. Possible duodenal wall thickening is noted. There is no extraluminal gas. There is no fluid collection to suggest abscess. There is no evidence for a bowel obstruction. Sensitivity for detection of mucosal lesions is diminished given CT technique. However, none are identified. There is no lymphadenopathy. Note is made of a 3.5 cm infrarenal abdominal aortic ane urysm which has mildly increased in caliber since CT of January 19, 2021. No evidence for rupture. No acute fracture within the visualized skeletal structures. There is a small fat-containing umbilical hernia. IMPRESSION: 1. Right upper quadrant stranding, likely centered on the second portion of the duodenum with duodenal wall thickening. This may reflect duodenitis. Acute cholecystitis or pancreatitis are considered less likely. No free air. 2. No bowel obstruction. No additional sites of bowel wall thickening on un enhanced exam. 3. Mild increase in caliber of a 3.5 cm infrarenal abdominal aortic aneurysm. ACT 112: Negative or not required by law. Electronically signed by: Marc Leroy M.D. 01/30/2022 7:10 PM Chest X-Ray 01/30/22 17:31 XR chest 1V portable CLINICAL HISTORY: dizzy TECHNIQUE: Single frontal radiograph of the chest was obtained. Comparison: Comparison is made to chest radiograph 10/30/2021 FINDINGS: Median sternotomy wires are unchanged. Dual-lead pacemaker is seen. Calcified aortic knob is seen. The lungs are clear. No evidence of pleural effusion or pneumothorax. IMPRESSION: No acute chest disease. ACT 112: Negative or not required by law. Electronically signed by: Andrez Burns M.D. 01/30/2022 5:[address] 01/30/22 17:31 CT OF THE HEAD WITHOUT CONTRAST CLINICAL HISTORY: dizzy COMPARISON STUDY: MRI of the brain June 16, 2019. Head CT October 14, 2019. TECHNIQUE: Helical axial images of the head were obtained without IV contrast. Automated exposure control was utilized for the study. A dose lowering technique was utilized adhering to the principles of ALARA. FINDINGS: No acute intracranial hemorrhage, midline shift or mass effect is present. White matter hypodensities are unchanged. There is extensive intracranial vascular calcification. The ventricular system is unremarkable. The basal cisterns are patent. No extra-axial collections are present. There are no findings to suggest acute dural sinus thrombosis or acute territorial infarct. No significant calvarial abnormalities are present. Visualized portions of the sinuses and mastoid air cells are clear. IMPRESSION: No acute intracranial findings. No change in appearance of the brain. ACT 112: Negative or not required by law. Electronically signed by: Marc Leroy M.D. 01/30/2022 6:45 PM Discharge Plan Visit Data Chief Complaint: GI Bleed Stated Complaint: blood in stool ED Provider: Sage Reza Discharge Problem: Dizziness, CKD (chronic kidney disease) stage 4, GFR 15-29 ml/min, Acute GI bleeding, ABLA (acute blood loss anemia), Hyperkalemia Patient Disposition: Being Evaluated by Hospitalist Forms Stand Alone Forms: [facility] Prescriptions Prescriptions: No Action atorvastatin 80 mg tablet 80 mg PO DAILY RF: 0 amiodarone 200 mg tablet 200 mg PO DAILY RF: 0 metoprolol succinate 50 mg tablet extended release 24 hr 50 mg PO BID RF: 0 ondansetron HCl 4 mg tablet 4 mg PO Q12 PRN (Reason: Nausea) RF: 0 amlodipine 5 mg tablet 5 mg PO DAILY RF: 0 aspirin 81 mg Tablet,Delayed Release (Dr/Ec) 81 mg PO DAILY RF: 0 glipizide 2.5 mg tablet extended release 24 hr 2.5 mg PO DAILY RF: 0 pantoprazole 40 mg tablet,delayed release (DR/EC) 40 mg PO DAILY RF: 0 nitroglycerin [Nitrostat] 0.4 mg Tablet, Sublingual 0.4 mg sublingual DIRECTED RF: 0 diphenhydramine-acetaminophen [Tylenol PM Extra Strength] 25-500 mg Tablet 1 tab PO HS PRN (Reason: Sleep) RF: 0 dutasteride 0.5 mg capsule 0.5 mg PO DAILY RF: 0 warfarin [Jantoven] 3 mg tablet See Rx Instructions .ROUTE .COMPLEX RF: 0 polyethylene glycol 3350 [Miralax] 17 gram Powder In Packet 17 g PO DAILY RF: 0 docusate sodium 100 mg Tablet 100 mg PO BID RF: 0 Referrals Referrals: Eulogio Lugo, [Primary Care Provider] -
--- NOTE | 2022-01-30 17:50 | XRay Report ---
XR chest 1V portable CLINICAL HISTORY: dizzy TECHNIQUE: Single frontal radiograph of the chest was obtained. Comparison: Comparison is made to chest radiograph 10/30/2021 FINDINGS: Median sternotomy wires are unchanged. Dual-lead pacemaker is seen. Calcified aortic knob is seen. Th e lungs are clear. No evidence of pleural effusion or pneumothorax. IMPRESSION: No acute chest disease. ACT 112: Negative or not required by law. Electronically signed by: Andrez Burns M.D. 01/30/2022 5:49 PM
[2022-01-30 18:11] LABS: Basophils # (auto) 0.03 K/uL (0-0.2); Basophils % (auto) 0.3 %; Eosinophils # (auto) 0.07 K/uL (0-0.5); Eosinophils % (auto) 0.8 %; Hematocrit (blood only) 23.1 % (42-52); Hemoglobin 7.7 g/dL (14.0-18.0); Immature Granulocytes # (auto) 0.02 K/uL (0.00-0.02); Immature Granulocytes % (auto) 0.2 %; Lymphocytes # (auto) 1.04 K/uL (1.2-3.4); Lymphocytes % (auto) 11.3 %; Mean Corpuscular Hemoglobin 32.4 pg (25-34); Mean Corpuscular Hgb Conc 33.3 g/dL (32-36); Mean Corpuscular Volume 97.1 fL (80-100); Mean Platelet Volume 9.5 fL (7.4-10.4); Monocytes # (auto) 0.69 K/uL (0.11-0.59); Monocytes % (auto) 7.5 %; Neutrophils # (auto) 7.36 K/uL (1.4-6.5); Neutrophils % (auto) 79.9 %; Platelet Count 220 K/uL (130-400); RDW Coefficient of Variation 13.4 % (11.5-14.5); RDW Standard Deviation 47.5 fL (36.4-46.3); Red Blood Count 2.38 M/uL (4.7-6.1); White Blood Count 9.21 K/uL (4.8-10.8)
[2022-01-30 18:16] LABS: INR 2.9 (0.9-1.1); Partial Thromboplastin Ratio 1.1; Partial Thromboplastin Time 30.3 Seconds (21.0-31.0); Prothrombin Time 29.3 Seconds (9.0-12.0)
[2022-01-30 18:37] LABS: Albumin Globulin Ratio 1.3 (0.9-2); Albumin Level 3.5 gm/dl (3.4-5.0); BUN Creatinine Ratio 22.1 (10-20); Bilirubin,Total 0.5 mg/dl (0.2-1.0); Calcium 8.3 mg/dl (8.5-10.1); Creatinine Clr Calc Pharmacy 15.3 ml/min; Est GFR (African American) 17.2 ml/min; Est GFR (Non-African American) 14.9 ml/min; Globulin 2.8 gm/dl (2.5-4.0); Potassium 6.3 mmol/L (3.5-5.1); Total Protein 6.3 gm/dl (6.0-8.3); Troponin I High Sensitivity 7.6 pg/ml (0-20)
[2022-01-30] MEDS ORDERED: SODIUM BICARB 8.4% INJ 50 MEQ/50 ML SYR IV STA (18:42)
[2022-01-30] MEDS ORDERED: NovoLIN-R INSULIN PER UNIT CHARGE IV STA (18:42)
[2022-01-30] MEDS ORDERED: CALCIUM GLUCONATE 1,000 MG/60 ML BAG IV STA (18:42)
[2022-01-30] MEDS ORDERED: SODIUM CHLORIDE 0.9% 1000ML 250 ML IV ONE (18:43)
[2022-01-30] MEDS ORDERED: DEXTROSE 50% 50 ML SYRINGE IV ONE (18:43)
[2022-01-30] MEDS ORDERED: ALBUTEROL 0.083% NEBU SOLN 3 ML VIAL NEB STA (18:43)
[2022-01-30] MEDS ORDERED: SODIUM CHLORIDE 0.9% 250 ML IV PRN (18:43)
[2022-01-30 18:45] LABS: RBC Morphology Unremarkable
--- NOTE | 2022-01-30 18:47 | CT Scan Report ---
CT OF THE HEAD WITHOUT CONTRAST CLINICAL HISTORY: dizzy COMPARISON STUDY: MRI of the brain June 16, 2019. Head CT October 14, 2019. TECHNIQUE: Helical axial images of the head were obtained without IV contrast. Automated exposure con trol was utilized for the study. A dose lowering technique was utilized adhering to the principles o f ALARA. FINDINGS: No acute intracranial hemorrhage, midline shift or mass effect is present. White matter hyp odensities are unchanged. There is extensive intracranial vascular calcification. The ventricular sys tem is unremarkable. The basal cisterns are patent. No extra-axial collections are present. There are no findings to suggest acute dural sinus thrombosis or acute territorial infarct. No significant jorge alberto varial abnormalities are present. Visualized portions of the sinuses and mastoid air cells are clear. IMPRESSION: No acute intracranial findings. No change in appearance of the brain. ACT 112: Negative or not required by law. Electronically signed by: Marc Leroy M.D. 01/30/2022 6:45 PM
[2022-01-30] MEDS ORDERED: PHYTONADIONE 10 MG in DEXTROSE 5% 50 ML IV ONE (18:58)
--- NOTE | 2022-01-30 19:12 | CT Scan Report ---
CT OF THE ABDOMEN AND PELVIS WITHOUT CONTRAST CLINICAL HISTORY: Bloody stools. COMPARISON STUDY: CT of the abdomen and pelvis January 19, 2021. TECHNIQUE: Axial images of the abdomen and pelvis were obtained without IV contrast. Images were revi ewed in the axial, sagittal, and coronal planes. Automated exposure control was utilized for the gabino dy. A dose lowering technique was utilized adhering to the principles of ALARA. FINDINGS: No pneumatosis, free air or portal venous gas is present. No renal, ureteral or bladder jorge alberto culi are present. There is no hydronephrosis or hydroureter. Bladder wall irregularity is similar to prior CT. Symmetric bilateral perinephric stranding is of questionable significance. Low-attenuation subcentimeter lesion arising from the upper pole the left kidney probably reflects a cyst. Evaluation of the abdomen and pelvis is suboptimal as unenhanced exam. Liver, spleen, adrenal glands and pancre as are unremarkable. Right upper quadrant stranding is noted. This appears to be centered on the se[place] nd portion the duodenum. Possible duodenal wall thickening is noted. There is no extraluminal gas. Th ere is no fluid collection to suggest abscess. There is no evidence for a bowel obstruction. Sensitiv ity for detection of mucosal lesions is diminished given CT technique. However, none are identified. There is no lymphadenopathy. Note is made of a 3.5 cm infrarenal abdominal aortic aneurysm which has mildly increased in caliber since CT of January 19, 2021. No evidence for rupture. No acute fracture wit hin the visualized skeletal structures. There is a small fat-containing umbilical hernia. IMPRESSION: 1. Right upper quadrant stranding, likely centered on the second portion of the duodenum with duodena l wall thickening. This may reflect duodenitis. Acute cholecystitis or pancreatitis are considered le ss likely. No free air. 2. No bowel obstruction. No additional sites of bowel wall thickening on unenhanced exam. 3. Mild increase in caliber of a 3.5 cm infrarenal abdominal aortic aneurysm. ACT 112: Negative or not required by law. Electronically signed by: Marc Leroy M.D. 01/30/2022 7:10 PM
[2022-01-30] MEDS ORDERED: PROTHROMBIN COMP CONC- KCENTRA 2,000 UNITS in SYRINGE 0 ML IV ONE (19:30)
[2022-01-30] MEDS ORDERED: METOPROLOL SUCC 50MG EXT REL TAB PO STA (19:48)
[2022-01-30] MEDS ORDERED: SODIUM CHLORIDE 0.9% 1000ML 1,000 ML IV ONE (19:49)
--- NOTE | 2022-01-30 20:05 | History & Physical Report ---
Date of Service January 30, 2022 Assessment & Plan (1) Rectal bleeding: (2) Anemia: (3) Hyperkalemia: (4) Tachy-yasmine syndrome: (5) CAD (coronary artery disease): (6) PAF (paroxysmal atrial fibrillation): (7) CKD (chronic kidney disease) stage 4, GFR 15-29 ml/min: (8) HTN (hypertension): (9) HLD (hyperlipidemia): Plan: HPI, ROS, PE, med rec completed by Radha Cao PA-C. Assessment and Plan per Dr Knox. See addendum. History of Present Illness Chief Complaint: dizziness Primary Care Provider: Eulogio Lugo DO Patient is 86-year-old male with PMH DM II, CAD s/p CABG, tachybradycardia syndrome, s/p pacemaker, atrial flutter, paroxysmal atrial fibrillation anticoagulated on warfarin, HTN, HLD, CKD IV, BPH, GERD presented to ER with complaint of dizziness and unsteadiness. Patient states today went out for lunch and had meatball sub. He states came home and had sudden urge to have BM and had BM described as red and dark. Had additional BM that red in coloration and reports toilet water was red. He states felt lightheaded. He called a friend who attempted to walk him to car however patient felt too lightheaded and had to sit down and EMS transported to hospital. Patient unsure if had colonoscopy in past. Denies history of rectal bleeding. Patient reports in past was on diuretic and potassium supplement. He knows diuretic was discontinued and potassium was also but patient is unsure if he has continued to take potassium. Denies fever/chills, diaphoresis, N/V, SOLOMON, syncope, vision changes, neck pain, CP, SOB, orthopnea, palpitations, cough, sore throat, choking, otalgia, rhinorrhea, abdominal pain, paresthesias, extremity weakness, extremity edema, rashes, urinary symptoms. In ER vitals stable. H/H: 7.7/23 (hgb: 8.9 in 10/2021), INR: 2.9, K: 6.3. Cr: 3.5 Allergies Allergy/AdvReac Type Severity Reaction Status Date / Time No Known Allergies Allergy Unverified 01/30/22 20:03 Home Medications Medication Instructions Recorded Confirmed Type amiodarone 200 mg tablet 200 mg PO DAILY 10/30/21 01/30/22 History amlodipine 5 mg tablet 5 mg PO DAILY 10/30/21 01/30/22 History aspirin 81 mg tablet,delayed 81 mg PO DAILY 10/30/21 01/30/22 History release atorvastatin 80 mg tablet 80 mg PO DAILY 10/30/21 01/30/22 History diphenhydramine 25 1 tab PO HS PRN 10/30/21 01/30/22 History mg-acetaminophen 500 mg tablet (Tylenol PM Extra Strength) dutasteride 0.5 mg capsule 0.5 mg PO DAILY 10/30/21 01/30/22 History glipizide 2.5 mg tablet, extended 2.5 mg PO DAILY 10/30/21 01/30/22 History release 24 hr metoprolol succinate 50 mg 50 mg PO BID 10/30/21 01/30/22 History tablet,extended release 24 hr nitroglycerin 0.4 mg sublingual 0.4 mg SUBLINGUAL DIRECTED 10/30/21 01/30/22 History tablet (Nitrostat) ondansetron HCl 4 mg tablet 4 mg PO Q12 PRN 10/30/21 01/30/22 History pantoprazole 40 mg tablet,delayed 40 mg PO DAILY 10/30/21 01/30/22 History release warfarin 3 mg tablet (Jantoven) See Rx Instructions .ROUTE .COMPLEX 10/31/21 01/30/22 History docusate sodium 100 mg tablet 100 mg PO BID 01/30/22 01/30/22 History polyethylene glycol 3350 17 gram 17 g PO DAILY 01/30/22 01/30/22 History oral powder packet (Miralax) Past Med/Surg History Medical History Benign localized hyperplasia of prostate with urinary obstruction CAD (coronary artery disease) Chronic prostatitis CKD (chronic kidney disease) stage 4, GFR 15-29 ml/min Diabetes mellitus History of supraventricular tachycardia HLD (hyperlipidemia) HTN (hypertension) Hyperparathyroidism PAF (paroxysmal atrial fibrillation) SVT (supraventricular tachycardia) T2DM (type 2 diabetes mellitus) Surgical History History of cataract extraction History of prostate surgery Hx of CABG hx of cabg x 3 2002 Family History Father , 72 Cancer Coronary heart disease Social History (Updated 01/30/22 @ 20:57 by Radha Cao PA-C) Smoking Status: Never smoker Tobacco Type: Pipe Second Hand Exposure: No; Hx Alcohol Use: Yes Alcohol type: beer Alcohol type Comment: wednesday will have 3 beers. Sun 1-2 beers Hx Substance Use: No Preferred Language: Guinean Communication Ability: Effective Glove Boarder Required: No Beliefs That Will Affect Care: None marital status: / Current Living Situation: Alone current occupational status: employed How many Children do You have: 1 Feels Safe at Home: Yes Assistive Devices: Glasses and Walker Review of Systems Review of Systems: All systems reviewed & are unremarkable except as noted in HPI & below Physical Exam Physical Exam: General: no distress, WDWN Head: normocephalic, atraumatic Eyes: PERRL, EOM's intact, conjunctiva non-injected, anicteric ENT: normal inspection external ears, nose, mucous membranes moist Neck: supple, trachea midline Lungs: clear, no respiratory distress, no wheezing/rhonchi/rales CV: RRR, no murmur, no pretibial edema Abd: normal BS, soft, non-tender Ext: no cyanosis, no calf tenderness Neuro: A&O x 3, no focal deficits noted, normal affect Skin: warm, dry, pale Results & Data Results & Data ([facility]) Vital Signs (Past 12 Hours) Vital Signs Temp Pulse Pulse Resp BP BP Pulse Ox 01/30/22 19:53 36.6 C 77 18 154/78 H 99 01/30/22 19:38 36.7 C 67 20 166/71 H 99 01/30/22 19:17 36.8 C 76 20 165/92 H 100 01/30/22 19:07 62 16 154/73 H 99 01/30/22 18:09 70 16 119/59 L 99 01/30/22 17:35 100 01/30/22 17:28 36.8 C 78 16 130/70 100 Laboratory Results Short CBC 01/30/22 01/30/22 Range/Units 17:47 17:47 WBC 9.21 (4.8-10.8) K/uL Hgb 7.7 L (14.0-18.0) g/dL Hct 23.1 L (42-52) % Plt Count 220 (130-400) K/uL Creatinine 3.53 H (0.6-1.4) mg/dl BMP 01/30/22 17:47 Sodium 135 L Potassium 6.3 H* Chloride 104 Carbon Dioxide 22 BUN 78 H Creatinine 3.53 H Glucose 192 H Calcium 8.3 L Liver Function 01/30/22 Range/Units 17:47 Total Bilirubin 0.5 (0.2-1.0) mg/dl AST 13 (13-39) U/L ALT 8 (7-52) U/L Alkaline Phosphatase 63 (34-104) U/L Albumin 3.5 (3.4-5.0) gm/dl Diagnostic Findings Abdomen/Pelvis CT 01/30/22 17:31 CT OF THE ABDOMEN AND PELVIS WITHOUT CONTRAST CLINICAL HISTORY: Bloody stools. COMPARISON STUDY: CT of the abdomen and pelvis January 19, 2021. TECHNIQUE: Axial images of the abdomen and pelvis were obtained without IV contrast. Images were reviewed in the axial, sagittal, and coronal planes. Automated exposure control was utilized for the study. A dose lowering technique was utilized adhering to the principles of ALARA. FINDINGS: No pneumatosis, free air or portal venous gas is present. No renal, ureteral or bladder calculi are present. There is no hydronephrosis or hydroureter. Bladder wall irregularity is similar to prior CT. Symmetric bilateral perinephric stranding is of questionable significance. Low-attenuation subcentimeter lesion arising from the upper pole the left kidney probably reflects a cyst. Evaluation of the abdomen and pelvis is suboptimal as unenhanced exam. Liver, spleen, adrenal glands and pancreas are unremarkable. Right upper quadrant stranding is noted. This appears to be centered on the second portion the duodenum. Possible duodenal wall thickening is noted. There is no extraluminal gas. There is no fluid collection to suggest abscess. There is no evidence for a bowel obstruction. Sensitivity for detection of mucosal lesions is diminished given CT technique. However, none are identified. There is no lymphadenopathy. Note is made of a 3.5 cm infrarenal abdominal aortic a neurysm which has mildly increased in caliber since CT of January 19, 2021. No evidence for rupture. No acute fracture within the visualized skeletal structures. There is a small fat-containing umbilical hernia. IMPRESSION: 1. Right upper quadrant stranding, likely centered on the second portion of the duodenum with duodenal wall thickening. This may reflect duodenitis. Acute cholecystitis or pancreatitis are considered less likely. No free air. 2. No bowel obstruction. No additional sites of bowel wall thickening on unenhanced exam. 3. Mild increase in caliber of a 3.5 cm infrarenal abdominal aortic aneurysm. ACT 112: Negative or not required by law. Electronically signed by: Marc Leroy M.D. 01/30/2022 7:10 PM Chest X-Ray 01/30/22 17:31 XR chest 1V portable CLINICAL HISTORY: dizzy TECHNIQUE: Single frontal radiograph of the chest was obtained. Comparison: Comparison is made to chest radiograph 10/30/2021 FINDINGS: Median sternotomy wires are unchanged. Dual-lead pacemaker is seen. Calcified aortic knob is seen. The lungs are clear. No evidence of pleural effusion or pneumothorax. IMPRESSION: No acute chest disease. ACT 112: Negative or not required by law. Electronically signed by: Andrez Burns M.D. 01/30/2022 5:[address] 01/30/22 17:31 CT OF THE HEAD WITHOUT CONTRAST CLINICAL HISTORY: dizzy COMPARISON STUDY: MRI of the brain June 16, 2019. Head CT October 14, 2019. TECHNIQUE: Helical axial images of the head were obtained without IV contrast. Automated exposure control was utilized for the study. A dose lowering technique was utilized adhering to the principles of ALARA. FINDINGS: No acute intracranial hemorrhage, midline shift or mass effect is pre sent. White matter hypodensities are unchanged. There is extensive intracranial vascular calcification. The ventricular system is unremarkable. The basal cisterns are patent. No extra-axial collections are present. There are no findings to suggest acute dural sinus thrombosis or acute territorial infarct. No significant calvarial abnormalities are present. Visualized portions of the sinuses and mastoid air cells are clear. IMPRESSION: No acute intracranial findings. No change in appearance of the brain. ACT 112: Negative or not required by law. Electronically signed by: Marc Leroy M.D. 01/30/2022 6:45 PM Supervising Physician Co-Signing Physician Notes IM ATTENDING : Patient seen and examined. History obtained from patient, patient friend,and records. Preceding documentation by Ms. Radha Cao PA-C reviewed. In addition, patient friend noted dark-colored emesis at patient's home. FINAL ASSESSMENT AND PLAN as follows : Symptomatic anemia secondary to UGI B Hemoglobin drop from baseline Possible gastritis given stomach upset symptoms In the setting of Coumadin coagulopathy status post reversal at the ER, hx SSS status post PPM Recurrent hyperkalemia secondary to chronic kidney dysfunction hx CAD status post CABG hypertension, elevated secondary to illness hyperlipidemia on statin Rx DM2 on oral medications, well-controlled as of recent hemoglobin A1c of 6.7 last October 2021 Medical telemetry Transfuse PRBC if hemoglobin greater than 8, hx CAD Appropriate to hold aspirin and Coumadin for now IV PPI GI consult Re: UGI B Recheck serum potassium after initial intervention at the ER Nephrology consult if with recurrence ISS BG goal 1 10-1 40 DVT prophylaxis. SCDs while Coumadin on hold while INR less than 2 Full code Patient requessting for son to be updated of plan of care. Mr. Robbie Mata, contact #[phone]. Text document was generated using Smove voice recognition software. It may contain grammatical or spelling errors. Kindly contact undersigned for clarification of any documentation item in question.
[2022-01-30] MEDS: PANTOprazole 40 MG in DEXTROSE 5% 100 ML IV SCH (20:28)
[2022-01-30] MEDS ORDERED: traMADol HCL 50 MG TABLET PO PRN (23:41)
[2022-01-30] MEDS ORDERED: ACETAMINOPHEN 325 MG TAB PO PRN (23:41)
[2022-01-30] MEDS ORDERED: GLUCAGON FOR INJ 1 MG VIAL SQ PRN (23:41)
[2022-01-30] MEDS ORDERED: NITROGLYCERIN SL 0.4 MG/TAB TAB SL PRN (23:41)
[2022-01-30] MEDS ORDERED: GLUCOSE 10 TABS/TUBE PO PRN (23:41)
[2022-01-30] MEDS ORDERED: CARBOHYDRATES FOR HYPOGLYCEMIA PO PRN (23:41)
[2022-01-30] MEDS ORDERED: PROMETHAZINE HCL 6.25 MG in SODIUM CHLORIDE 0.9% 50 ML IV PRN (23:41)
[2022-01-30] MEDS ORDERED: DEXTROSE 50% 50 ML SYRINGE IV PRN (23:41)
[2022-01-30] MEDS ORDERED: GLUCOSE 40% GEL 15 GM TUBE PO PRN (23:41)
[2022-01-30] MEDS: INSULIN ASPART PER UNIT SC SCH (23:57)
[2022-01-31] MEDS ORDERED: SODIUM CHLORIDE 0.9% 1000ML 1,000 ML IV SCH ×2 (00:05→09:00)
[2022-01-31] MEDS: PANTOprazole 40 MG in DEXTROSE 5% 100 ML IV SCH ×5 (00:28→20:09)
[2022-01-31 01:03] LABS: BUN Creatinine Ratio 22.4 (10-20); Calcium 8.4 mg/dl (8.5-10.1); Creatinine Clr Calc Pharmacy 16.1 ml/min; Est GFR (African American) 18.4 ml/min; Est GFR (Non-African American) 15.8 ml/min; Potassium 4.9 mmol/L (3.5-5.1)
[2022-01-31] MEDS: INSULIN ASPART PER UNIT SC SCH ×4 (05:29→20:11)
[2022-01-31 06:38] LABS: Basophils # (auto) 0.03 K/uL (0-0.2); Basophils % (auto) 0.4 %; Eosinophils # (auto) 0.13 K/uL (0-0.5); Eosinophils % (auto) 1.7 %; Hematocrit (blood only) 22.4 % (42-52); Hemoglobin 7.6 g/dL (14.0-18.0); Immature Granulocytes # (auto) 0.01 K/uL (0.00-0.02); Immature Granulocytes % (auto) 0.1 %; Lymphocytes # (auto) 1.55 K/uL (1.2-3.4); Lymphocytes % (auto) 20.8 %; Mean Corpuscular Hemoglobin 31.8 pg (25-34); Mean Corpuscular Hgb Conc 33.9 g/dL (32-36); Mean Corpuscular Volume 93.7 fL (80-100); Mean Platelet Volume 9.7 fL (7.4-10.4); Monocytes # (auto) 0.94 K/uL (0.11-0.59); Monocytes % (auto) 12.6 %; Neutrophils # (auto) 4.79 K/uL (1.4-6.5); Neutrophils % (auto) 64.4 %; Platelet Count 166 K/uL (130-400); RDW Coefficient of Variation 14.9 % (11.5-14.5); RDW Standard Deviation 51.2 fL (36.4-46.3); Red Blood Count 2.39 M/uL (4.7-6.1); White Blood Count 7.45 K/uL (4.8-10.8)
[2022-01-31 06:54] LABS: BUN Creatinine Ratio 22.4 (10-20); Calcium 8.3 mg/dl (8.5-10.1); Creatinine Clr Calc Pharmacy 16.8 ml/min; Est GFR (African American) 19.3 ml/min; Est GFR (Non-African American) 16.6 ml/min; Potassium 4.8 mmol/L (3.5-5.1)
[2022-01-31 06:55] LABS: INR 1.1 (0.9-1.1); Prothrombin Time 11.4 Seconds (9.0-12.0)
[2022-01-31] MEDS: amLODIPine BESYLATE 5 MG TAB PO SCH (07:57)
[2022-01-31] MEDS: AMIODARONE 200 MG TAB PO SCH (07:57)
[2022-01-31] MEDS: ATORVASTATIN 40 MG TAB PO SCH (07:57)
[2022-01-31] MEDS: METOPROLOL SUCC 50MG EXT REL TAB PO SCH ×2 (07:57→20:12)
[2022-01-31] MEDS ORDERED: SODIUM CHLORIDE 0.9% 250 ML IV PRN (08:01)
--- NOTE | 2022-01-31 10:15 | Gastrointestinal Consultation ---
Date of Consultation January 31, 2022 Assessment & Plan (1) Rectal bleeding: BRBPR in setting of stable hemodynamics after eating. Differential includes those of a lower GI bleed, infection, ischemia, diverticular. No signs of continued ongoing GI bleeding. VSS Recommend stool cultures to include c-diff and stool culture Supportive care Timing of colonoscopy to be determined, assuming stays stable, can be arranged for expedited outpt vs inpt Ok to advance diet to clears INR has been corrected, would continue to hold coumadin Agree with transfusion Call with questions History of Present Illness Reason for Consultation: Rectal bleeding Attending Physician: Leona Guthrie MD History of Present Illness This is a 86-year-old male with PMH DM II, CAD s/p CABG, tachybradycardia syndrome, s/p pacemaker, atrial flutter, paroxysmal atrial fibrillation anticoagulated on warfarin, HTN, HLD, CKD IV, BPH, GERD p weakness. After eating lunch, He states came home and had sudden urge to have BM and had BM described as red and dark. Had additional BM that red in coloration and reports toilet water was red. He states felt lightheaded. He called a friend who attempted to walk him to car however patient felt too lightheaded and had to sit down and EMS transported to hospital. Patient unsure if had colonoscopy in past. Denies history of rectal bleeding. Patient reports in past was on diuretic and potassium supplement. He knows diuretic was discontinued and potassium was also but patient is unsure if he has continued to take potassium. Denies fever/chills, diaphoresis, N/V, SOLOMON, syncope, vision changes, neck pain, CP, SOB, orthopnea, palpitations, cough, sore throat, choking, otalgia, rhinorrhea, abdominal pain, paresthesias, extremity weakness, extremity edema, rashes, urinary symptoms. On presentation here his VS were stable, Hb noted to 7.7 with a baseline of 9. Bun always elevated due to CKD. One BM last night that per patient is normal and no signs of bleeding. Still works as an accountant assistant. No signs of liver disease. CT OF THE ABDOMEN AND PELVIS WITHOUT CONTRAST CLINICAL HISTORY: Bloody stools. COMPARISON STUDY: CT of the abdomen and pelvis January 19, 2021. TECHNIQUE: Axial images of the abdomen and pelvis were obtained without IV contrast. Images were reviewed in the axial, sagittal, and coronal planes. Automated exposure control was utilized for the study. A dose lowering technique was utilized adhering to the principles of ALARA. FINDINGS: No pneumatosis, free air or portal venous gas is present. No renal, ureteral or bladder calculi are present. There is no hydronephrosis or hydroureter. Bladder wall irregularity is similar to prior CT. Symmetric bilateral perinephric stranding is of questionable significance. Low-attenuation subcentimeter lesion arising from the upper pole the left kidney probably reflects a cyst. Evaluation of the abdomen and pelvis is suboptimal as unenhanced exam. Liver, spleen, adrenal glands and pancreas are unremarkable. Right upper quadrant stranding is noted. This appears to be centered on the second portion the duodenum. Possible duodenal wall thickening is noted. There is no extraluminal gas. There is no fluid collection to suggest abscess. There is no evidence for a bowel obstruction. Sensitivity for detection of mucosal lesions is diminished given CT technique. However, none are identified. There is no lymphadenopathy. Note is made of a 3.5 cm infrarenal abdominal aortic aneurysm which has mildly increased in caliber since CT of January 19, 2021. No evidence for rupture. No acute fracture within the visualized skeletal structures. There is a small fat-containing umbilical hernia. IMPRESSION: 1. Right upper quadrant stranding, likely centered on the second portion of the duodenum with duodenal wall thickening. This may reflect duodenitis. Acute cholecystitis or pancreatitis are considered less likely. No free air. 2. No bowel obstruction. No additional sites of bowel wall thickening on unenhanced exam. 3. Mild increase in caliber of a 3.5 cm infrarenal abdominal aortic aneurysm. Allergies Allergy/AdvReac Type Severity Reaction Status Date / Time No Known Allergies Allergy Unverified 01/30/22 20:03 Home Medications Medication Instructions Recorded Confirmed Type amiodarone 200 mg tablet 200 mg PO DAILY 10/30/21 01/30/22 History amlodipine 5 mg tablet 5 mg PO DAILY 10/30/21 01/30/22 History aspirin 81 mg tablet,delayed 81 mg PO DAILY 10/30/21 01/30/22 History release atorvastatin 80 mg tablet 80 mg PO DAILY 10/30/21 01/30/22 History diphenhydramine 25 1 tab PO HS PRN 10/30/21 01/30/22 History mg-acetaminophen 500 mg tablet (Tylenol PM Extra Strength) dutasteride 0.5 mg capsule 0.5 mg PO DAILY 10/30/21 01/30/22 History glipizide 2.5 mg tablet, extended 2.5 mg PO DAILY 10/30/21 01/30/22 History release 24 hr metoprolol succinate 50 mg 50 mg PO BID 10/30/21 01/30/22 History tablet,extended release 24 hr nitroglycerin 0.4 mg sublingual 0.4 mg SUBLINGUAL DIRECTED 10/30/21 01/30/22 History tablet (Nitrostat) ondansetron HCl 4 mg tablet 4 mg PO Q12 PRN 10/30/21 01/30/22 History pantoprazole 40 mg tablet,delayed 40 mg PO DAILY 10/30/21 01/30/22 History release warfarin 3 mg tablet (Jantoven) See Rx Instructions .ROUTE .COMPLEX 10/31/21 01/30/22 History docusate sodium 100 mg tablet 100 mg PO BID 01/30/22 01/30/22 History polyethylene glycol 3350 17 gram 17 g PO DAILY 01/30/22 01/30/22 History oral powder packet (Miralax) Patient History Medical History Benign localized hyperplasia of prostate with urinary obstruction CAD (coronary artery disease) Chronic prostatitis CKD (chronic kidney disease) stage 4, GFR 15-29 ml/min Diabetes mellitus History of supraventricular tachycardia HLD (hyperlipidemia) HTN (hypertension) Hyperparathyroidism PAF (paroxysmal atrial fibrillation) SVT (supraventricular tachycardia) T2DM (type 2 diabetes mellitus) Surgical History History of cataract extraction History of prostate surgery Hx of CABG hx of cabg x 3 2002 Family History Father , 72 Cancer Coronary heart disease Social History Smoking Status: Never smoker Tobacco Type: Pipe Second Hand Exposure: No; Hx Alcohol Use: Yes Alcohol type: beer Alcohol type Comment: wednesday will have 3 beers. Sun 1-2 beers Hx Substance Use: No Preferred Language: Macedonian Communication Ability: Effective Manufacturing Lab Technician Required: No Beliefs That Will Affect Care: None marital status: / Current Living Situation: Alone current occupational status: employed How many Children do You have: 1 Other Information That Helps Us Care for You: No Feels Safe at Home: Yes Assistive Devices: Glasses and Walker Review of Systems Review of Systems: negative except for stated as above Physical Exam Physical Exam: General: no distress, WDWN Head: normocephalic, atraumatic Eyes: PERRL, EOM's intact, conjunctiva non-injected, anicteric ENT: normal inspection external ears, nose, mucous membranes moist Neck: supple, trachea midline Lungs: clear, no respiratory distress, no wheezing/rhonchi/rales CV: RRR, no murmur, no pretibial edema Abd: normal BS, soft, non-tender Ext: no cyanosis, no calf tenderness Neuro: A&O x 3, no focal deficits noted, normal affect Skin: warm, dry, pale Results & Data ([facility]) Vital Signs (Past 12 Hours) Vital Signs Temp Pulse Pulse Pulse Resp BP BP 01/31/22 07:24 36.8 C 61 20 154/57 H 01/31/22 03:02 36.8 C 63 18 01/31/22 00:34 71 01/30/22 23:04 64 18 145/69 H 01/30/22 22:30 69 18 134/63 BP Pulse Ox 01/31/22 07:24 97 01/31/22 03:02 145/57 H 99 01/31/22 00:34 01/30/22 23:04 98 01/30/22 22:30 97
[2022-01-31] MEDS ORDERED: Nursing to Pharmacy Communication SCH (12:30)
--- NOTE | 2022-01-31 13:26 | Hospitalist Progress Note ---
Date of Service January 31, 2022 Assessment & Plan (1) Rectal bleeding: Plan: 86-year-old man with PMH of DM2, CAD status post CABG, tachybradycardia syndrome, status post pacemaker, atrial flutter, paroxysmal A. fib on warfarin, HTN, HLD, CKD stage IV, BPH, GERD presented to the ED 01/30 with complaint of dizziness and unsteadiness after an episode of blood per rectum. Is being managed for the following: #. Symptomatic anemia in the setting of Coumadin use: Status post reversal at ER. #. Likely lower GI bleed Patient presented to the ED with complaint of dizziness and unsteadiness after an episode of blood per rectum, patient also reports vomiting x1 (meatballs/pasta sauce) prior to arrival. Blood in the stool was dark red initially and then was bright red blood per patient. Admitting CTAP: Suggestive of duodenitis. Admitting hemoglobin of 7.7, status post 1 unit PRBC, a.m. hemoglobin 7.6, patient receiving another unit of blood. Transfuse PRBC if hemoglobin less than 8, history of CAD Follow-up hemoglobin after transfusion and in p.m. Continue with IV pantoprazole given duodenitis in CTAP GI evaluated, recommends stool culture including C. difficile, okay to advance diet to clears. Continue to hold Coumadin. Timing of colonoscopy to be determined. Continue supportive care. Coumadin/aspirin on hold. #. Recurrent hyperkalemia secondary to chronic kidney dysfunction Admitting potassium of 6.3 s/p Potassium lowering cocktail in ER Potassium today 4.8, consider nephrology if with recurrence. Creatinine at admission 3.35, which seems to be his new baseline. BMP in a.m., continue to follow. Low potassium diet. #. Other chronic medical conditions: CAD status post CABG, A. fib on Coumadin, HTN, HLD, DM2 on oral meds Last A1c 6.7 in October 2021. Continue with sliding scale insulin while in hospital. Resume with/continue home meds as and when appropriate. #. DVT prophylaxis: SCDs, no chemoprophylaxis Re: gi bleed. #. Full code Patient's son Mr. Robbie Mata, contact #[phone]. Text document was generated using voice recognition software. It may contain grammatical or spelling errors. Kindly contact undersigned for clarification of any documentation item in question. Admission and Anticipated Discharge Date Admission Date: January 30, 2022 Subjective Patient seen and examined at bedside as a follow-up of rectal bleeding and symptomatic anemia. Patient was sitting up in bed, on room air, NAD, no new acute events overnight per patient. Patient remained n.p.o. at bedside exam, later cleared for clear liquid diet per GI. Diet ordered. Patient denies any further bowel movement while in hospital. Patient denies any chest pain/palpitation/fever/headache/dizziness/belly pain/sore throat/cough/other review of symptoms. Physical Exam Physical Exam: GENERAL: Alert and oriented x3. NAD, on RA. HEENT: No pallor, no icterus. Pupils equal, round and reactive to light. Oral mucosa moist. NECK: No JVD, no neck masses. HEART: S1 and S2 heard. Regular rate and rhythm. No murmur, no gallop. RESPIRATORY SYSTEM: Normal AP diameter. No accessory muscle use. No wheezing, no crackles. ABDOMEN: Soft, bowel sounds present, nontender, no distention. CENTRAL NERVOUS SYSTEM: No facial droop. Speech is clear. Obeys simple commands. Moves extremities. EXTREMITIES: trace ble edema, no erythema seen. Results & Data Results & Data ([facility]) Vital Signs (Past 12 Hours) Vital Signs Temp Pulse Pulse Resp BP BP BP 01/31/22 12:08 36.4 C L 60 19 167/67 H 01/31/22 11:47 36.4 C L 60 18 167/67 H 01/31/22 11:31 64 01/31/22 11:17 36.5 C 59 L 19 164/72 H 01/31/22 10:47 36.6 C 60 18 165/78 H 01/31/22 10:32 36.5 C 62 18 176/70 H 01/31/22 10:15 36.5 C 60 18 155/64 H 01/31/22 07:24 36.8 C 61 20 154/57 H 01/31/22 03:02 36.8 C 63 18 145/57 H Pulse Ox 01/31/22 12:08 98 01/31/22 11:47 100 01/31/22 11:31 01/31/22 11:17 99 01/31/22 10:47 93 01/31/22 10:32 99 01/31/22 10:15 98 01/31/22 07:24 97 01/31/22 03:02 99
[2022-01-31 16:55] LABS: Hematocrit (blood only) 28.8 % (42-52); Hemoglobin 9.8 g/dL (14.0-18.0)
[2022-01-31 17:57] LABS: Adenovirus F 40/41 PCR Not Detected (NotDetected); Astrovirus PCR Not Detected (NotDetected); Campylobacter PCR Not Detected (NotDetected); Clostridium diff Toxin A/B PCR Not Detected (NotDetected); Cryptosporidium PCR Not Detected (NotDetected); Cyclospora cayetanensis PCR Not Detected (NotDetected); Entamoeba histolytica PCR Not Detected (NotDetected); Enteroaggregative E.coli(EAEC) Not Detected (NotDetected); Enteropathogenic E.coli (EPEC) Not Detected (NotDetected); Enterotoxigenic E.coli (ETEC) Not Detected (NotDetected); Giardia lamblia PCR Not Detected (NotDetected); Norovirus GI/GII PCR Not Detected (NotDetected); Plesiomonas shigelloides PCR Not Detected (NotDetected); Rotavirus A PCR Not Detected (NotDetected); Salmonella PCR Not Detected (NotDetected); Sapovirus PCR Not Detected (NotDetected); Shiga-like Toxin E.coli (STEC) Not Detected (NotDetected); Shigella/Enteroinvasive E.coli Not Detected (NotDetected); Vibrio cholerae PCR Not Detected (NotDetected); Vibrio species PCR Not Detected (NotDetected); Yersinia enterocolitica PCR Not Detected (NotDetected)
[2022-01-31] MEDS ORDERED: MELATONIN 3 MG TAB PO PRN (20:15)
[2022-01-31 22:47] LABS: Hematocrit (blood only) 28.6 % (42-52); Hemoglobin 9.9 g/dL (14.0-18.0)
--- NOTE | 2022-01-31 23:07 | Electrocardiogram Report ---
Test Reason : Blood Pressure : / mmHG Vent. Rate : 061 BPM Atrial Rate : 061 BPM P-R Int : 218 ms QRS Dur : 086 ms QT Int : 436 ms P-R-T Axes : -25 027 067 degrees QTc Int : 438 ms Atrial-paced rhythm with prolonged AV conduction Abnormal ECG When compared with ECG of 30-OCT-2021 19:55, Electronic atrial pacemaker has replaced Sinus rhythm Nonspecific T wave abnormality no longer evident in Anterior leads Confirmed by Rad Newton ([id number]) on 01/31/2022 11:06:55 PM Referred By: REFERRED SELF Confirmed By:Rad Newton
[2022-02-01] MEDS: PANTOprazole 40 MG in DEXTROSE 5% 100 ML IV SCH ×5 (02:03→21:11)
[2022-02-01 06:41] LABS: Hematocrit (blood only) 26.1 % (42-52); Hemoglobin 8.7 g/dL (14.0-18.0); Mean Corpuscular Hemoglobin 30.9 pg (25-34); Mean Corpuscular Hgb Conc 33.3 g/dL (32-36); Mean Corpuscular Volume 92.6 fL (80-100); Mean Platelet Volume 9.5 fL (7.4-10.4); Platelet Count 162 K/uL (130-400); RDW Coefficient of Variation 15.5 % (11.5-14.5); RDW Standard Deviation 52.5 fL (36.4-46.3); Red Blood Count 2.82 M/uL (4.7-6.1); White Blood Count 7.25 K/uL (4.8-10.8)
[2022-02-01 06:57] LABS: BUN Creatinine Ratio 18.6 (10-20); Calcium 8.2 mg/dl (8.5-10.1); Creatinine Clr Calc Pharmacy 18.6 ml/min; Est GFR (African American) 21.8 ml/min; Est GFR (Non-African American) 18.8 ml/min; Potassium 4.6 mmol/L (3.5-5.1)
[2022-02-01] MEDS: ATORVASTATIN 40 MG TAB PO SCH (07:56)
[2022-02-01] MEDS: AMIODARONE 200 MG TAB PO SCH (07:57)
[2022-02-01] MEDS: METOPROLOL SUCC 50MG EXT REL TAB PO SCH ×2 (07:57→21:10)
[2022-02-01] MEDS: INSULIN ASPART PER UNIT SC SCH ×4 (08:16→21:10)
--- NOTE | 2022-02-01 10:01 | Gastroenterology Progress Note ---
Date of Service February 01, 2022 Assessment & Plan (1) Rectal bleeding: Plan: BRBPR in setting of stable hemodynamics after eating. Differential includes those of a lower GI bleed, infection, ischemia, diverticular. No signs of continued ongoing GI bleeding. VSS c-diff and stool culture -negative Supportive care Plan on EGD colonoscopy on Wednesday, to advance diet to full liquids today, liquid diet on Wednesday, n.p.o. after midnight with colon prep on Wednesday evening INR has been corrected, would continue to hold coumadin Agree with transfusion Call with questions Admission and Anticipated Discharge Date Admission Date: January 30, 2022 Subjective Walking in hallways, tolerated PO diet well, 2 small mahpenelope bm's stable Hb, Stable VS, in afib with rvr Physical Exam Physical Exam: General: no distress, WDWN Head: normocephalic, atraumatic Eyes: PERRL, EOM's intact, conjunctiva non-injected, anicteric ENT: normal inspection external ears, nose, mucous membranes moist Neck: supple, trachea midline Lungs: clear, no respiratory distress, no wheezing/rhonchi/rales CV: RRR, no murmur, no pretibial edema Abd: normal BS, soft, non-tender Ext: no cyanosis, no calf tenderness Neuro: A&O x 3, no focal deficits noted, normal affect Skin: warm, dry, pale Rectal exam with green stool that is dark in vault. Results & Data ([facility]) Vital Signs (Past 12 Hours) Vital Signs Temp Pulse Pulse Resp BP BP Pulse Ox 02/01/22 08:24 112 H 02/01/22 08:13 36.8 C 60 17 160/64 H 99 02/01/22 08:01 112 H 02/01/22 03:38 36.7 C 59 L 18 157/70 H 97 01/31/22 22:17 61 01/31/22 22:15 36.5 C 71 18 145/69 H 97
[2022-02-01] MEDS: amLODIPine BESYLATE 5 MG TAB PO SCH (10:29)
--- NOTE | 2022-02-01 16:24 | Hospitalist Progress Note ---
Date of Service February 01, 2022 Assessment & Plan (1) Rectal bleeding: Plan: 86-year-old man with PMH of DM2, CAD status post CABG, tachybradycardia syndrome, status post pacemaker, atrial flutter, paroxysmal A. fib on warfarin, HTN, HLD, CKD stage IV, BPH, GERD presented to the ED 01/30 with complaint of dizziness and unsteadiness after an episode of blood per rectum. Is being managed for the following: #. Symptomatic anemia in the setting of Coumadin use: Status post reversal at ER. #. Likely lower GI bleed Patient presented to the ED with complaint of dizziness and unsteadiness after an episode of blood per rectum, patient also reports vomiting x1 (meatballs/pasta sauce) prior to arrival. Blood in the stool was dark red initially and then was bright red blood per patient. Admitting CTAP: Suggestive of duodenitis. 01/31 stool PCR negative. Admitting hemoglobin of 7.7, status post 2 unit PRBC, hemoglobin stable above 8.5, monitor in a.m. or as needed. Transfuse PRBC if hemoglobin less than 8, history of CAD Continue with IV pantoprazole given duodenitis in CTAP GI evaluated, colonoscopy on Wednesday. Advance diet to full liquids today, clear liquid on Wednesday followed by n.p.o. midnight for Wednesday colonoscopy. Continue to hold Coumadin. Continue supportive care. Coumadin/aspirin on hold. #. Recurrent hyperkalemia secondary to chronic kidney dysfunction Admitting potassium of 6.3 s/p Potassium lowering cocktail in ER Potassium within normal limit. Creatinine at admission 3.35, which seems to be closer to his baseline. Creatinine trending down, BMP in a.m., continue to follow. Low potassium diet. #. Other chronic medical conditions: CAD status post CABG, A. fib on Coumadin, HTN, HLD, DM2 on oral meds Last A1c 6.7 in October 2021. Continue with sliding scale insulin while in hospital. Resume with/continue home meds as and when appropriate. #. DVT prophylaxis: SCDs, no chemoprophylaxis Re: gi bleed. #. Full code Patient's son Mr. Robbie Mata, contact #[phone]. Text document was generated using voice recognition software. It may contain g rammatical or spelling errors. Kindly contact undersigned for clarification of any documentation item in question. Admission and Anticipated Discharge Date Admission Date: January 30, 2022 Subjective Patient seen and examined at bedside as a follow-up of rectal bleeding and sym ptomatic anemia. Patient was sitting up in bed, on room air, NAD, no new acute events overnight per patient. Patient reports one semisolid bowel movement yesterday with light red blood [not dark red or bright red as prior]. Patient tolerating clear liquid diet. Hemoglobin has been stable. Patient denies any chest pain/palpitation/fever/headache/dizziness/belly pain/sore throat/cough/other review of symptoms. Physical Exam Physical Exam: GENERAL: Alert and oriented x3. NAD, on RA. HEENT: No pallor, no icterus. Pupils equal, round and reactive to light. Oral mucosa moist. NECK: No JVD, no neck masses. HEART: S1 and S2 heard. Regular rate and rhythm. No murmur, no gallop. RESPIRATORY SYSTEM: Normal AP diameter. No accessory muscle use. No wheezing, no crackles. ABDOMEN: Soft, bowel sounds present, nontender, no distention. CENTRAL NERVOUS SYSTEM: No facial droop. Speech is clear. Obeys simple commands. Moves extremities. EXTREMITIES: trace ble edema, no erythema seen. Results & Data Results & Data ([facility]) Vital Signs (Past 12 Hours) Vital Signs Temp Pulse Pulse Resp BP BP Pulse Ox 02/01/22 16:09 36.4 C L 63 18 146/72 H 100 02/01/22 15:42 64 02/01/22 14:43 36.5 C 58 L 18 151/68 H 99 02/01/22 08:24 112 H 02/01/22 08:13 36.8 C 60 17 160/64 H 99 02/01/22 08:01 112 H
[2022-02-02] MEDS: PANTOprazole 40 MG in DEXTROSE 5% 100 ML IV SCH ×2 (02:42→08:06)
[2022-02-02 06:15] LABS: Mean Corpuscular Hemoglobin 31.8 pg (25-34); Mean Corpuscular Hgb Conc 34.6 g/dL (32-36); Mean Corpuscular Volume 91.9 fL (80-100); Mean Platelet Volume 9.3 fL (7.4-10.4); Platelet Count 169 K/uL (130-400); RDW Coefficient of Variation 15.1 % (11.5-14.5); Red Blood Count 2.83 M/uL (4.7-6.1); White Blood Count 7.82 K/uL (4.8-10.8)
[2022-02-02 07:00] LABS: Calcium 8.1 mg/dl (8.5-10.1); Magnesium 1.7 mg/dl (1.7-2.4); Potassium 4.3 mmol/L (3.5-5.1)
[2022-02-02] MEDS: INSULIN ASPART PER UNIT SC SCH ×4 (07:59→20:42)
[2022-02-02] MEDS: METOPROLOL SUCC 50MG EXT REL TAB PO SCH ×2 (08:06→20:26)
[2022-02-02] MEDS: AMIODARONE 200 MG TAB PO SCH (08:06)
[2022-02-02] MEDS: ATORVASTATIN 40 MG TAB PO SCH (08:06)
[2022-02-02] MEDS: amLODIPine BESYLATE 5 MG TAB PO SCH (08:07)
[2022-02-02 08:12] LABS: BUN Creatinine Ratio 13.8 (10-20); Creatinine Clr Calc Pharmacy 18.2 ml/min; Est GFR (African American) 21.2 ml/min; Est GFR (Non-African American) 18.3 ml/min
[2022-02-02] MEDS: PANTOprazole 40 MG in SYRINGE 0 ML IV SCH ×2 (09:33→20:28)
--- NOTE | 2022-02-02 10:37 | Gastroenterology Progress Note ---
Date of Service February 02, 2022 Assessment & Plan (1) Rectal bleeding: Plan: BRBPR in setting of stable hemodynamics after eating. Differential includes those of a lower GI bleed, infection, ischemia, diverticular. No signs of continued ongoing GI bleeding. VSS C-diff and stool culture -negative Supportive care Plan on EGD colonoscopy on Wednesday, to advance diet to full liquids today, liquid diet today, n.p.o. after midnight with colon prep on Wednesday evening INR has been corrected, would continue to hold coumadin Call with questions Admission and Anticipated Discharge Date Admission Date: January 30, 2022 Subjective Hb and VSS stable, no documented GI output. Out walking the hallways, with walker by self. No complaints today. Physical Exam Physical Exam: GENERAL: Alert and oriented x3. NAD, on RA. HEENT: No pallor, no icterus. Pupils equal, round and reactive to light. Oral mucosa moist. NECK: No JVD, no neck masses. HEART: S1 and S2 heard. Regular rate and rhythm. No murmur, no gallop. RESPIRATORY SYSTEM: Normal AP diameter. No accessory muscle use. No wheezing, no crackles. ABDOMEN: Soft, bowel sounds present, nontender, no distention. CENTRAL NERVOUS SYSTEM: No facial droop. Speech is clear. Obeys simple commands. Moves extremities. EXTREMITIES: trace ble edema, no erythema seen. Results & Data ([facility]) Vital Signs (Past 12 Hours) Vital Signs Temp Pulse Pulse Resp BP Pulse Ox 02/02/22 07:25 60 02/02/22 02:55 36.4 C L 66 18 169/69 H 98 02/01/22 23:41 36.2 C L 65 18 131/87 96 02/01/22 22:53 68
--- NOTE | 2022-02-02 13:46 | Hospitalist Progress Note ---
Date of Service February 02, 2022 Assessment & Plan (1) Rectal bleeding: Plan: 86-year-old man with PMH of DM2, CAD status post CABG, tachybradycardia syndrome, status post pacemaker, atrial flutter, paroxysmal A. fib on warfarin, HTN, HLD, CKD stage IV, BPH, GERD presented to the ED 01/30 with complaint of dizziness and unsteadiness after an episode of blood per rectum. He is being managed for the following: #. Hematochezia- in the setting of Coumadin use: Status post reversal at ER. Patient presented to the ED with complaint of dizziness and unsteadiness after an episode of blood per rectum, patient also reports vomiting x1 (meatballs/pasta sauce) prior to arrival. Blood in the stool was dark red initially and then was bright red blood per patient. Admitting CTAP: Suggestive of duodenitis. 01/31 stool PCR negative. Admitting hemoglobin of 7.7, status post 2 unit PRBC, hemoglobin stable above 8.5, monitor in a.m. or as needed. Transfuse PRBC if hemoglobin less than 8, history of CAD Continue with IV pantoprazole given duodenitis in CTAP GI evaluated, colonoscopy on Wednesday. Clear liquid diet today, npo after midnight for colonsocopy tomorrow. GI following. Continue to hold Coumadin. Continue supportive care. Coumadin/aspirin on hold. CKD4- Cr stable at baseline, avoid nephrotoxics DM2- BG well controlled. Continue SSI. Home oral meds on hold Paroxysmal Afib on coumadin- Currently NSR, on amiodarone, toprol. - Coumadin on hold per GI pending colonoscopy H/o CAD status post CABG- stable. HTN- BP stable, continue norvasc, toprol DVT prophylaxis: SCDs, no chemoprophylaxis d/t gi bleed pending colonoscopy Full code Admission and Anticipated Discharge Date Admission Date: January 30, 2022 Subjective No new issues. Feels fine. Had BM this morning, no blood. No nausea, vomiting. No fever, chills. Physical Exam Physical Exam: General: Sitting comfortably in chair, not in distress, on room air HEENT: EOMI, GERMAINE, MMM Chest: Clear breath sounds bilaterally, no wheezes or crackles CVS: Regular rate and rhythm, normal heart sounds, no murmur Abdomen: Soft, non tender, not distended, normal bowel sounds Neuro: Awake, alert, oriented, conversing well, non focal Extremities: No cyanosis, clubbing or edema Results & Data Results & Data ([facility]) Vital Signs (Past 12 Hours) Vital Signs Temp Pulse Pulse Resp BP BP Pulse Ox 02/02/22 11:23 36.3 C L 94 H 20 149/71 H 97 02/02/22 07:25 60 02/02/22 02:55 36.4 C L 66 18 169/69 H 98 Laboratory Results Short CBC 02/02/22 Range/Units 05:40 WBC 7.82 (4.8-10.8) K/uL Hgb 9.0 L (14.0-18.0) g/dL Hct 26.0 L (42-52) % Plt Count 169 (130-400) K/uL BMP 02/02/22 05:40 Sodium 136 Potassium 4.3 Chloride 107 Carbon Dioxide 23 BUN 41 H Creatinine 2.97 H Glucose 104 H Calcium 8.1 L Medications Administered Current Inpatient Medications Acetaminophen (Acetaminophen 325 Mg Tab) 650 mg PO Q4H PRN PRN Reason: Pain or Fever Stop: 03/01/22 23:40 Amiodarone HCl (Amiodarone 200 Mg Tab) 200 mg PO DAILY TRISTAN Stop: 03/02/22 08:59 Last Admin: 02/02/22 08:06 Dose: 200 mg Documented by: Amlodipine Besylate (Amlodipine Besylate 5 Mg Tab) 5 mg PO DAILY TRISTAN Stop: 03/02/22 08:59 Last Admin: 02/02/22 08:07 Dose: 5 mg Documented by: Atorvastatin Calcium (Atorvastatin 40 Mg Tab) 80 mg PO DAILY TRISTAN Stop: 03/02/22 08:59 Last Admin: 02/02/22 08:06 Dose: 80 mg Documented by: Dextrose (Dextrose 50% 50 Ml Syringe) 25 - 50 ml IV UD PRN; Protocol PRN Reason: Hypoglycemia Protocol Stop: 03/01/22 23:40 Glucagon (Glucagon For Inj 1 Mg Vial) 1 mg SQ UD PRN; Protocol PRN Reason: Hypoglycemia Protocol Stop: 03/01/22 23:40 Glucose (Glucose 10 Tabs/Tube) 4 - 8 tabs PO UD PRN; Protocol PRN Reason: Hypoglycemia Protocol Stop: 03/01/22 23:40 Glucose (Glucose 40% Gel 15 Gm Tube) 15 - 30 gm PO UD PRN; Protocol PRN Reason: Hypoglycemia Protocol Stop: 03/01/22 23:40 Promethazine HCl 6.25 mg/ (Sodium Chloride) 50.25 mls @ 201 mls/hr IV Q6H PRN PRN Reason: Nausea And Vomiting Stop: 03/01/22 23:40 Pantoprazole Sodium 40 mg/ (Syringe) 10 mls @ 5 mls/min IV BID TRISTAN Stop: 03/04/22 08:59 Last Admin: 02/02/22 09:33 Dose: 5 mls/min Documented by: Insulin Aspart (Insulin Aspart Per Unit) 0 units SC ACHS [facility] Stop: 03/02/22 16:29 Last Admin: 02/02/22 12:10 Dose: 2 units Documented by: Melatonin (Melatonin 3 Mg Tab) 3 mg PO HS PRN PRN Reason: Sleep Stop: 03/02/22 20:14 Last Admin: 01/31/22 20:55 Dose: 3 mg Documented by: Metoprolol Succinate (Metoprolol Succ 50mg Ext Rel Tab) 50 mg PO BID [facility] Stop: 03/02/22 08:59 Last Admin: 02/02/22 08:06 Dose: 50 mg Documented by: Miscellaneous (Avodart~Order Awaiting Action) 1 ea N/A QS [facility] Stop: 03/02/22 07:59 Last Admin: 02/02/22 12:43 Dose: Not Given Documented by: Miscellaneous (Carbohydrates For Hypoglycemia ) 15 - 30 gm PO UD PRN PRN Reason: Hypoglycemia Protocol Stop: 03/01/22 23:40 Nitroglycerin (Nitroglycerin Sl 0.4 Mg/Tab Tab) 0.4 mg SL UD PRN PRN Reason: CHEST PAIN Stop: 03/01/22 23:40 Polyethylene Glycol (Polyethylene (Miralax) 17 Gm Pack) 119 gm PO TODAY@,18 [facility] Tramadol HCl (Tramadol Hcl 50 Mg Tablet) 25 - 50 mg PO Q4H PRN PRN Reason: Pain Stop: 03/01/22 23:40
[2022-02-02] MEDS: POLYETHYLENE (MIRALAX) 17 GM PACK PO SCH (17:05)
[2022-02-03] MEDS: POLYETHYLENE (MIRALAX) 17 GM PACK PO SCH (06:09)
[2022-02-03 07:55] LABS: Hematocrit (blood only) 28.6 % (42-52); Hemoglobin 9.8 g/dL (14.0-18.0); Mean Corpuscular Hemoglobin 31.9 pg (25-34); Mean Corpuscular Hgb Conc 34.3 g/dL (32-36); Mean Corpuscular Volume 93.2 fL (80-100); Mean Platelet Volume 9.5 fL (7.4-10.4); Platelet Count 203 K/uL (130-400); RDW Coefficient of Variation 14.6 % (11.5-14.5); RDW Standard Deviation 49.3 fL (36.4-46.3); Red Blood Count 3.07 M/uL (4.7-6.1); White Blood Count 7.17 K/uL (4.8-10.8)
[2022-02-03 08:00] LABS: INR 1.1 (0.9-1.1); Prothrombin Time 11.4 Seconds (9.0-12.0)
[2022-02-03] MEDS: INSULIN ASPART PER UNIT SC SCH ×4 (08:13→20:04)
[2022-02-03] MEDS: METOPROLOL SUCC 50MG EXT REL TAB PO SCH ×2 (08:14→20:02)
[2022-02-03] MEDS: ATORVASTATIN 40 MG TAB PO SCH (08:15)
[2022-02-03] MEDS: amLODIPine BESYLATE 5 MG TAB PO SCH (08:15)
[2022-02-03] MEDS: AMIODARONE 200 MG TAB PO SCH (08:15)
[2022-02-03] MEDS: PANTOprazole 40 MG in SYRINGE 0 ML IV SCH ×2 (08:16→20:02)
[2022-02-03 08:24] LABS: BUN Creatinine Ratio 11.5 (10-20); Calcium 8.6 mg/dl (8.5-10.1); Creatinine Clr Calc Pharmacy 17.3 ml/min; Est GFR (African American) 19.9 ml/min; Est GFR (Non-African American) 17.2 ml/min; Potassium 4.3 mmol/L (3.5-5.1)
--- NOTE | 2022-02-03 12:30 | History & Physical Bridge Note ---
Date of Service February 03, 2022 History & Physical Bridge Note I have examined the patient, reviewed the History & Physical and in the interval since the performance of the History & Physical I have noted the following changes of clinical significance: no changes noted. The patient notes that his hematochezia has subsequently resolved. We are planning to do upper endoscopy and colonoscopy to further evaluate his index symptoms. We have discussed the risks of the procedures to include bleeding infection perforation pain and need for follow-up studies.
--- NOTE | 2022-02-03 12:53 | Anesthesiology Consultation ---
Date of Service February 03, 2022 Assessment & Plan Chart Review Chart Review: Acceptable Risk for Surgery Consults Requested none ASA ASA3 Proposed Anesthesia Anesthesia Type: MAC Risk / Benefits Reviewed With: PT / POA / Parent / Guardian, Accepts Plan and Informed Consent Obtained History Surgery Operation Date: 02/03/22 16:30 Proposed Procedures p Colonoscopy EGD Dr Lamin Kimble, DO Height/Weight Height: 5 ft 9 in Weight: 82 kg Allergies Allergy/AdvReac Type Severity Reaction Status Date / Time No Known Allergies Allergy Unverified 01/30/22 20:03 Medications Home Medications Medication Instructions Recorded Confirmed Last Taken amiodarone 200 mg tablet 200 mg PO DAILY 10/30/21 01/30/22 01/30/22 amlodipine 5 mg tablet 5 mg PO DAILY 10/30/21 01/30/22 01/30/22 aspirin 81 mg tablet,delayed 81 mg PO DAILY 10/30/21 01/30/22 01/30/22 release atorvastatin 80 mg tablet 80 mg PO DAILY 10/30/21 01/30/22 01/30/22 diphenhydramine 25 1 tab PO HS PRN 10/30/21 01/30/22 Unknown mg-acetaminophen 500 mg tablet (Tylenol PM Extra Strength) dutasteride 0.5 mg capsule 0.5 mg PO DAILY 10/30/21 01/30/22 01/30/22 glipizide 2.5 mg tablet, extended 2.5 mg PO DAILY 10/30/21 01/30/22 01/30/22 release 24 hr metoprolol succinate 50 mg 50 mg PO BID 10/30/21 01/30/22 01/30/22 tablet,extended release 24 hr nitroglycerin 0.4 mg sublingual 0.4 mg SUBLINGUAL DIRECTED 10/30/21 01/30/22 Unknown tablet (Nitrostat) ondansetron HCl 4 mg tablet 4 mg PO Q12 PRN 10/30/21 01/30/22 Unknown pantoprazole 40 mg tablet,delayed 40 mg PO DAILY 10/30/21 01/30/22 01/30/22 release warfarin 3 mg tablet (Jantoven) See Rx Instructions .ROUTE .COMPLEX 10/31/21 01/30/22 01/29/22 docusate sodium 100 mg tablet 100 mg PO BID 01/30/22 01/30/22 Unknown polyethylene glycol 3350 17 gram 17 g PO DAILY 01/30/22 01/30/22 Unknown oral powder packet (Miralax) Active Medications Generic Name Dose Route Start Last Admin Trade Name Bret PRN Reason Stop Dose Admin Amiodarone HCl 200 mg 01/31/22 09:00 02/03/22 08:15 Amiodarone 200 Mg Tab PO 03/02/22 08:59 200 mg DAILY TRISTAN Administration Amlodipine Besylate 5 mg 01/31/22 09:00 02/03/22 08:15 Amlodipine Besylate 5 Mg Tab PO 03/02/22 08:59 5 mg DAILY TRISTAN Administration Atorvastatin Calcium 80 mg 01/31/22 09:00 02/03/22 08:15 Atorvastatin 40 Mg Tab PO 03/02/22 08:59 80 mg DAILY TRISTAN Administration Pantoprazole Sodium 40 mg/ 10 mls @ 5 mls/min 02/02/22 09:00 02/03/22 08:16 Syringe IV 03/04/22 08:59 5 mls/min BID TRISTAN Administration Insulin Aspart 0 units 01/31/22 16:30 02/03/22 11:23 Insulin Aspart Per Unit SC 03/02/22 16:29 Not Given ACHS TRISTAN Melatonin 3 mg 01/31/22 20:15 01/31/22 20:55 Melatonin 3 Mg Tab PO 03/02/22 20:14 3 mg HS PRN Administration Sleep Metoprolol Succinate 50 mg 01/31/22 09:00 02/03/22 08:14 Metoprolol Succ 50mg Ext Rel Tab PO 03/02/22 08:59 50 mg BID TRISTAN Administration Miscellaneous 1 ea 01/31/22 08:00 02/03/22 08:16 Avodart~Order Awaiting Action N/A 03/02/22 07:59 Not Given QS TRISTAN Polyethylene Glycol 119 gm 02/02/22 18:00 02/03/22 06:09 Polyethylene (Miralax) 17 Gm Pack PO 119 gm TODAY@06,18 TRISTAN Administration NPO Date Last Intake of Fluids: 02/03/22 Time Last Intake of Fluids: 07:15 Last Intake of Fluids Comment: finished miralax Date Last Intake of Solids: 01/30/22 Time Last Intake of Solids: 12:44 Past Medical History Medical History Benign localized hyperplasia of prostate with urinary obstruction CAD (coronary artery disease) Chronic prostatitis CKD (chronic kidney disease) stage 4, GFR 15-29 ml/min Diabetes mellitus History of supraventricular tachycardia HLD (hyperlipidemia) HTN (hypertension) Hyperparathyroidism PAF (paroxysmal atrial fibrillation) SVT (supraventricular tachycardia) T2DM (type 2 diabetes mellitus) Exercise / Class Metabolic Activity II 4-5 Yardwork/Stairs/Walk up hill Past Family History Family History Father , 72 Cancer Coronary heart disease Past Surgical History Surgical History History of cataract extraction History of prostate surgery Hx of CABG hx of cabg x 3 2002 Past Anesthesia History No Hx of Anesthesia Complications and No Family Hx of Anesthesia Complications History of PONV No Hx of PONV and No Hx of Motion Sickness Social History Smoking Status: Never smoker tobacco type: pipe and cigars Hx Alcohol Use: Yes Alcohol type: beer alcohol intake frequency: a few times a month Hx Substance Use: No substance use type: does not use Review of Systems ROS Unobtainable: All systems reviewed & are unremarkable except as noted in HPI & below Constitutional: as per Subjective / HPI Eyes: as per Subjective / HPI Ear, Nose, Mouth, Throat: as per Subjective / HPI Respiratory: as per Subjective / HPI Cardiovascular: as per Subjective / HPI Additional Comments: metoprolol taken this morning Gastrointestinal: as per Subjective / HPI Genitourinary (Male): + as per Subjective / HPI Musculoskeletal: as per Subjective / HPI Integumentary: as per Subjective / HPI Neurologic: as per Subjective / HPI Psychiatric: as per Subjective / HPI Endocrine: as per Subjective / HPI Hematologic / Lymphatic: as per Subjective / HPI Allergy / Immunological: as per Subjective / HPI Physical Exam Vital Signs Last Vital Signs Temp 36 C L 02/03/22 12:41 Pulse 61 02/03/22 12:41 Resp 18 02/03/22 12:41 BP 124/67 02/03/22 12:41 Pulse Ox 100 02/03/22 12:41 Constitutional WD/WN, vitals as above well developed, well nourished and + well hydrated; no acute distress ENMT external ear and nose normal, oropharynx normal Mouth: no loose teeth Thyromental Distance: > or= 3.5 Finger Breadths Mallampati Class: II Throat: uvula midline Neck normal visual inspection and trachea midline Respiratory normal respiratory effort, lungs clear to auscultation normal respiratory effort; no respiratory distress Auscultation: lungs clear to auscultation bilaterally Cardiovascular RRR, no murmur, no edema Rate/Rhythm: regular rate and regular rhythm Heart Sounds: no murmur Vessels: no JVD Chest (Breasts) Chest: + pacemaker Skin no rashes, warm and dry Neurologic moves all extremities and awake; no focal motor deficits Cranial Nerves: tongue midline and symmetric palate elevation Psychiatric A+Ox3, euthymic affect Orientation: alert and oriented x 3 Apperance: appropriately dressed and appropriately groomed Eye Contact: good eye contact Speech: normal rate/rhythm/volume of speech Affect: euthymic affect Judgement: good judgement Testing Laboratory Results 02/03/22 06:58 02/03/22 06:58 PT 11.4 Seconds (9.0-12.0) 02/03/22 06:58 INR 1.1 (0.9-1.1) 02/03/22 06:58 APTT 30.3 Seconds (21.0-31.0) 01/30/22 17:47 Blood Type A Negative 01/30/22 17:46 Antibody Screen NEGATIVE 01/30/22 17:46 02/03/22 02/03/22 11:19 07:33 POC Glucose 111 H 110 H Echocardiogram echo 2019 - moderate LVH
--- NOTE | 2022-02-03 13:08 | Hospitalist Progress Note ---
Date of Service February 03, 2022 Assessment & Plan (1) Rectal bleeding: Plan: 86-year-old man with PMH of DM2, CAD status post CABG, tachybradycardia syndrome, status post pacemaker, atrial flutter, paroxysmal A. fib on warfarin, HTN, HLD, CKD stage IV, BPH, GERD presented to the ED 01/30 with complaint of dizziness and unsteadiness after an episode of blood per rectum. Admitting CTAP: Suggestive of duodenitis. 01/31 stool PCR negative. Admitting hemoglobin of 7.7, status post 2 unit PRBC and hemoglobin remained stable since with no further rectal bleeding. #. Hematochezia- in the setting of Coumadin use: Status post reversal at ER. - Hematochezia resolved, H &H has remained stable after 2 U PRBC. Hb 7.7->7.6->9.9->8.7->9->9.8 - Seen by GI- plan for EGD colonoscopy today - on PPI for duodenitis seen in CT CKD4- Cr relatively stable close to baseline, currently 3.1. Avoid nephrotoxics DM2- BG well controlled. Continue SSI. Home oral meds on hold Paroxysmal Afib on coumadin- Currently NSR, on amiodarone, toprol. - Coumadin on hold per GI pending colonoscopy H/o CAD status post CABG- stable. HTN- BP stable, continue norvasc, toprol DVT prophylaxis: SCDs, no chemoprophylaxis d/t gi bleed pending endoscopic evaluation Dispo- EGD/colonoscopy today. Pending PT/OT eval. Admission and Anticipated Discharge Date Admission Date: January 30, 2022 Subjective Feels fine. Anxious when the colonoscopy would be done wand he wanted me to find out the timing. He drank all bowel prep and had BMs- states no blood, not black. No lightheadedness, dizziness. Physical Exam Physical Exam: General: Sitting comfortably in chair, not in distress, on room air HEENT: EOMI, GERMAINE, MMM Chest: Clear breath sounds bilaterally, no wheezes or crackles CVS: Regular rate and rhythm, normal heart sounds, no murmur Abdomen: Soft, non tender, not distended, normal bowel sounds Neuro: Awake, alert, oriented, conversing well, non focal Extremities: No cyanosis, clubbing or edema Results & Data Results & Data ([facility]) Vital Signs (Past 12 Hours) Vital Signs Temp Pulse Pulse Resp BP BP Pulse Ox 02/03/22 12:41 36 C L 61 18 124/67 100 02/03/22 10:59 36.7 C 95 H 18 128/68 96 02/03/22 07:43 36.7 C 67 18 181/73 H 94 02/03/22 07:09 72 02/03/22 03:39 37.1 C 61 18 157/67 H 97 Laboratory Results Short CBC 02/03/22 Range/Units 06:58 WBC 7.17 (4.8-10.8) K/uL Hgb 9.8 L (14.0-18.0) g/dL Hct 28.6 L (42-52) % Plt Count 203 (130-400) K/uL BMP 02/03/22 06:58 Sodium 137 Potassium 4.3 Chloride 108 H Carbon Dioxide 21 BUN 36 H Creatinine 3.13 H Glucose 99 Calcium 8.6 Medications Administered Current Inpatient Medications Acetaminophen (Acetaminophen 325 Mg Tab) 650 mg PO Q4H PRN PRN Reason: Pain or Fever Stop: 03/01/22 23:40 Amiodarone HCl (Amiodarone 200 Mg Tab) 200 mg PO DAILY TRISTAN Stop: 03/02/22 08:59 Last Admin: 02/03/22 08:15 Dose: 200 mg Documented by: Amlodipine Besylate (Amlodipine Besylate 5 Mg Tab) 5 mg PO DAILY TRISTAN Stop: 03/02/22 08:59 Last Admin: 02/03/22 08:15 Dose: 5 mg Documented by: Atorvastatin Calcium (Atorvastatin 40 Mg Tab) 80 mg PO DAILY TRISTAN Stop: 03/02/22 08:59 Last Admin: 02/03/22 08:15 Dose: 80 mg Documented by: Dextrose (Dextrose 50% 50 Ml Syringe) 25 - 50 ml IV UD PRN; Protocol PRN Reason: Hypoglycemia Protocol Stop: 03/01/22 23:40 Glucagon (Glucagon For Inj 1 Mg Vial) 1 mg SQ UD PRN; Protocol PRN Reason: Hypoglycemia Protocol Stop: 03/01/22 23:40 Glucose (Glucose 10 Tabs/Tube) 4 - 8 tabs PO UD PRN; Protocol PRN Reason: Hypoglycemia Protocol Stop: 03/01/22 23:40 Glucose (Glucose 40% Gel 15 Gm Tube) 15 - 30 gm PO UD PRN; Protocol PRN Reason: Hypoglycemia Protocol Stop: 03/01/22 23:40 Promethazine HCl 6.25 mg/ (Sodium Chloride) 50.25 mls @ 201 mls/hr IV Q6H PRN PRN Reason: Nausea And Vomiting Stop: 03/01/22 23:40 Pantoprazole Sodium 40 mg/ (Syringe) 10 mls @ 5 mls/min IV BID [facility] Stop: 03/04/22 08:59 Last Admin: 02/03/22 08:16 Dose: 5 mls/min Documented by: Insulin Aspart (Insulin Aspart Per Unit) 0 units SC ACHS [facility] Stop: 03/02/22 16:29 Last Admin: 02/03/22 11:23 Dose: Not Given Documented by: Melatonin (Melatonin 3 Mg Tab) 3 mg PO HS PRN PRN Reason: Sleep Stop: 03/02/22 20:14 Last Admin: 01/31/22 20:55 Dose: 3 mg Documented by: Metoprolol Succinate (Metoprolol Succ 50mg Ext Rel Tab) 50 mg PO BID [facility] Stop: 03/02/22 08:59 Last Admin: 02/03/22 08:14 Dose: 50 mg Documented by: Miscellaneous (Avodart~Order Awaiting Action) 1 ea N/A QS [facility] Stop: 03/02/22 07:59 Last Admin: 02/03/22 08:16 Dose: Not Given Documented by: Miscellaneous (Carbohydrates For Hypoglycemia ) 15 - 30 gm PO UD PRN PRN Reason: Hypoglycemia Protocol Stop: 03/01/22 23:40 Nitroglycerin (Nitroglycerin Sl 0.4 Mg/Tab Tab) 0.4 mg SL UD PRN PRN Reason: CHEST PAIN Stop: 03/01/22 23:40 Polyethylene Glycol (Polyethylene (Miralax) 17 Gm Pack) 119 gm PO TODAY@06,18 [facility] Last Admin: 02/03/22 06:09 Dose: 119 gm Documented by: Tramadol HCl (Tramadol Hcl 50 Mg Tablet) 25 - 50 mg PO Q4H PRN PRN Reason: Pain Stop: 03/01/22 23:40
[2022-02-03] MEDS ORDERED: PROPOFOL IV EMULSION 10 MG/ML 20 ML VIAL IV ONE (13:30)
[2022-02-03] MEDS ORDERED: PHENYLEPHRINE 100MCG/ML 5ML SYR ONE (13:30)
[2022-02-03] MEDS ORDERED: LIDOCAINE 2% MPF LOCAL 5 ML VIAL INFIL ONE (13:30)
--- NOTE | 2022-02-03 13:32 | Communication Note ---
Date of Service: February 03, 2022 Patient underwent upper endoscopy and colonoscopy today. Colonoscopy findings Hemorrhoids Diverticulosis of the left colon 1 small polyp of descending colon (removed) EGD: Large ulcer of the posterior duodenal bulb Recommendations Advance to full liquid diet today Protonix 40 mg twice daily for 6 weeks then 1 time daily for an additional 6 weeks Repeat upper endoscopy in 3 months Avoid use of nonsteroidals if possible Please call with questions or concerns, GI to sign off
--- NOTE | 2022-02-03 13:34 | GI REPORT ---
Patient Name: Anand Mata Procedure Date: 02/03/2022 1:00 PM Date of : 1935 Admit Type: Inpatient Age: 86 Gender: Male Attending MD: Kelvin Kimble DO Procedure: Colonoscopy Providers: Kelvin Kimble DO Referring MD: Zain Vilchis Md Indications: Hematochezia Medicines: Monitored Anesthesia Care Complications: No immediate complications. Estimated blood loss: Minimal. Estimated Blood Loss: Estimated blood loss was minimal. Procedure: Pre-Anesthesia Assessment: - Prior to the procedure, a History and Physical was performed, and patient medications, allergies and sensitivities were reviewed. The patient's tolerance of previous anesthesia was reviewed. - The risks and benefits of the procedure and the sedation options and risks were discussed with the patient. All questions were answered and informed consent was obtained. - Patient identification and proposed procedure were verified prior to the procedure by the physician, the nurse and the interactive video technician. The procedure was verified in the procedure room. - Pre-procedure physical examination revealed no contraindications to sedation. - ASA Grade Assessment: III - A patient with severe systemic disease. - After reviewing the risks and benefits, the patient was deemed in satisfactory condition to undergo the procedure. - The anesthesia plan was to use monitored anesthesia care (MAC). - Immediately prior to administration of medications, the patient was re-assessed for adequacy to receive sedatives. - The heart rate, respiratory rate, oxygen saturations, blood pressure, adequacy of pulmonary ventilation, and response to care were monitored throughout the procedure. - The physical status of the patient was re-assessed after the procedure. After I obtained informed consent, the scope was passed under direct vision. Throughout the procedure, the patient's blood pressure, pulse, and oxygen saturations were monitored continuously. The Colonoscope was introduced through the anus and advanced to the terminal ileum. The colonoscopy was performed without difficulty. The patient tolerated the procedure well. The quality of the bowel preparation was good. Findings: Hemorrhoids were found on perianal exam. The terminal ileum appeared normal. Multiple small-mouthed diverticula were found in the sigmoid colon and descending colon. A 5 mm polyp was found in the descending colon. The polyp was sessile. The polyp was removed with a cold snare. Resection and retrieval were complete. The pathology specimen was placed into Bottle B. Estimated blood loss was minimal. Internal hemorrhoids were found during retroflexion. The hemorrhoids were moderate. The exam was otherwise without abnormality. Impression: - Hemorrhoids found on perianal exam. - The examined portion of the ileum was normal. - Mild diverticulosis in the sigmoid colon and in the descending colon. - One 5 mm polyp in the descending colon, removed with a cold snare. Resected and retrieved. - Internal hemorrhoids. - The examination was otherwise normal. Recommendation: - Await pathology results. - Repeat colonoscopy is not recommended for surveillance. Kelvin Kimble D.O. Kelvin Kimble, DO 02/03/2022 1:34:27 PM This report has been signed electronically. Note Initiated On: 02/03/2022 1:00 PM Number of Addenda: 0 I attest to the content of the Intraoperative Record and orders documented therein, exceptions below {[id number]}
--- NOTE | 2022-02-03 13:38 | GI REPORT ---
Patient Name: Anand Mata Procedure Date: 02/03/2022 1:00 PM Date of : 1935 Admit Type: Inpatient Age: 86 Gender: Male Attending MD: Kelvin Kimble DO Procedure: Upper GI endoscopy Providers: Kelvin Kimble DO Referring MD: Zain Vilchis Md Indications: Hematochezia Medicines: Monitored Anesthesia Care Complications: No immediate complications. Estimated blood loss: Minimal. Estimated Blood Loss: Estimated blood loss was minimal. Procedure: Pre-Anesthesia Assessment: - Prior to the procedure, a History and Physical was performed, and patient medications, allergies and sensitivities were reviewed. The patient's tolerance of previous anesthesia was reviewed. - The risks and benefits of the procedure and the sedation options and risks were discussed with the patient. All questions were answered and informed consent was obtained. - Patient identification and proposed procedure were verified prior to the procedure by the physician, the nurse and the instrument person. The procedure was verified in the procedure room. - Pre-procedure physical examination revealed no contraindications to sedation. - ASA Grade Assessment: III - A patient with severe systemic disease. - After reviewing the risks and benefits, the patient was deemed in satisfactory condition to undergo the procedure. - The anesthesia plan was to use monitored anesthesia care (MAC). - Immediately prior to administration of medications, the patient was re-assessed for adequacy to receive sedatives. - The heart rate, respiratory rate, oxygen saturations, blood pressure, adequacy of pulmonary ventilation, and response to care were monitored throughout the procedure. - The physical status of the patient was re-assessed after the procedure. After obtaining informed consent, the endoscope was passed under direct vision. Throughout the procedure, the patient's blood pressure, pulse, and oxygen saturations were monitored continuously. The Colonoscope was introduced through the mouth, and advanced to the third part of duodenum. The upper GI endoscopy was accomplished without difficulty. The patient tolerated the procedure well. Findings: The examined esophagus was normal. The Z-line was regular and was found 39 cm from the incisors. The entire examined stomach was normal. Biopsies were taken with a cold forceps for histology. The pathology specimen was placed into Bottle A. Estimated blood loss was minimal. One non-obstructing non-bleeding cratered duodenal ulcer with no stigmata of bleeding was found in the duodenal bulb. The lesion was 12 mm in largest dimension. The second portion of the duodenum and third portion of the duodenum were normal. Impression: - Normal esophagus. - Z-line regular, 39 cm from the incisors. - Normal stomach. Biopsied. - Non-obstructing non-bleeding duodenal ulcer with no stigmata of bleeding. Suspicious for NSAID induced etiology. - Normal second portion of the duodenum and third portion of the duodenum. Recommendation: - Perform a colonoscopy as previously scheduled. - Use Protonix (pantoprazole) 40 mg PO BID for 6 weeks then reduce to 1 time daily thereafter (may use 20 mg). - Avoid use of NSAIDS if possible - Iron supplement for 6 to 8 weeks - Repeat upper endoscopy in 3 months to ensure ulcer healing. Kelvin Kimble D.O. Kelvin Kimble, 02/03/2022 1:37:55 PM This report has been signed electronically. Note Initiated On: 02/03/2022 1:00 PM Number of Addenda: 0 I attest to the content of the Intraoperative Record and orders documented therein, exceptions below {[id number]}
--- NOTE | 2022-02-03 14:25 | Anesthesiology Progress Note ---
Date of Service February 03, 2022 Anesthesia Post Procedure Vital Signs Vital Signs: Temp Pulse Pulse Resp BP BP Pulse Ox 02/03/22 14:05 63 16 139/65 100 02/03/22 13:50 61 16 118/74 100 02/03/22 13:35 64 16 100/57 L 100 02/03/22 12:41 36 C L 61 18 124/67 100 02/03/22 10:59 36.7 C 95 H 18 128/68 96 02/03/22 07:43 36.7 C 67 18 181/73 H 94 02/03/22 07:09 72 02/03/22 03:39 37.1 C 61 18 157/67 H 97 02/02/22 23:32 61 02/02/22 22:55 36.8 C 60 20 139/67 98 02/02/22 19:25 36.4 C L 97 H 20 147/68 H 99 02/02/22 15:09 36.6 C 62 18 137/62 100 02/02/22 15:02 60 Transfer of Care Handoff Completed per policy Notes Mental Status: alert / awake / arousable and participated in evaluation Patient Amnestic to Procedure: Yes Nausea / Vomiting: adequately controlled Pain: adequately controlled Airway Patency, RR, SpO2: stable & adequate BP & HR: stable & adequate Hydration State: stable & adequate Anesthetic Complications: no major complications apparent and Pt Satisfied with anesthetic care
[2022-02-03] MEDS ORDERED: WARFARIN SOD 6 MG TAB PO SCH (16:00)
[2022-02-03] MEDS: HEPARIN SOD 5,000 UNIT/0.5 ML VIAL SQ SCH (20:01)
[2022-02-04 06:26] LABS: Hematocrit (blood only) 26.3 % (42-52)
[2022-02-04 06:38] LABS: INR 1.2 (0.9-1.1); Prothrombin Time 12.4 Seconds (9.0-12.0)
[2022-02-04 07:00] LABS: Anion Gap 7 (3-11); BUN Creatinine Ratio 11.2 (10-20); Blood Urea Nitrogen 35 mg/dl (6-23); Calcium 8.2 mg/dl (8.5-10.1); Carbon Dioxide 19 mmol/L (21-32); Chloride 110 mmol/L (98-107); Creatinine Clr Calc Pharmacy 17.3 ml/min; Est GFR (Non-African American) 17.3 ml/min; Ferritin 269.4 ng/ml (8-388); Glucose 100 mg/dl (70-99(Fasting)); Sodium 136 mmol/L (136-145); Unsaturated Iron Binding Cap 171 mcg/dl (155-355)
[2022-02-04] MEDS: METOPROLOL SUCC 50MG EXT REL TAB PO SCH (08:07)
[2022-02-04] MEDS: PANTOprazole 40 MG in SYRINGE 0 ML IV SCH (08:08)
[2022-02-04] MEDS: AMIODARONE 200 MG TAB PO SCH (08:08)
[2022-02-04] MEDS: ATORVASTATIN 40 MG TAB PO SCH (08:08)
[2022-02-04] MEDS: amLODIPine BESYLATE 5 MG TAB PO SCH (08:08)
[2022-02-04] MEDS: INSULIN ASPART PER UNIT SC SCH ×2 (08:09→12:32)
[2022-02-04] MEDS: HEPARIN SOD 5,000 UNIT/0.5 ML VIAL SQ SCH (08:09)
[2022-02-04] MEDS ORDERED: FERROUS SULFATE 325 MG TAB PO SCH (09:00)
--- NOTE | 2022-02-04 12:35 | Discharge Summary ---
Date of Service February 04, 2022 Admission HPI Per Admitting Provider Patient is 86-year-old male with PMH DM II, CAD s/p CABG, tachybradycardia syndrome, s/p pacemaker, atrial flutter, paroxysmal atrial fibrillation anticoagulated on warfarin, HTN, HLD, CKD IV, BPH, GERD presented to ER with complaint of dizziness and unsteadiness. Patient states today went out for lunch and had meatball sub. He states came home and had sudden urge to have BM and had BM described as red and dark. Had additional BM that red in coloration and reports toilet water was red. He states felt lightheaded. He called a friend who attempted to walk him to car however patient felt too lightheaded and had to sit down and EMS transported to hospital. Patient unsure if had colonoscopy in past. Denies history of rectal bleeding. Patient reports in past was on diuretic and potassium supplement. He knows diuretic was discontinued and potassium was also but patient is unsure if he has continued to take potassium. Denies fever/chills, diaphoresis, N/V, SOLOMON, syncope, vision changes, neck pain, CP, SOB, orthopnea, palpitations, cough, sore throat, choking, otalgia, rhinorrhea, abdominal pain, paresthesias, extremity weakness, extremity edema, rashes, urinary symptoms. In ER vitals stable. H/H: 7.7/23 (hgb: 8.9 in 10/2021), INR: 2.9, K: 6.3. Cr: 3.5 Principal Diagnosis Acute blood loss anemia due to UGI bleed, duodenal ulcer Discharge Exam General: Sitting comfortably in chair, not in distress, on room air HEENT: EOMI, GERMAINE, MMM Chest: Clear breath sounds bilaterally, no wheezes or crackles CVS: Regular rate and rhythm, normal heart sounds, no murmur Abdomen: Soft, non tender, not distended, normal bowel sounds Neuro: Awake, alert, oriented, conversing well, non focal Extremities: No cyanosis, clubbing or edema Discharge Data Allergies Allergy/AdvReac Type Severity Reaction Status Date / Time No Known Allergies Allergy Unverified 01/30/22 20:03 Consultations 01/30/22 19:16 ED Decision to Admit Stat 01/30/22 23:41 Consult Gastroenterology Routine Procedures Performed Operation Date: 02/03/22 16:30 Actual Procedures p EGD Biopsy Cytology - Kelvin Kimble DO s Colonoscopy Polypectomy - Kelvin Kimble DO Ordered Studies 01/30/22 17:31 CT abd pelvis wo con Stat CT head/brain wo con Stat Laboratory Results WBC 7.17 K/uL (4.8-10.8) 02/03/22 06:58 RBC 3.07 M/uL (4.7-6.1) L 02/03/22 06:58 Hgb 9.0 g/dL (14.0-18.0) L 02/04/22 06:09 Hct 26.3 % (42-52) L 02/04/22 06:09 MCV 93.2 fL (80-100) 02/03/22 06:58 MCH 31.9 pg (25-34) 02/03/22 06:58 MCHC 34.3 g/dL (32-36) 02/03/22 06:58 RDW Std Deviation 49.3 fL (36.4-46.3) H 02/03/22 06:58 RDW Coeff of Jaime 14.6 % (11.5-14.5) H 02/03/22 06:58 Plt Count 203 K/uL (130-400) 02/03/22 06:58 MPV 9.5 fL (7.4-10.4) 02/03/22 06:58 Immature Gran % (Auto) 0.1 % 01/31/22 05:23 Neut % (Auto) 64.4 % 01/31/22 05:23 Lymph % (Auto) 20.8 % 01/31/22 05:23 [facility] % (Auto) 12.6 % 01/31/22 05:23 Eos % (Auto) 1.7 % 01/31/22 05:23 Baso % (Auto) 0.4 % 01/31/22 05:23 Neut # (Auto) 4.79 K/uL (1.4-6.5) 01/31/22 05:23 Lymph # (Auto) 1.55 K/uL (1.2-3.4) 01/31/22 05:23 [facility] # (Auto) 0.94 K/uL (0.11-0.59) H 01/31/22 05:23 Eos # (Auto) 0.13 K/uL (0-0.5) 01/31/22 05:23 Baso # (Auto) 0.03 K/uL (0-0.2) 01/31/22 05:23 Immature Gran # (Auto) 0.01 K/uL (0.00-0.02) 01/31/22 05:23 RBC Morphology Unremarkable 01/30/22 17:47 PT 12.4 Seconds (9.0-12.0) H 02/04/22 06:09 INR 1.2 (0.9-1.1) H 02/04/22 06:09 APTT 30.3 Seconds (21.0-31.0) 01/30/22 17:47 PTT Ratio 1.1 01/30/22 17:47 Sodium 136 mmol/L (136-145) 02/04/22 06:09 Potassium TNP 02/04/22 06:09 Chloride 110 mmol/L (98-107) H 02/04/22 06:09 Carbon Dioxide 19 mmol/L (21-32) L 02/04/22 06:09 Anion Gap 7 (3-11) 02/04/22 06:09 BUN 35 mg/dl (6-23) H 02/04/22 06:09 Creatinine 3.12 mg/dl (0.6-1.4) H 02/04/22 06:09 Est Cr Clr Drug Dosing 17.3 ml/min 02/04/22 06:09 Est GFR ( Amer) 20.0 ml/min 02/04/22 06:09 Est GFR (Non-Af Amer) 17.3 ml/min 02/04/22 06:09 BUN/Creatinine Ratio 11.2 (10-20) 02/04/22 06:09 Glucose 100 mg/dl (70-99(Fasting)) H 02/04/22 06:09 POC Glucose 140 mg/dl (70-99) H 02/04/22 11:26 Calcium 8.2 mg/dl (8.5-10.1) L 02/04/22 06:09 Magnesium 1.7 mg/dl (1.7-2.4) 02/02/22 05:40 Iron TNP 02/04/22 06:09 Unsaturated IBC 171 mcg/dl (155-355) 02/04/22 06:09 Ferritin 269.4 ng/ml (8-388) 02/04/22 06:09 Total Bilirubin 0.5 mg/dl (0.2-1.0) 01/30/22 17:47 AST 13 U/L (13-39) 01/30/22 17:47 ALT 8 U/L (7-52) 01/30/22 17:47 Alkaline Phosphatase 63 U/L (34-104) 01/30/22 17:47 Total Creatine Kinase 78 U/L (30-223) 01/30/22 17:04 Troponin I High Sens 7.6 pg/ml (0-20) 01/30/22 17:47 Total Protein 6.3 gm/dl (6.0-8.3) 01/30/22 17:47 Albumin 3.5 gm/dl (3.4-5.0) 01/30/22 17:47 Globulin 2.8 gm/dl (2.5-4.0) 01/30/22 17:47 Albumin/Globulin Ratio 1.3 (0.9-2) 01/30/22 17:47 Lipase 41 U/L (11-82) 01/30/22 17:47 Stool Occult Bld Scrn Positive (Negative) A 01/31/22 16:10 Stl C. cayetanensis PCR Not Detected (NotDetected) 01/31/22 16:10 Stool Rotavirus A PCR Not Detected (NotDetected) 01/31/22 16:10 Stl Adenov F 40/41 PCR Not Detected (NotDetected) 01/31/22 16:10 Stool Astrovirus (PCR) Not Detected (NotDetected) 01/31/22 16:10 Stool Campylobacter PCR Not Detected (NotDetected) 01/31/22 16:10 Stl C. diff Tox A/B PCR Not Detected (NotDetected) 01/31/22 16:10 Stool Cryptosporidium PCR Not Detected (NotDetected) 01/31/22 16:10 Stl E.coli Shiga Tox PCR Not Detected (NotDetected) 01/31/22 16:10 Stl Enterotoxigenic E PCR Not Detected (NotDetected) 01/31/22 16:10 Stool EPEC (PCR) Not Detected (NotDetected) 01/31/22 16:10 Stool EAEC (PCR) Not Detected (NotDetected) 01/31/22 16:10 Stl E. histolytica PCR Not Detected (NotDetected) 01/31/22 16:10 Stool Giardia Lamblia PCR Not Detected (NotDetected) 01/31/22 16:10 Stool Salmonella PCR Not Detected (NotDetected) 01/31/22 16:10 Stool Sapovirus (PCR) Not Detected (NotDetected) 01/31/22 16:10 Stl P. shigelloides PCR Not Detected (NotDetected) 01/31/22 16:10 Stl Shigella/EIEC PCR Not Detected (NotDetected) 01/31/22 16:10 St Y.enterocolitica PCR Not Detected (NotDetected) 01/31/22 16:10 Stool Vibrio (PCR) Not Detected (NotDetected) 01/31/22 16:10 Stl Vibrio cholerae PCR Not Detected (NotDetected) 01/31/22 16:10 Stl Norovirus GI/GII PCR Not Detected (NotDetected) 01/31/22 16:10 SARS-CoV-2, RNA, NAAT NEGATIVE (NEGATIVE) 01/30/22 17:53 Blood Type A Negative 01/30/22 17:46 Antibody Screen NEGATIVE 01/30/22 17:46 Crossmatch See Detail 01/30/22 17:46 Impressions Abdomen/Pelvis CT 01/30/22 17:31 CT OF THE ABDOMEN AND PELVIS WITHOUT CONTRAST CLINICAL HISTORY: Bloody stools. COMPARISON STUDY: CT of the abdomen and pelvis January 19, 2021. TECHNIQUE: Axial images of the abdomen and pelvis were obtained without IV contrast. Images were reviewed in the axial, sagittal, and coronal planes. Automated exposure control was utilized for the study. A dose lowering technique was utilized adhering to the principles of ALARA. FINDINGS: No pneumatosis, free air or portal venous gas is present. No renal, ureteral or bladder calculi are present. There is no hydronephrosis or hyd roureter. Bladder wall irregularity is similar to prior CT. Symmetric bilateral perinephric stranding is of questionable significance. Low-attenuation subcentimeter lesion arising from the upper pole the left kidney probably reflects a cyst. Evaluation of the abdomen and pelvis is suboptimal as unenhanced exam. Liver, spleen, adrenal glands and pancreas are unremarkable. Right upper quadrant stranding is noted. This appears to be centered on the second portion the duodenum. Possible duodenal wall thickening is noted. There is no extraluminal gas. There is no fluid collection to suggest abscess. There is no evidence for a bowel obstruction. Sensitivity for detection of mucosal lesions is diminished given CT technique. However, none are identified. There is no lymphadenopathy. Note is made of a 3.5 cm infrarenal abdominal aortic aneurysm which has mildly increased in caliber since CT of January 19, 2021. No evidence for rupture. No acute fracture within the visualized skeletal structures. There is a small fat-containing umbilical hernia. IMPRESSION: 1. Right upper quadrant stranding, likely centered on the second portion of the duodenum with duodenal wall thickening. This may reflect duodenitis. Acute cholecystitis or pancreatitis are considered less likely. No free air. 2. No bowel obstruction. No additional sites of bowel wall thickening on unenhanced exam. 3. Mild increase in caliber of a 3.5 cm infrarenal abdominal aortic aneurysm. ACT 112: Negative or not required by law. Electronically signed by: Marc Leroy M.D. 01/30/2022 7:10 PM Chest X-Ray 01/30/22 17:31 XR chest 1V portable CLINICAL HISTORY: dizzy TECHNIQUE: Single frontal radiograph of the chest was obtained. Comparison: Comparison is made to chest radiograph 10/30/2021 FINDINGS: Median sternotomy wires are unchanged. Dual-lead pacemaker is seen. Calcified aortic knob is seen. The lungs are clear. No evidence of pleural effusion or pneumothorax. IMPRESSION: No acute chest disease. ACT 112: Negative or not required by law. Electronically signed by: Anrdez Burns M.D. 01/30/2022 5:[address] 01/30/22 17:31 CT OF THE HEAD WITHOUT CONTRAST CLINICAL HISTORY: dizzy COMPARISON STUDY: MRI of the brain June 16, 2019. Head CT October 14, 2019. TECHNIQUE: Helical axial images of the head were obtained without IV contrast. Automated exposure control was utilized for the study. A dose lowering technique was utilized adhering to the principles of ALARA. FINDINGS: No acute intracranial hemorrhage, midline shift or mass effect is present. White matter hypodensities are unchanged. There is extensive intracranial vascular calcification. The ventricular system is unremarkable. The basal cisterns are patent. No extra-axial collections are present. There are no findings to suggest acute dural sinus thrombosis or acute territorial infarct. No significant calvarial abnormalities are present. Visualized portions of the sinuses and mastoid air cells are clear. IMPRESSION: No acute intracranial findings. No change in appearance of the brain. ACT 112: Negative or not required by law. Electronically signed by: Marc Leroy M.D. 01/30/2022 6:45 PM Hospital Course (1) Rectal bleedin-year-old man with PMH of DM2, CAD status post CABG, tachybradycardia syndrome, status post pacemaker, atrial flutter, paroxysmal A. fib on warfarin, HTN, HLD, CKD stage IV, BPH, GERD presented to the ED 01/30 with complaint of dizziness and unsteadiness after an episode of blood per rectum. Admitting CTAP: Suggestive of duodenitis. 01/31 stool PCR negative. Admitting hemoglobin of 7.7, status post 2 unit PRBC and hemoglobin remained stable since with no further rectal bleeding. CT A/P 01/30 1. Right upper quadrant stranding, likely centered on the second portion of the duodenum with duodenal wall thickening. This may reflect duodenitis. Acute cholecystitis or pancreatitis are considered less likely. No free air. 2. No bowel obstruction. No additional sites of bowel wall thickening on unenhanced exam. 3. Mild increase in caliber of a 3.5 cm infrarenal abdominal aortic aneurysm. Acute blood loss anemia due to UGI bleed, duodenal ulcer - Rectal bleeding resolved. No more bleeding or black stools. H &H has remained stable after 2 U PRBC. Hb 7.7->7.6->9.9->8.7->9->9.8->9 - S/p EGD and colonoscopy yesterday which showed large ulcer of posterior duodenal bulb. Other findings and recommendations from GI as below Colonoscopy findings Hemorrhoids Diverticulosis of the left colon 1 small polyp of descending colon (removed) EGD: Large ulcer of the posterior duodenal bulb Recommendations Protonix 40 mg twice daily for 6 weeks then 1 time daily for an additional 6 weeks oral iron supplementation for 6-8 weeks Repeat upper endoscopy in 3 months Avoid use of NSAIDs which patient does not take due to his CKD4 Pathology results pending- F/u with GI for the same Ok to resume anticoag per GI and started on coumadin yesterday. CKD4- Cr relatively stable close to baseline, currently 3.1. Avoid nephrotoxics. Follows up with Dr Magdaleno regularly DM2- BG well controlled. Continue SSI. Home oral meds on hold Paroxysmal Afib on coumadin- Currently NSR, on amiodarone, toprol. S/p coumadin reversal in ED on admission. GI okayed to start coumadin- started yesterday with 6mg, plan for 6 mg again today and resume his home dose from tomorrow (Home dose currently is 3 mg MWF and 1.5 mg on other days). He says he can check his INR daily at home and will follow up with [facility] for further dosing instructions. Also our administrative nursing supervisor reached out to [facility] to let them know of the plan. INR today 1.2 H/o CAD status post CABG- stable. HTN- BP stable, continue norvasc, toprol Infrarenal AAA- noted in CT, mild increase in caliber. F/u with PCP for surveillance. BP control adequate. He was seen by PT/OT and recommended rehab which he declined. Agreeable to home health, however he says he has a neighbour who is there for help whenever he needs. He is anxious to go home. He is comfortable and stable for discharge. Home Health Attestation I certify that this patient is under my care and that I, or a physicians marketing operations assistant working with me, had a face to-face encounter that meets the home health [id number] encounter requirements with this patient. The encounter with the patient was in whole, or in part, for the following medical condition, which is the primary reason for home health care (list medical condition): I certify that, based on my findings, the following services are medically necessary home health services: My clinical findings support the need for the above services because: OT Assess ADL Status and Restore Function w ADLs PT Assessment for Endurance / Balance / Strength Skilled Nsg Assessment Further, I certify that my clinical findings support that this patient is homebound (i.e. absences from home require considerable and taxing effort and are for medical reasons or temple services or infrequently or of short duration when for other reasons) because: Certification for Home Health Services: Based on the above findings, I certify that this patient is confined to the home and needs intermittent usp care, physical therapy and/or speech therapy or continues to need occupational therapy. The patient is under my care, and I have initiated the establishment of the plan of care. This patient will be followed by a physician who will periodically review the plan of care. Total Time Total Time Spent Total Time Spent (In Minutes): 45 Discharge Plan Discharge Items Patient Disposition: Home - Home Health Services Reason For Visit: ANEMIA; GI BLEED Discharge Diagnosis: Acute blood loss anemia due to UGI bleed, Duodenal ulcer Activity: Resume your previous activity Non-emergency contact: Primary Care Provider Call non-emergency contact if: you have any medication questions and your s ymptoms worsen Follow-up/Referrals: Eulogio Lugo DO [Primary Care Provider] - (Date & Time 02/09/2022 10:00 AM Provider Eulogio Lugo DO Department [facility] [address], [place] ) Diet: Carb Consistent or DM2 and Dialysis Renal Addtl Attending Provider Instructions: Take 6mg coumadin today and then go back to your regular dosing from tomorrow. Check INR daily and follow up with your coumadin clinic for further dosing instructions. You were found to have ulcer in duodenum. Take protonix 1 tab twice daily for 6 weeks then 1 tab daily for additional 6 weeks Take oral iron once daily for 6-8 weeeks Repeat upper endoscopy in 3 months to ensure healing of ulcer. You had a polyp removed- biopsy results are still pending. Follow up with the GI doctor for the same. Do not take any NSAIDs like advil, motrin etc-okay to take tylenol as needed. Follow up with your kidney doctor as scheduled Follow up with the family doctor in a week. Pending Studies at Discharge: Yes Studies:: Biopsy results Stand-Alone Forms: My [facility] [email or web address], Smoking Cessation Medications and DC Order Prescriptions: New ferrous sulfate 325 mg (65 mg iron) Tablet,Delayed Release (Dr/Ec) 325 mg PO QAM Qty: 30 RF: 0 Continued atorvastatin 80 mg tablet 80 mg PO DAILY RF: 0 amiodarone 200 mg tablet 200 mg PO DAILY RF: 0 metoprolol succinate 50 mg tablet extended release 24 hr 50 mg PO BID RF: 0 ondansetron HCl 4 mg tablet 4 mg PO Q12 PRN (Reason: Nausea) RF: 0 amlodipine 5 mg tablet 5 mg PO DAILY RF: 0 aspirin 81 mg Tablet,Delayed Release (Dr/Ec) 81 mg PO DAILY RF: 0 glipizide 2.5 mg tablet extended release 24 hr 2.5 mg PO DAILY RF: 0 nitroglycerin [Nitrostat] 0.4 mg Tablet, Sublingual 0.4 mg sublingual DIRECTED RF: 0 diphenhydramine-acetaminophen [Tylenol PM Extra Strength] 25-500 mg Tablet 1 tab PO HS PRN (Reason: Sleep) RF: 0 dutasteride 0.5 mg capsule 0.5 mg PO DAILY RF: 0 warfarin [Jantoven] 3 mg tablet See Rx Instructions .ROUTE .COMPLEX RF: 0 polyethylene glycol 3350 [Miralax] 17 gram Powder In Packet 17 g PO DAILY RF: 0 docusate sodium 100 mg Tablet 100 mg PO BID RF: 0 Changed pantoprazole 40 mg tablet,delayed release (DR/EC) 40 mg PO BID Qty: 60 RF: 0 Admission Data Admit Date/Time: 01/30/22 21:13 Attending Provider: Zain Vilchis Admit Provider: Anup Knox Primary Care Provider: Eulogio Lugo Other Providers: Anup Knox ; Damari Marks ; Sybil Hardy ; Delicia Lam ; Marilyn Miller ; Figueroa Beatty ; Kelvin Kimble ; Harris Padilla ; Tk Nava ; Yajaira Adams ; Ellie Stevenson ; Gisel Moreno ; Shannon Daley ; Axel Vizcarra ; [facility] Other Interventions: Discharge Summary Assessment (RN) Last Done: 02/03/22 13:58
== END 2022-02-04 14:09 | disposition home health service (06) | DRG 378 ==
LOC: ED 17:21 → SUATTDRO 21:13 → 2N 21:13

== ENCOUNTER 2022-08-29 06:11 | Inpatient (IN) ==
[2022-08-29] MEDS ORDERED: SODIUM CHLORIDE 0.9% 1000ML 1,000 ML IV SCH (07:00)
--- NOTE | 2022-08-29 07:02 | Emergency Department Note ---
Impression & Plan Sepsis, Acute UTI (urinary tract infection), Lactic acidosis, Acute confusion, Weakness, Hypomagnesemia ED Provider Note Name: SHERYL MARRUFO JR Age: 87 Sex: M Arrives Via: Ambulance Informant: Patient (poor historian), Family ED Provider: Luis Daniel Ferris MD Chief Complaint: Illness Impression: As per impressions above Medical Decision Makin-year-old gentleman with extensive past medical history including diabetes, chronic renal disease amongst others arrives for evaluation of worsening confusion. Patient has been having issues with an ulcer on the right heel. He was seen last evening for it and ruled out for osteomyelitis and he was set up for outpatient vascular follow-up given arterial stenosis in the legs. For the last few days worsening confusion and exhaustion however since getting home last night significantly worsening confusion and weakness. He started having chills this morning. Patient had received some gabapentin and narcotics last night which was initial thought for confusion. On evaluation patient is elderly/frail appearing in minimal distress somewhat dehydrated and is somnolent with answering some simple questions. Given story concern for sepsis. Septic work- up initiated with blood cultures lactic acid. He was empirically given IV Rocephin for presumed UTI symptoms given the reported increased urinary odor. Laboratory findings were remarkable for cell count which is new for the patient along with significantly elevated procalcitonin. Initial lactic acid was also elevated at 2.3. Patient was given 1 L IV normal saline bolus for fluid resuscitation. He was not given a full 30/kg IV fluid bolus due to his chronic renal disease and a creatinine of 3. Following initial bolus patient does appear improved and is better hydrated. He is not hypotensive at this time. In the setting of severe sepsis he was given vancomycin in addition to the Rocephin. Hospitalist was consulted for further management. Patient and family are comfortable with plan. Prior Medical Record and Triage/Nursing Notes reviewed by Me Chart reviewed by me included a wound care visit from August 24, 2022 discussing his diabetic right foot ulcer. Differentials:Infection, medication induced encephalopathy, electrolyte imbalance, acute renal failure, sepsis/severe sepsis/septic shock, neurologic amongst many other pathologies considered Vital Signs: reviewed and remarkable for unremarkable initial vital signs Interventions: Normal saline bolus 1 L IV, magnesium 1 g IV, Rocephin 2 g IV, vancomycin IV, normal saline infusion Labs:Reviewed and remarkable for procalcitonin and lactic acid consistent with infection. Blood cell count also concerning for infection. UA concerning for infection. I personally reviewed all other laboratory testing done during this time. Imaging: As per my interpretation 1 view chest x-ray reveals no infiltrate, effusion or congestive failure appreciated. As per my interpretation of 3 view xray of hip with pelvis reveals no fracture nor dislocation and does show significant arthritic changes EKG:As per my interpretation. Sinus rhythm with a first-degree AV block at 84 bpm and QTC of 434. There is no ectopy nor ischemia. When compared to EKG of January 30, 2022 there is no significant change. Cardiac/Tele Monitoring: Cardiac Monitoring: An Order was placed for continuous cardiac monitoring. The monitor shows a rate of 80 with a normal sinus rhythm. Consults:Dr Yashira Singleton hospitalist Plan: Disposition:Hospitalization. Condition: Good History of Present Illness:87-year-old gentleman arrives for evaluation of confusion. Patient had been seen last evening for an ulcer on his heel felt to be secondary to vascular atherosclerosis. He had been sent home with Percocet and gabapentin. Throughout the evening he is developed fevers, chills, confusion, and weakness. Family members note his urine has had an increased odor and frequency over the last week or 2. Patient is usually awake and interactive but at this point he is too confused. They are unable to get him up or walking around. Patient has not been eating or drinking well the last few days. No falls, trauma, injuries. Patient denies any headache, chest pain, shortness of breath, abdominal pain, back pain or other concerning signs or symptoms. Patient was started on Percocet and gabapentin last evening. He has not had any in the last few hours. Past History:CKD, diabetes, hypertension, PAF, hyperparathyroidism, CAD, anemia, TIA, GERD amongst multiple other medical issues Home Medications:See Below Allergies:NKDA Vitals:Blood Pressure: 114/60, Pulse 81, RR 27, T 36.6C, O2 95% on RA Physical Exam: GENERAL: Patient is tired/elderly/frail appearing and in minimal distress. EYES: No scleral icterus, unremarkable pupils. ENT: Mucous membranes dry, no nasal congestion. NECK: No masses appreciated, nomeningismus, trachea is midline. RESPIRATORY: No dyspnea. Clear to auscultation and equal bilaterally. No wheeze, no rhonchi. CARDIOVASCULAR: Regular rate and rhythm.No murmurs, rubs, gallops appreciated. GASTROINTESTINAL: Abdomen soft, non-tender, no peritonitis.Bowel sounds pos itive.No masses appreciated. EXTREMITIES: Normal motion all extremities, no cyanosis, no edema. NEUROLOGIC: Somnolent though does answer yes/no questions and appears to be oriented. No focal neurologic deficits appreciated SKIN: No rash, no jaundice, no diaphoresis. 1 cm dry ulceration of the right heel posteriorly without surrounding cellulitis ED Course: Times/Reassessments: Patient actually appears somewhat improved following fluid hydration and looks much more comfortable. Family agreeable to hospitalization. Critical Care: I have personally spent 35 minutes of critical care time in the direct management of this patient. Sepsis with resuscitation and findings of lactic acidosis. This was a life/limb threatening event. This 35 minutes is in excess of all separately billable procedures. Luis Daniel Ferris MD Past Med/Surg History Medical History (Updated 08/29/22 @ 14:26 by Luis Daniel Ferris MD) CAD (coronary artery disease) CKD (chronic kidney disease) stage 4, GFR 15-29 ml/min f/u dr sorensen [facility] nephrology CKD (chronic kidney disease), stage IV Diabetes mellitus Dyslipidemia History of benign prostatic hyperplasia w/LUTS History of pacemaker 06/09/21, [facility] w/ dr carrillo History of supraventricular tachycardia no "attacks" for at least 1 year; f/u [facility] cardio. HTN (hypertension) Hx of duodenal ulcer Hx of tachycardia-bradycardia syndrome Hx-TIA (transient ischemic attack) obtained from PCP note Hyperparathyroidism Hyperparathyroidism PAF (paroxysmal atrial fibrillation) f/u dr espinoza [facility] Poor historian medical record obtained from PCP, [facility]. Lugo [facility] Sensorineural hearing loss (SNHL) of both ears SVT (supraventricular tachycardia) T2DM (type 2 diabetes mellitus) Surgical History History of cataract extraction bilat. History of esophagogastroduodenoscopy (EGD) History of prostate surgery Hx of [place] [facility] [place]; f/u [facility] cardio. Hx of colonoscopy Family History Father , 72 Cancer Coronary heart disease Social History Smoking Status: Current every day smoker Tobacco Type: Pipe Second Hand Exposure: No; Hx Alcohol Use: No Hx Substance Use: No Preferred Language: Prydein[place] Communication Ability: Effective Form Drafter Required: No Beliefs That Will Affect Care: None marital status: / Current Living Situation: Family current occupational status: employed How many Children do You have: 1 Other Information That Helps Us Care for You: No Feels Safe at Home: Yes Safety Concerns: Feels Safe At This Time Assistive Devices: Glasses Allergies Allergies Allergy/AdvReac Type Severity Reaction Status Date / Time No Known Allergies Allergy Verified 08/24/22 08:46 Home Meds Home Medications Medication Instructions Recorded Confirmed amlodipine 5 mg tablet 5 mg PO QAM 10/30/21 08/29/22 aspirin 81 mg tablet,delayed 81 mg PO QAM 10/30/21 08/29/22 release atorvastatin 80 mg tablet 80 mg PO HS 10/30/21 08/29/22 diphenhydramine 25 1 tab PO HS PRN Sleep 10/30/21 08/29/22 mg-acetaminophen 500 mg tablet (Tylenol PM Extra Strength) dutasteride 0.5 mg capsule 0.5 mg PO HS 10/30/21 08/29/22 glipizide 2.5 mg tablet, extended 2.5 mg PO QAM 10/30/21 08/29/22 release 24 hr metoprolol succinate 50 mg 50 mg PO BID 10/30/21 08/29/22 tablet,extended release 24 hr nitroglycerin 0.4 mg sublingual 0.4 mg sublingual UD PRN Chest Pain 10/30/21 08/29/22 tablet (Nitrostat) docusate sodium 100 mg capsule 100 mg PO BID 06/16/22 08/29/22 magnesium 250 mg tablet 250 mg PO QAM 06/16/22 08/29/22 ondansetron HCl 4 mg tablet 4 mg PO Q12H PRN Nausea 06/16/22 08/29/22 pantoprazole 40 mg tablet,delayed 40 mg PO QAM 06/16/22 08/29/22 release polyethylene glycol 3350 17 17 g PO QAM 06/16/22 08/29/22 gram/dose oral powder (Miralax) warfarin 3 mg tablet 1.5 - 3 mg PO UD 06/16/22 08/29/22 Previous Rx's Medication Instructions Recorded ferrous sulfate 325 mg (65 mg 325 mg PO QAM #30 tabs 02/04/22 iron) tablet,delayed release lidocaine 5 % topical patch 1 patch topical DAILY PRN pain #15 08/25/22 ea oxycodone 5 mg tablet 5 mg PO Q8H PRN pain #9 tabs 08/25/22 gabapentin 300 mg capsule 300 mg PO TID #30 caps 08/29/22 Results & Data (ED) Vital Signs Vital Signs - 24 hr 08/29/22 06:18 08/29/22 06:54 08/29/22 08:00 Temperature 36.6 C Temperature Source Oral Pulse Rate 80 Pulse Rate [Left Finger] 81 90 Pulse Rhythm [Left Finger] Regular Regular Pulse Strength [Left Finger] Normal Normal Respiratory Rate 18 27 H 26 H Respiratory Effort / Characteristics Non-Labored Spontaneous Non-Labored Spontaneous Non-Labored Spontaneous Respiratory Depth Normal Normal Normal Respiratory Pattern Regular Regular Regular Blood Pressure 145/68 H Blood Pressure [Left Arm] 114/60 139/88 Blood Pressure Mean 93 Blood Pressure Mean [Left Arm] 78 105 Blood Pressure Position [Left Arm] Lying Sitting Pulse Oximetry 92 95 98 Oxygen Delivery Method Room Air Room Air Room Air Sepsis New/Unexplained Change in Mental Status N/A Sepsis Action Taken by Nursing No Action Required 08/29/22 09:00 Temperature Temperature Source Pulse Rate Pulse Rate [Left Finger] 88 Pulse Rhythm [Left Finger] Regular Pulse Strength [Left Finger] Normal Respiratory Rate 20 Respiratory Effort / Characteristics Non-Labored Spontaneous Respiratory Depth Normal Respiratory Pattern Regular Blood Pressure Blood Pressure [Left Arm] 143/73 H Blood Pressure Mean Blood Pressure Mean [Left Arm] 96 Blood Pressure Position [Left Arm] Sitting Pulse Oximetry 94 Oxygen Delivery Method Room Air Sepsis New/Unexplained Change in Mental Status Sepsis Action Taken by Nursing Laboratory Data 08/29/22 07:08 08/29/22 07:08 Lab Results 08/29/22 08/29/22 08/29/22 Range/Units 07:08 07:08 07:08 WBC 4.60 L (4.8-10.8) K/ul RBC 2.97 L (4.70-6.10) M/uL Hgb 9.9 L (14.0-18.0) g/dl Hct 28.8 L (42.0-52.0) % MCV 97.0 (80.0-100.0) fL MCH 33.3 (25.0-34.0) pg MCHC 34.4 (32.0-36.0) g/dL RDW Std Deviation 43.8 (36.4-46.3) fL RDW Coeff of Jaime 12.4 (11.5-14.5) % Plt Count 175 (130-400) K/uL MPV 9.6 (9.4-12.4) fL Immature Gran % (Auto) 0.2 % Neut % (Auto) 93.8 % Lymph % (Auto) 4.1 % [place] % (Auto) 0.4 % Eos % (Auto) 1.3 % Baso % (Auto) 0.2 % Neut # (Auto) 4.31 (1.40-6.50) K/uL Lymph # (Auto) 0.19 L (1.2-3.4) K/uL [place] # (Auto) 0.02 L (0.11-0.59) K/uL Eos # (Auto) 0.06 (0-0.50) K/uL Baso # (Auto) 0.01 (0-0.2) K/uL Immature Gran # (Auto) 0.01 (0.01-0.20) K/uL PT (9.0-12.0) Seconds INR (0.9-1.1) Sodium 138 (136-145) mmol/L Potassium 4.5 (3.5-5.1) mmol/L Chloride 109 H (98-107) mmol/L Carbon Dioxide 19 L (21-32) mmol/L Anion Gap 10 (3-11) BUN 60 H (6-23) mg/dl Creatinine 3.26 H (0.6-1.4) mg/dl Est Cr Clr Drug Dosing 16.8 ml/min Est GFR ( Amer) 18.8 ml/min Est GFR (Non-Af Amer) 16.3 ml/min BUN/Creatinine Ratio 18.4 (10-20) Glucose 89 (70-99(Fasting)) mg/dl Lactate 2.3 H* (0.4-2.0) mmol/L Calcium 8.8 (8.5-10.1) mg/dl Magnesium 1.2 L (1.7-2.4) mg/dl Total Bilirubin 0.5 (0.2-1.0) mg/dl Direct Bilirubin 0.1 (0-0.2) mg/dl AST 18 (13-39) U/L ALT 13 (7-52) U/L Alkaline Phosphatase 65 (34-104) U/L Troponin I High Sens 17.2 (0-20) pg/ml Total Protein 6.4 (6.0-8.3) gm/dl Albumin 3.6 (3.4-5.0) gm/dl Procalcitonin (0-0.5) ng/ml Urine Color Urine Appearance (Clear) Urine pH (4.5-7.5) Ur Specific [place] (1.000-1.030) Urine Protein (Negative) Urine Glucose (UA) (Negative) Urine Ketones (Negative) Urine Blood (Negative) Urine Nitrite (Negative) Urine Bilirubin (Negative) Urine Urobilinogen (Negative) Ur Leukocyte Esterase (Negative) Urine WBC (Auto) (0-5) /hpf Urine RBC (Auto) (0-4) /hpf U Hyaline Cast (Auto) (0-5) /lpf U Epithel Cells (Auto) (0-5) /lpf Urine Bacteria (Auto) (Negative) SARS-CoV-2 (PCR) (Negative) Influenza Type A (PCR) (Neg) Influenza Type B (PCR) (Neg) RSV (RT-PCR) (Neg) 08/29/22 08/29/22 08/29/22 Range/Units 07:08 07:08 08:14 WBC (4.8-10.8) K/ul RBC (4.70-6.10) M/uL Hgb (14.0-18.0) g/dl Hct (42.0-52.0) % MCV (80.0-100.0) fL MCH (25.0-34.0) pg MCHC (32.0-36.0) g/dL RDW Std Deviation (36.4-46.3) fL RDW Coeff of Jaime (11.5-14.5) % Plt Count (130-400) K/uL MPV (9.4-12.4) fL Immature Gran % (Auto) % Neut % (Auto) % Lymph % (Auto) % [place] % (Auto) % Eos % (Auto) % Baso % (Auto) % Neut # (Auto) (1.40-6.50) K/uL Lymph # (Auto) (1.2-3.4) K/uL [place] # (Auto) (0.11-0.59) K/uL Eos # (Auto) (0-0.50) K/uL Baso # (Auto) (0-0.2) K/uL Immature Gran # (Auto) (0.01-0.20) K/uL PT 25.2 H (9.0-12.0) Seconds INR 2.5 H (0.9-1.1) Sodium (136-145) mmol/L Potassium (3.5-5.1) mmol/L Chloride (98-107) mmol/L Carbon Dioxide (21-32) mmol/L Anion Gap (3-11) BUN (6-23) mg/dl Creatinine (0.6-1.4) mg/dl Est Cr Clr Drug Dosing ml/min Est GFR ( Amer) ml/min Est GFR (Non-Af Amer) ml/min BUN/Creatinine Ratio (10-20) Glucose (70-99(Fasting)) mg/dl Lactate (0.4-2.0) mmol/L Calcium (8.5-10.1) mg/dl Magnesium (1.7-2.4) mg/dl Total Bilirubin (0.2-1.0) mg/dl Direct Bilirubin (0-0.2) mg/dl AST (13-39) U/L ALT (7-52) U/L Alkaline Phosphatase (34-104) U/L Troponin I High Sens (0-20) pg/ml Total Protein (6.0-8.3) gm/dl Albumin (3.4-5.0) gm/dl Procalcitonin 7.65 H (0-0.5) ng/ml Urine Color Yellow Urine Appearance Cloudy A (Clear) Urine pH 8.0 H (4.5-7.5) Ur Specific [place] 1.013 (1.000-1.030) Urine Protein 2+ H (Negative) Urine Glucose (UA) Negative (Negative) Urine Ketones Negative (Negative) Urine Blood Trace H (Negative) Urine Nitrite Positive A (Negative) Urine Bilirubin Negative (Negative) Urine Urobilinogen Negative (Negative) Ur Leukocyte Esterase Negative (Negative) Urine WBC (Auto) 1-5 (0-5) /hpf Urine RBC (Auto) 0-4 (0-4) /hpf U Hyaline Cast (Auto) 1-5 (0-5) /lpf U Epithel Cells (Auto) 10-20 H (0-5) /lpf Urine Bacteria (Auto) 1+ H (Negative) SARS-CoV-2 (PCR) (Negative) Influenza Type A (PCR) (Neg) Influenza Type B (PCR) (Neg) RSV (RT-PCR) (Neg) 08/29/22 08/29/22 Range/Units 08:15 10:05 WBC (4.8-10.8) K/ul RBC (4.70-6.10) M/uL Hgb (14.0-18.0) g/dl Hct (42.0-52.0) % MCV (80.0-100.0) fL MCH (25.0-34.0) pg MCHC (32.0-36.0) g/dL RDW Std Deviation (36.4-46.3) fL RDW Coeff of Jaime (11.5-14.5) % Plt Count (130-400) K/uL MPV (9.4-12.4) fL Immature Gran % (Auto) % Neut % (Auto) % Lymph % (Auto) % [place] % (Auto) % Eos % (Auto) % Baso % (Auto) % Neut # (Auto) (1.40-6.50) K/uL Lymph # (Auto) (1.2-3.4) K/uL [place] # (Auto) (0.11-0.59) K/uL Eos # (Auto) (0-0.50) K/uL Baso # (Auto) (0-0.2) K/uL Immature Gran # (Auto) (0.01-0.20) K/uL PT (9.0-12.0) Seconds INR (0.9-1.1) Sodium (136-145) mmol/L Potassium (3.5-5.1) mmol/L Chloride (98-107) mmol/L Carbon Dioxide (21-32) mmol/L Anion Gap (3-11) BUN (6-23) mg/dl Creatinine (0.6-1.4) mg/dl Est Cr Clr Drug Dosing ml/min Est GFR ( Amer) ml/min Est GFR (Non-Af Amer) ml/min BUN/Creatinine Ratio (10-20) Glucose (70-99(Fasting)) mg/dl Lactate 1.4 (0.4-2.0) mmol/L Calcium (8.5-10.1) mg/dl Magnesium (1.7-2.4) mg/dl Total Bilirubin (0.2-1.0) mg/dl Direct Bilirubin (0-0.2) mg/dl AST (13-39) U/L ALT (7-52) U/L Alkaline Phosphatase (34-104) U/L Troponin I High Sens (0-20) pg/ml Total Protein (6.0-8.3) gm/dl Albumin (3.4-5.0) gm/dl Procalcitonin (0-0.5) ng/ml Urine Color Urine Appearance (Clear) Urine pH (4.5-7.5) Ur Specific [place] (1.000-1.030) Urine Protein (Negative) Urine Glucose (UA) (Negative) Urine Ketones (Negative) Urine Blood (Negative) Urine Nitrite (Negative) Urine Bilirubin (Negative) Urine Urobilinogen (Negative) Ur Leukocyte Esterase (Negative) Urine WBC (Auto) (0-5) /hpf Urine RBC (Auto) (0-4) /hpf U Hyaline Cast (Auto) (0-5) /lpf U Epithel Cells (Auto) (0-5) /lpf Urine Bacteria (Auto) (Negative) SARS-CoV-2 (PCR) NEGATIVE (Negative) Influenza Type A (PCR) Negative (Neg) Influenza Type B (PCR) Negative (Neg) RSV (RT-PCR) Negative (Neg) Administered Medications Sodium Chloride (Nss 1000ml) 1,000 mls @ 150 mls/hr IV .[id number] [facility] Stop: 09/28/22 08:29 Last Infusion: 08/29/22 11:48 Dose: 0 mls/hr Documented By: ИРИНА Admin: 08/29/22 08:30 Dose: 150 mls/hr Documented By: ИРИНА Discontinued Medications Sodium Chloride (Nss 1000ml) 1,000 mls @ 999 mls/hr IV .Q1H1M [facility] Stop: 08/29/22 08:00 Last Infusion: 08/29/22 08:11 Dose: 0 mls/hr Documented By: ИРИНА Admin: 08/29/22 07:10 Dose: 999 mls/hr Documented By: ИРИНА Ceftriaxone Sodium (Rocephin) 2,000 mg in 70 mls @ 140 mls/hr IV NOW STA Stop: 08/29/22 08:15 Last Infusion: 08/29/22 09:36 Dose: 0 mls/hr Documented By: ИРИНА Admin: 08/29/22 08:30 Dose: 140 mls/hr Documented By: ИРИНА Magnesium Sulfate/Dextrose (Magnesium Sulfate / D5w) 1 gm in 100 mls @ 100 mls/hr IV NOW STA Stop: 08/29/22 08:49 Last Infusion: 08/29/22 08:34 Dose: 0 mls/hr Documented By: ИРИНА Admin: 08/29/22 08:10 Dose: 100 mls/hr Documented By: ИРИНА Vancomycin HCl 1,750 mg/ (Sodium Chloride) 535 mls @ 200 mls/hr IV NOW ONE Stop: 08/29/22 10:58 Last Admin: 08/29/22 08:57 Dose: 200 mls/hr Documented By: ИРИНА Imaging Data Radiologist's Impression: Chest X-Ray 08/29/22 06:58 XR chest 1V portable CLINICAL HISTORY: Sepsis. COMPARISON STUDY: Chest radiograph January 30, 2022. FINDINGS: Left subclavian pacer and median sternotomy wires are noted. Cardiomegaly is unchanged. No evidence for pulmonary edema. Left basilar and right upper lobe interstitial thickening is chronic. No consolidation to suggest pneumonia. No pneumothorax or pleural effusion. IMPRESSION: No acute cardiopulmonary findings. No change in appearance of the chest. ACT 112: Negative or not required by law. Electronically signed by: Marc Leroy M.D. 08/29/2022 7:52 AM Hip X-Ray 08/29/22 07:50 XR hip RT min 2V CLINICAL HISTORY: Right hip pain. COMPARISON: CT of the abdomen and pelvis January 30, 2022. Pelvis radiograph June 16, 2019. FINDINGS: No fracture or osseous lesion is identified within the right hip. Moderate right hip osteoarthritis is noted with joint space narrowing and osteophytosis. This appears unchanged. Pelvic calcifications favor phlebolith. Vascular calcification is incidentally noted. IMPRESSION: 1. No acute fracture. 2. Moderate right hip osteoarthritis. ACT 112: Negative or not required by law. Electronically signed by: Marc Leroy M.D. 08/29/2022 8:15 AM Discharge Plan Visit Data Chief Complaint: Foot Injury/Pain Stated Complaint: Nausea, Vomiting ED Provider: Luis Daniel Ferris Discharge Problem: Sepsis, Acute UTI (urinary tract infection), Lactic acidosis, Acute confusion, Weakness, Hypomagnesemia Patient Disposition: Admitted As Inpatient Discharge Instructions Interventions: ED Discharge Assessment Last Done: 08/29/22 13:58 : Sepsis Qualifiers: Sepsis type: sepsis due to unspecified organism Sepsis acute organ dysfunction status: with acute organ dysfunction Severe sepsis acute organ dysfunction type: encephalopathy Severe sepsis shock status: without septic shock Qualified Code(s): A41.9 - Sepsis, unspecified organism
[2022-08-29 07:18] LABS: Hematocrit (blood only) 28.8 % (42.0-52.0); Hemoglobin 9.9 g/dl (14.0-18.0); Mean Corpuscular Hemoglobin 33.3 pg (25.0-34.0); Mean Corpuscular Hgb Conc 34.4 g/dL (32.0-36.0); Mean Platelet Volume 9.6 fL (9.4-12.4); Platelet Count 175 K/uL (130-400); RDW Coefficient of Variation 12.4 % (11.5-14.5); RDW Standard Deviation 43.8 fL (36.4-46.3); Red Blood Count 2.97 M/uL (4.70-6.10)
[2022-08-29 07:39] LABS: Basophils # (auto) 0.01 K/uL (0-0.2); Basophils % (auto) 0.2 %; Eosinophils # (auto) 0.06 K/uL (0-0.50); Eosinophils % (auto) 1.3 %; Immature Granulocytes # (auto) 0.01 K/uL (0.01-0.20); Immature Granulocytes % (auto) 0.2 %; Lymphocytes # (auto) 0.19 K/uL (1.2-3.4); Lymphocytes % (auto) 4.1 %; Monocytes # (auto) 0.02 K/uL (0.11-0.59); Monocytes % (auto) 0.4 %; Neutrophils # (auto) 4.31 K/uL (1.40-6.50); Neutrophils % (auto) 93.8 %
[2022-08-29] MEDS ORDERED: cefTRIAXone SODIUM 2,000 MG/70 ML BAG IV STA (07:46)
[2022-08-29 07:48] LABS: Albumin Level 3.6 gm/dl (3.4-5.0); Bilirubin Direct 0.1 mg/dl (0-0.2); Bilirubin,Total 0.5 mg/dl (0.2-1.0); Calcium 8.8 mg/dl (8.5-10.1); Magnesium 1.2 mg/dl (1.7-2.4); Potassium 4.5 mmol/L (3.5-5.1)
[2022-08-29] MEDS ORDERED: MAGNESIUM SULFATE / D5W 1 GM/100 ML BAG IV STA (07:50)
--- NOTE | 2022-08-29 07:53 | XRay Report ---
XR chest 1V portable CLINICAL HISTORY: Sepsis. COMPARISON STUDY: Chest radiograph January 30, 2022. FINDINGS: Left subclavian pacer and median sternotomy wires are noted. Cardiomegaly is unchanged. No evidence for pulmonary edema. Left basilar and right upper lobe interstitial thickening is chronic. N o consolidation to suggest pneumonia. No pneumothorax or pleural effusion. IMPRESSION: No acute cardiopulmonary findings. No change in appearance of the chest. ACT 112: Negative or not required by law. Electronically signed by: Marc Leroy M.D. 08/29/2022 7:52 AM
[2022-08-29 07:54] LABS: BUN Creatinine Ratio 18.4 (10-20); Creatinine Clr Calc Pharmacy 16.8 ml/min; Est GFR (African American) 18.8 ml/min; Est GFR (Non-African American) 16.3 ml/min; Total Protein 6.4 gm/dl (6.0-8.3); Troponin I High Sensitivity 17.2 pg/ml (0-20)
--- NOTE | 2022-08-29 08:16 | XRay Report ---
XR hip RT min 2V CLINICAL HISTORY: Right hip pain. COMPARISON: CT of the abdomen and pelvis January 30, 2022. Pelvis radiograph June 16, 2019. FINDINGS: No fracture or osseous lesion is identified within the right hip. Moderate right hip osteo arthritis is noted with joint space narrowing and osteophytosis. This appears unchanged. Pelvic calci fications favor phlebolith. Vascular calcification is incidentally noted. IMPRESSION: 1. No acute fracture. 2. Moderate right hip osteoarthritis. ACT 112: Negative or not required by law. Electronically signed by: Marc Leroy M.D. 08/29/2022 8:15 AM
[2022-08-29] MEDS ORDERED: VANCOMYCIN HCL 1,750 MG in SODIUM CHLORIDE 0.9% 500 ML IV ONE (08:18)
[2022-08-29] MEDS ORDERED: VANCOMYCIN CONSULT ACTIVE PRN (08:18)
[2022-08-29] MEDS: SODIUM CHLORIDE 0.9% 1000ML 1,000 ML IV SCH ×3 (08:30→20:07)
[2022-08-29 08:50] LABS: Appearance Urine Cloudy (Clear); Bacteria Urine Automated 1+ (Negative); Bilirubin Urine Negative (Negative); Blood Urine Trace (Negative); Color Urine Yellow; Glucose Urine UA Negative (Negative); Ketones Urine Negative (Negative); Leukocyte Esterase Urine Negative (Negative); Nitrite Urine Positive (Negative); RBC Urine Automated 0-4 /hpf (0-4); Specific Gravity Urine 1.013 (1.000-1.030); Urobilinogen Urine Negative (Negative)
[2022-08-29 08:52] LABS: Protein Urine 2+ (Negative)
[2022-08-29 09:13] LABS: Influenza A virus by PCR Negative (Neg); Influenza B virus by PCR Negative (Neg); RSV by PCR Negative (Neg); SARS CoV2 RNA(COVID-19) Ceph NEGATIVE (Negative)
[2022-08-29] MEDS ORDERED: NITROGLYCERIN SL 0.4 MG/TAB TAB SL PRN (10:27)
[2022-08-29] MEDS ORDERED: oxyCODONE HCL IR 5 MG TAB (IMMEDIATE RELEASE) PO PRN (10:27)
--- NOTE | 2022-08-29 10:52 | History & Physical Report ---
Date of Service August 29, 2022 Assessment & Plan (1) Metabolic encephalopathy: (2) UTI (urinary tract infection): (3) Ambulatory dysfunction: (4) Heel ulcer: (5) CKD (chronic kidney disease), stage IV: (6) PAF (paroxysmal atrial fibrillation): (7) HTN (hypertension): (8) T2DM (type 2 diabetes mellitus): Plan Metabolic encephalopathy: -likely 2/2 to UTI - not suspecting acute infection of the heel ulcer - procal elevated but pt has hx of CKD IV - LA elevated: s/p 2L NS ----repeat LA is normal -pts Outpt UCx is in the past positive for Aerococcus Urinae (3 months ago) ----UCx and BCx sent ---- Will continue on ceftriaxone IV 2g q24hr ---- did not continue vanc -pt currently has a urinary catheter: as the mental status improve will remove the catheter R heel ulcer with DMII and neuropathy: -the ulcer does not look infected -pt was started on gabapentin 300mg TID and oxycodone 5mg q8 prn as outpt ---- due to hx of CKD IV will lower the gabapentin to 100mg TID -wound care nurse consult -put an order for daily wound dressing change with heel foam padding for pressure support Ambulatory dysfunction: -2/2 R heel ulcer -family already spoke to [facility] and has a bed -Case management consult to help arrange discharge to [facility] when pt is ready -will get PT/OT eval: walks with walker at baseline CKD IV with chronic anemia: -Cr and hgb near pts baseline - due to recently started on gabapentin for neuropathy will monitor Cr/GFR Afib on Coumadin: -continue current Coumadin dose -will obtain PT/INR CAD s/p CABG/HTN: -continue Metoprolol, and amlodipine, aspirin and atorvastatin DMII: -hold oral DM meds -ISS Diet:heart healthy and diabetic DVT PPx: on coumadin Code Status: FULL CODE Emergency Contact: SON/POA- PHIL [phone] History of Present Illness Chief Complaint: AMS and UTI Primary Care Provider: Eulogio Lugo, Pt is a 87 y/o M with hx of CAD s/p CABG, CKD IV (bl Cr is 3-3.4) with chronic anemia (bl hgb ~10), Afib on Coumadin, tachy-yasmine syndrome s/p pacemaker, DMII, Mild Dementia, BPH, Recent hx of R heel ulcer brought in from home by family initially for intractable R heel pain and then for AMS with 2 episodes of nausea/Vomiting (NBNB). Per family: pt has been following up with [facility] wound care for R heel ulcer. He was dx with neuropathy and started on Gabapentin 300mg TID with oxycodone 5mg q8h prn. Due to the heel ulcer pt is having ambulatory dysfunction therefore family already spoke to [facility] detention and already has a bed available. At bedside: pt denied any CP, SOB, Dizziness, abd pain, N/V but complained for R heel pain. Allergies Allergy/AdvReac Type Severity Reaction Status Date / Time No Known Allergies Allergy Verified 08/24/22 08:46 Home Medications Medication Instructions Recorded Confirmed Type amlodipine 5 mg tablet 5 mg PO QAM 10/30/21 08/29/22 History aspirin 81 mg tablet,delayed 81 mg PO QAM 10/30/21 08/29/22 History release atorvastatin 80 mg tablet 80 mg PO HS 10/30/21 08/29/22 History diphenhydramine 25 1 tab PO HS PRN Sleep 10/30/21 08/29/22 History mg-acetaminophen 500 mg tablet (Tylenol PM Extra Strength) dutasteride 0.5 mg capsule 0.5 mg PO HS 10/30/21 08/29/22 History glipizide 2.5 mg tablet, extended 2.5 mg PO QAM 10/30/21 08/29/22 History release 24 hr metoprolol succinate 50 mg 50 mg PO BID 10/30/21 08/29/22 History tablet,extended release 24 hr nitroglycerin 0.4 mg sublingual 0.4 mg sublingual UD PRN Chest Pain 10/30/21 08/29/22 History tablet (Nitrostat) ferrous sulfate 325 mg (65 mg 325 mg PO QAM #30 tabs 02/04/22 08/29/22 Rx iron) tablet,delayed release docusate sodium 100 mg capsule 100 mg PO BID 06/16/22 08/29/22 History magnesium 250 mg tablet 250 mg PO QAM 06/16/22 08/29/22 History ondansetron HCl 4 mg tablet 4 mg PO Q12H PRN Nausea 06/16/22 08/29/22 History pantoprazole 40 mg tablet,delayed 40 mg PO QAM 06/16/22 08/29/22 History release polyethylene glycol 3350 17 17 g PO QAM 06/16/22 08/29/22 History gram/dose oral powder (Miralax) warfarin 3 mg tablet 1.5 - 3 mg PO UD 06/16/22 08/29/22 History lidocaine 5 % topical patch 1 patch topical DAILY PRN pain #15 08/25/22 08/29/22 Rx ea oxycodone 5 mg tablet 5 mg PO Q8H PRN pain #9 tabs 08/25/22 08/29/22 Rx gabapentin 300 mg capsule 300 mg PO TID #30 caps 08/29/22 08/29/22 Rx Past Med/Surg History Medical History (Updated 08/29/22 @ 10:51 by Mini Soliz MD) CAD (coronary artery disease) CKD (chronic kidney disease) stage 4, GFR 15-29 ml/min f/u dr sorensen, [facility] nephrology CKD (chronic kidney disease), stage IV Diabetes mellitus Dyslipidemia History of benign prostatic hyperplasia w/LUTS History of pacemaker 06/09/21, [facility] w/ dr carrillo History of supraventricular tachycardia no "attacks" for at least 1 year; f/u [facility] cardio. HTN (hypertension) Hx of duodenal ulcer Hx of tachycardia-bradycardia syndrome Hx-TIA (transient ischemic attack) obtained from PCP note Hyperparathyroidism Hyperparathyroidism PAF (paroxysmal atrial fibrillation) f/u dr espinoza [facility] Poor historian medical record obtained from PCP, Dr. Lugo [facility] Sensorineural hearing loss (SNHL) of both ears SVT (supraventricular tachycardia) T2DM (type 2 diabetes mellitus) Surgical History History of cataract extraction bilat. History of esophagogastroduodenoscopy (EGD) History of prostate surgery Hx of CABG hx 08/02/2003, [facility], x 3 bipasses; f/u [facility] cardio. Hx of colonoscopy Family History Father , 72 Cancer Coronary heart disease Social History Smoking Status: Never smoker Tobacco Type: Pipe Second Hand Exposure: No; Hx Alcohol Use: Yes Alcohol type: beer Alcohol type Comment: wednesday will have 3 beers. Sun 1-2 beers Hx Substance Use: No Preferred Language: Persian Communication Ability: Effective Auto Clutch Rebuilder Required: No Beliefs That Will Affect Care: None marital status: / Current Living Situation: Alone current occupational status: employed How many Children do You have: 1 Feels Safe at Home: Yes Assistive Devices: Cane and Glasses Review of Systems Review of Systems: At least 10 Review of systems were reviewed and all negative except as indicated in HPI Physical Exam Physical Exam: General:appeared a little drowsy, NAD, well developed, well nourished, average body habitus HEENT:. Normocephalic and atraumatic, Normal Conjunctiva, EOMI, Sclera is non- icteric Lungs:. No signs of respiratory distress, CTA, no wheezing or crackles Heart:. Normal S1, S2, no murmur Abdominal:. ND, Soft, NT MSK:.b/l trace LE pitting edema Neuro: CN II-XII intact, PERRLA, overall normal strength Skin:R posterior heel: 1x1 cm stage 2 ulcers, no skin erythema or drainage or bleeding Psych:AAOx2 (person and place only), normal affect Results & Data Results & Data ([facility]) Vital Signs (Past 12 Hours) Vital Signs Temp Pulse Pulse Resp BP BP Pulse Ox 08/29/22 09:00 88 20 143/73 H 94 08/29/22 08:00 90 26 H 139/88 98 08/29/22 06:54 81 27 H 114/60 95 08/29/22 06:18 36.6 C 80 18 145/68 H 92 O2 Del Method 08/29/22 09:00 Room Air 08/29/22 08:00 Room Air 08/29/22 06:54 Room Air 08/29/22 06:18 Room Air Laboratory Results Short CBC 08/29/22 Range/Units 07:08 WBC 4.60 L (4.8-10.8) K/ul Hgb 9.9 L (14.0-18.0) g/dl Hct 28.8 L (42.0-52.0) % Plt Count 175 (130-400) K/uL BMP 08/29/22 07:08 Sodium 138 Potassium 4.5 Chloride 109 H Carbon Dioxide 19 L BUN 60 H Creatinine 3.26 H Glucose 89 Calcium 8.8 Liver Function 08/29/22 Range/Units 07:08 Total Bilirubin 0.5 (0.2-1.0) mg/dl Direct Bilirubin 0.1 (0-0.2) mg/dl AST 18 (13-39) U/L ALT 13 (7-52) U/L Alkaline Phosphatase 65 (34-104) U/L Albumin 3.6 (3.4-5.0) gm/dl Urine 08/29/22 Range/Units 08:14 Urine Color Yellow Urine Appearance Cloudy A (Clear) Urine pH 8.0 H (4.5-7.5) Ur Specific Perry 1.013 (1.000-1.030) Urine Protein 2+ H (Negative) Urine Glucose (UA) Negative (Negative) Diagnostic Findings Chest X-Ray 08/29/22 06:58 XR chest 1V portable CLINICAL HISTORY: Sepsis. COMPARISON STUDY: Chest radiograph January 30, 2022. FINDINGS: Left subclavian pacer and median sternotomy wires are noted. Cardiomegaly is unchanged. No evidence for pulmonary edema. Left basilar and right upper lobe interstitial thickening is chronic. No consolidation to suggest pneumonia. No pneumothorax or pleural effusion. IMPRESSION: No acute cardiopulmonary findings. No change in appearance of the chest. ACT 112: Negative or not required by law. Electronically signed by: Marc Leroy M.D. 08/29/2022 7:52 AM Hip X-Ray 08/29/22 07:50 XR hip RT min 2V CLINICAL HISTORY: Right hip pain. COMPARISON: CT of the abdomen and pelvis January 30, 2022. Pelvis radiograph June 16, 2019. FINDINGS: No fracture or osseous lesion is identified within the right hip. Moderate right hip osteoarthritis is noted with joint space narrowing and osteophytosis. This appears unchanged. Pelvic calcifications favor phlebolith. Vascular calcification is incidentally noted. IMPRESSION: 1. No acute fracture. 2. Moderate right hip osteoarthritis. ACT 112: Negative or not required by law. Electronically signed by: Marc Leroy M.D. 08/29/2022 8:15 AM Code Status & VTE Plan VTE Prophylaxis Plan VTE Prophylaxis will be ordered: Yes
[2022-08-29 12:22] LABS: INR 2.5 (0.9-1.1); Prothrombin Time 25.2 Seconds (9.0-12.0)
[2022-08-29] MEDS ORDERED: GLUCAGON FOR INJ 1 MG VIAL SQ PRN (12:50)
[2022-08-29] MEDS ORDERED: DEXTROSE 50% 50 ML SYRINGE IV PRN (12:50)
[2022-08-29] MEDS ORDERED: GLUCOSE 10 TAB/TUBE PO PRN (12:50)
[2022-08-29] MEDS ORDERED: GLUCOSE 40% GEL 15 GM TUBE PO PRN (12:50)
[2022-08-29] MEDS ORDERED: CARBOHYDRATES FOR HYPOGLYCEMIA PO PRN (12:50)
[2022-08-29] MEDS ORDERED: ONDANSETRON INJ 2 MG/ML 2 ML VIAL IV PRN (12:50)
[2022-08-29] MEDS ORDERED: diphenhydrAMINE Capsule 25 MG CAP PO PRN (13:37)
[2022-08-29] MEDS: INSULIN ASPART PER UNIT SC SCH ×3 (14:26→20:41)
[2022-08-29] MEDS: GABAPENTIN 100 MG CAP PO SCH ×2 (14:56→20:04)
[2022-08-29] MEDS: WARFARIN SOD 1 MG TAB PO SCH (18:12)
[2022-08-29] MEDS: WARFARIN SOD 0.5 MG TAB PO SCH (18:12)
[2022-08-29] MEDS: METOPROLOL SUCC 50MG EXT REL TAB PO SCH (20:05)
[2022-08-29] MEDS: ATORVASTATIN 40 MG TAB PO SCH (20:05)
[2022-08-29] MEDS: DOCUSATE SODIUM 100 MG CAP PO SCH (20:06)
[2022-08-29] MEDS: ACETAMINOPHEN 325 MG TAB PO PRN (20:16)
[2022-08-29] MEDS: PT'S OWN MED: DUTASTERIDE 0.5MG PO SCH (20:39)
[2022-08-29] MEDS ORDERED: WARFARIN SOD 3 MG TAB PO SCH (21:00)
[2022-08-30] MEDS: SODIUM CHLORIDE 0.9% 1000ML 1,000 ML IV SCH ×3 (03:18→17:27)
[2022-08-30] MEDS: cefTRIAXone SODIUM 2,000 MG in DEXTROSE 5% 50 ML IV SCH (06:00)
[2022-08-30 07:36] LABS: Basophils # (auto) 0.04 K/uL (0-0.2); Basophils % (auto) 0.3 %; Eosinophils # (auto) 0.13 K/uL (0-0.50); Eosinophils % (auto) 1.1 %; Hematocrit (blood only) 25.8 % (42.0-52.0); Hemoglobin 8.6 g/dl (14.0-18.0); Immature Granulocytes # (auto) 0.05 K/uL (0.01-0.20); Immature Granulocytes % (auto) 0.4 %; Lymphocytes # (auto) 0.54 K/uL (1.2-3.4); Lymphocytes % (auto) 4.6 %; Mean Corpuscular Hgb Conc 33.3 g/dL (32.0-36.0); Mean Corpuscular Volume 98.9 fL (80.0-100.0); Monocytes # (auto) 0.79 K/uL (0.11-0.59); Monocytes % (auto) 6.7 %; Neutrophils # (auto) 10.27 K/uL (1.40-6.50); Neutrophils % (auto) 86.9 %; Platelet Count 148 K/uL (130-400); RDW Coefficient of Variation 12.7 % (11.5-14.5); RDW Standard Deviation 46.1 fL (36.4-46.3); Red Blood Count 2.61 M/uL (4.70-6.10); White Blood Count 11.82 K/ul (4.8-10.8)
--- NOTE | 2022-08-30 07:40 | Electrocardiogram Report ---
Test Reason : Blood Pressure : / mmHG Vent. Rate : 084 BPM Atrial Rate : 084 BPM P-R Int : 224 ms QRS Dur : 090 ms QT Int : 368 ms P-R-T Axes : 053 019 093 degrees QTc Int : 434 ms Sinus rhythm with 1st degree A-V block Abnormal ECG When compared with ECG of 30-JAN-2022 17:40, Sinus rhythm has replaced Electronic atrial pacemaker T wave inversion now evident in Lateral leads Confirmed by Dony Celeste ([id number]) on 08/30/2022 7:39:43 AM Referred By: REFERRED SELF Confirmed By:Kristofer Celeste
[2022-08-30 08:10] LABS: Bilirubin,Total 0.3 mg/dl (0.2-1.0); Magnesium 1.6 mg/dl (1.7-2.4); Potassium 4.4 mmol/L (3.5-5.1)
[2022-08-30] MEDS: INSULIN ASPART PER UNIT SC SCH ×4 (08:14→21:06)
[2022-08-30 08:16] LABS: Albumin Globulin Ratio 1.2 (0.9-2); Creatinine Clr Calc Pharmacy 18.9 ml/min; Est GFR (African American) 21.8 ml/min; Est GFR (Non-African American) 18.8 ml/min; Globulin 2.5 gm/dl (2.5-4.0); Total Protein 5.5 gm/dl (6.0-8.3)
[2022-08-30] MEDS: POLYETHYLENE (MIRALAX) 17 GM PACK PO SCH (08:33)
[2022-08-30] MEDS: MAGNESIUM OXIDE 400 MG TAB PO SCH (08:34)
[2022-08-30] MEDS: GABAPENTIN 100 MG CAP PO SCH ×3 (08:34→19:51)
[2022-08-30] MEDS: ASPIRIN 81 MG ECTAB PO SCH (08:34)
[2022-08-30] MEDS: METOPROLOL SUCC 50MG EXT REL TAB PO SCH ×2 (08:34→19:50)
[2022-08-30] MEDS: amLODIPine BESYLATE 5 MG TAB PO SCH (08:34)
[2022-08-30] MEDS: FERROUS SULFATE 325 MG TAB PO SCH (08:34)
[2022-08-30] MEDS: PANTOprazole 40 MG TAB PO SCH (08:34)
[2022-08-30] MEDS: DOCUSATE SODIUM 100 MG CAP PO SCH ×2 (08:34→19:50)
[2022-08-30] MEDS: ACETAMINOPHEN 325 MG TAB PO PRN (08:39)
[2022-08-30 08:52] LABS: Prothrombin Time 29.7 Seconds (9.0-12.0)
[2022-08-30] MEDS ORDERED: MAGNESIUM SULFATE / D5W 1 GM/100 ML BAG IV ONE (09:20)
[2022-08-30] MEDS: WARFARIN SOD 0.5 MG TAB PO SCH (15:29)
[2022-08-30] MEDS: WARFARIN SOD 1 MG TAB PO SCH (15:29)
--- NOTE | 2022-08-30 16:46 | Hospitalist Progress Note ---
Date of Service August 30, 2022 Assessment & Plan (1) Metabolic encephalopathy: (2) UTI (urinary tract infection): (3) Ambulatory dysfunction: (4) Heel ulcer: (5) CKD (chronic kidney disease), stage IV: (6) PAF (paroxysmal atrial fibrillation): (7) HTN (hypertension): (8) T2DM (type 2 diabetes mellitus): Plan Metabolic encephalopathy: Possible related to uti vs Possible R heel ulcer infected versus medication (gabapentin and oxycodone) plan Elevated procalcitonin Received IV ceftriaxone and vancomycin in the ER Blood culture no growth and urine culture pending currently on IV ceftriaxone 2 g daily Continue monitor closely R heel ulcer with DMII and neuropathy: No sign of infection gabapentin decreased to 100mg TID Wound care consult Ambulatory dysfunction: Mostly due to R heel ulcer Continue PT/OT CKD IV Creatinine 2.8 today with baseline 2.9 to 3.1 Avoid nephrotoxic agents Continue monitor BMP Afib rate control with metoprolol Continue monitor PT/INR CAD s/p CABG/HTN: Denies any chest pain continue Metoprolol, and amlodipine, aspirin and atorvastatin DMII: -hold oral DM meds -ISS Diet:heart healthy and diabetic DVT PPx: on coumadin Code Status: FULL CODE Emergency Contact: SON/POJeniffer- PHIL [phone] Admission and Anticipated Discharge Date Admission Date: August 29, 2022 Subjective Pt was seen and examined for follow up of right heel pain and confusion Lying in bed with no acute distress Py said that right heel pain improves significantly He said that he feels ok He said that he was able to walk to the bathroom with no difficulty Denies any chest pain, palpitation and SOB Review of Systems Review of Systems: All systems reviewed & are unremarkable except as noted in Subjective Physical Exam Physical Exam: General- No acute distress Head- atraumatic Eyes- PERRL, EOMI, ENT- oropharynx clear Neck- supple, no JVD Lungs- clear to auscultation Heart- regular rhythm; no murmur Abdomen- normal bowel sounds, soft, nontender Extremities- no calf tenderness, +edema B/L , right heel ulcer with no erythema and drainage Neuro- alert, oriented x 3; PERRL, EOMI; no facial palsy; no dysarthria Skin- warm & dry Results & Data Results & Data ([facility]) Vital Signs (Past 12 Hours) Vital Signs Temp Pulse Resp BP Pulse Ox O2 Del Method 08/30/22 14:43 36.4 C L 66 18 151/70 H 96 Room Air 08/30/22 07:22 36.9 C 65 18 138/66 97 Room Air
[2022-08-30] MEDS: ATORVASTATIN 40 MG TAB PO SCH (19:50)
[2022-08-30] MEDS: PT'S OWN MED: DUTASTERIDE 0.5MG PO SCH (19:51)
[2022-08-31] MEDS: SODIUM CHLORIDE 0.9% 1000ML 1,000 ML IV SCH ×2 (00:12→06:36)
[2022-08-31] MEDS: cefTRIAXone SODIUM 2,000 MG in DEXTROSE 5% 50 ML IV SCH (06:35)
[2022-08-31 07:20] LABS: Estimated Average Glucose 137 mg/dl; Hemoglobin A1C 6.4 % (4.5-5.6)
[2022-08-31] MEDS: ACETAMINOPHEN 325 MG TAB PO PRN (07:37)
[2022-08-31 08:46] LABS: Hematocrit (blood only) 28.8 % (42.0-52.0); Hemoglobin 9.7 g/dl (14.0-18.0); Mean Corpuscular Hemoglobin 32.4 pg (25.0-34.0); Mean Corpuscular Hgb Conc 33.7 g/dL (32.0-36.0); Mean Corpuscular Volume 96.3 fL (80.0-100.0); Mean Platelet Volume 9.8 fL (9.4-12.4); Platelet Count 158 K/uL (130-400); RDW Coefficient of Variation 12.4 % (11.5-14.5); RDW Standard Deviation 43.8 fL (36.4-46.3); Red Blood Count 2.99 M/uL (4.70-6.10); White Blood Count 8.65 K/ul (4.8-10.8)
[2022-08-31] MEDS: INSULIN ASPART PER UNIT SC SCH ×4 (08:50→21:05)
[2022-08-31] MEDS: ASPIRIN 81 MG ECTAB PO SCH (08:52)
[2022-08-31] MEDS: amLODIPine BESYLATE 5 MG TAB PO SCH ×2 (08:52→08:53)
[2022-08-31] MEDS: POLYETHYLENE (MIRALAX) 17 GM PACK PO SCH (08:53)
[2022-08-31] MEDS: FERROUS SULFATE 325 MG TAB PO SCH (08:53)
[2022-08-31] MEDS: METOPROLOL SUCC 50MG EXT REL TAB PO SCH ×2 (08:53→19:43)
[2022-08-31] MEDS: DOCUSATE SODIUM 100 MG CAP PO SCH ×2 (08:53→19:43)
[2022-08-31] MEDS: PANTOprazole 40 MG TAB PO SCH (08:53)
[2022-08-31] MEDS: MAGNESIUM OXIDE 400 MG TAB PO SCH (08:53)
[2022-08-31] MEDS: GABAPENTIN 100 MG CAP PO SCH ×3 (08:53→19:43)
[2022-08-31 09:03] LABS: Calcium 8.3 mg/dl (8.5-10.1); Potassium 4.6 mmol/L (3.5-5.1)
[2022-08-31 09:04] LABS: INR 2.3 (0.9-1.1)
[2022-08-31 09:08] LABS: Creatinine Clr Calc Pharmacy 18.9 ml/min; Est GFR (African American) 21.8 ml/min; Est GFR (Non-African American) 18.8 ml/min
--- NOTE | 2022-08-31 15:34 | Hospitalist Progress Note ---
Date of Service August 31, 2022 Assessment & Plan (1) Metabolic encephalopathy: (2) UTI (urinary tract infection): (3) Ambulatory dysfunction: (4) Heel ulcer: (5) CKD (chronic kidney disease), stage IV: (6) PAF (paroxysmal atrial fibrillation): (7) HTN (hypertension): (8) T2DM (type 2 diabetes mellitus): Plan Metabolic encephalopathy: Possible related to uti vs Possible R heel ulcer infected versus medication (gabapentin and oxycodone) plan Elevated procalcitonin Received IV ceftriaxone and vancomycin in the ER Blood culture no growth and urine culture no growth currently on IV ceftriaxone 2 g daily Continue monitor closely R heel ulcer with DMII and neuropathy: No sign of infection Gabapentin decreased to 100mg TID, Consider to discontinue Wound care on board Ambulatory dysfunction: Mostly due to R heel ulcer Continue PT/OT Anemia Hgb stable at 9.8 continue monitor CBC CKD IV Creatinine 2.8 today with baseline 2.9 to 3.1 Avoid nephrotoxic agents Continue monitor BMP Afib rate control with metoprolol Continue monitor PT/INR CAD s/p CABG/HTN: Denies any chest pain continue Metoprolol, and amlodipine, aspirin and atorvastatin DMII: -hold oral DM meds -ISS Diet:heart healthy and diabetic DVT PPx: on coumadin Code Status: FULL CODE Emergency Contact: SON/BEAU- PHIL [phone] Admission and Anticipated Discharge Date Admission Date: August 29, 2022 Subjective Pt was seen and examined for follow up of right heel pain and confusion Lying in bed with no acute distress He said that he feels ok Plan to call son later to provide with update Denies any chest pain, palpitation, dizziness and SOB Review of Systems Review of Systems: All systems reviewed & are unremarkable except as noted in Subjective Physical Exam Physical Exam: General- No acute distress Head- atraumatic Eyes- PERRL, EOMI, ENT- oropharynx clear Neck- supple, no JVD Lungs- clear to auscultation Heart- regular rhythm; no murmur Abdomen- normal bowel sounds, soft, nontender Extremities- no calf tenderness, +edema B/L , right heel ulcer with no erythema and drainage Neuro- alert, oriented x 3; PERRL, EOMI; no facial palsy; no dysarthria Skin- warm & dry Results & Data Results & Data ([facility]) Vital Signs (Past 12 Hours) Vital Signs Temp Pulse Resp BP Pulse Ox O2 Del Method 08/31/22 14:44 36.5 C 62 16 143/72 H 100 Room Air 08/31/22 07:15 36.7 C 73 16 147/70 H 94 Room Air
[2022-08-31] MEDS ORDERED: WARFARIN SOD 3 MG TAB PO SCH (16:00)
[2022-08-31] MEDS: PT'S OWN MED: DUTASTERIDE 0.5MG PO SCH (19:43)
[2022-08-31] MEDS: ATORVASTATIN 40 MG TAB PO SCH (19:43)
[2022-09-01] MEDS: cefTRIAXone SODIUM 2,000 MG in DEXTROSE 5% 50 ML IV SCH (06:45)
[2022-09-01 07:43] LABS: INR 2.1 (0.9-1.1); Prothrombin Time 21.4 Seconds (9.0-12.0)
[2022-09-01] MEDS: METOPROLOL SUCC 50MG EXT REL TAB PO SCH ×2 (09:01→19:38)
[2022-09-01] MEDS: GABAPENTIN 100 MG CAP PO SCH ×3 (09:02→19:38)
[2022-09-01] MEDS: DOCUSATE SODIUM 100 MG CAP PO SCH ×2 (09:02→19:38)
[2022-09-01] MEDS: ASPIRIN 81 MG ECTAB PO SCH (09:03)
[2022-09-01] MEDS: PANTOprazole 40 MG TAB PO SCH (09:03)
[2022-09-01] MEDS: MAGNESIUM OXIDE 400 MG TAB PO SCH (09:03)
[2022-09-01] MEDS: FERROUS SULFATE 325 MG TAB PO SCH (09:03)
[2022-09-01] MEDS: INSULIN ASPART PER UNIT SC SCH ×4 (09:04→21:46)
[2022-09-01] MEDS: POLYETHYLENE (MIRALAX) 17 GM PACK PO SCH (09:04)
--- NOTE | 2022-09-01 15:43 | Hospitalist Progress Note ---
Date of Service September 01, 2022 Assessment & Plan (1) Metabolic encephalopathy: (2) UTI (urinary tract infection): (3) Ambulatory dysfunction: (4) Heel ulcer: (5) CKD (chronic kidney disease), stage IV: (6) PAF (paroxysmal atrial fibrillation): (7) HTN (hypertension): (8) T2DM (type 2 diabetes mellitus): Plan Metabolic encephalopathy Ambulatory dysfunction Seems to be medication induced from oxycodone. UTI ruled out. Right heel ulcer does not appear to be infected, no signs of osteomyelitis on CT scan. Blood cultures no growth. Patient received IV ceftriaxone and vancomycin in the ED. Given elevated procalcitonin, patient was empirically started on IV ceftriaxone (day 3) --will DC and monitor off antibiotics. Awaiting placement to SNF for rehab R heel ulcer with DMII and neuropathy No sign of infection Patient prescribed gabapentin 300 mg TID during recent ED visit however did not take any doses at home. Patient started on gabapentin 100 mg TID during admission and seems to have helped RLE pain. Son does not think patient has returned to baseline, will reduce gabapentin to 100mg BID. Wound care on board PAD Arterial duplex shows hemodynamically significant stenosis within the right popliteal artery Follow-up with vascular as an outpatient Anemia Hgb stable at 9.7 on 08/31/2022 continue monitor CBC CKD IV Creatinine 2.8 on 08/31/2022 with baseline 2.9 to 3.1 Avoid nephrotoxic agents Continue monitor BMP Afib rate control with metoprolol On Coumadin, INR 2.1 CAD s/p CABG/HTN Appears stable, no reports of chest pain continue Metoprolol, and amlodipine, aspirin and atorvastatin DMII Hgb A1c 6.4 Hold oral agents utilize NovoLog per protocol while hospitalized DVT PROPHYLAXIS On Coumadin, INR 2.1 Dispo-medically stable for discharge, awaiting placement, case management following Admission and Anticipated Discharge Date Admission Date: August 29, 2022 Supervising Physician Co-Signing Physician Notes Pt was seen and examined. Agreed with Yolanda GARCIA's exam, assessment and plan. His mental status improves. Continue PT/OT. Fall precaution. Waiting for placement to rehab. MD Michaelle Subjective Follow-up for metabolic encephalopathy. Patient seen and examined. Offers no complaints. Patient reports episodic confusion overnight however mental status seems to have returned to baseline. Reports RLE pain has resolved. No chest pain or shortness of breath. Denies abdominal pain or nausea. Review of Systems Review of Systems: ROS per HPI, all other systems reviewed and negative Physical Exam Constitutional: WD/WN, vitals as above Respiratory: normal respiratory effort, lungs clear to auscultation Cardiovascular: Rate/Rhythm: regular rate and regular rhythm Vessels: normal peripheral pulses Extremities: no edema Gastrointestinal (Abdomen): Percussion/Palpation: abdomen soft; abdomen nontender Skin: no rashes, warm and dry Neurologic: no focal motor deficits Psychiatric: A+Ox3, euthymic affect Results & Data Results & Data ([facility]) Vital Signs (Past 12 Hours) Vital Signs Temp Pulse Resp BP Pulse Ox O2 Del Method 09/01/22 15:00 36.6 C 64 16 170/81 H 97 Room Air 09/01/22 09:17 Room Air 09/01/22 07:43 36.8 C 61 16 161/84 H 95 Room Air
[2022-09-01] MEDS: WARFARIN SOD 1 MG TAB PO SCH (15:54)
[2022-09-01] MEDS: WARFARIN SOD 0.5 MG TAB PO SCH (15:55)
[2022-09-01] MEDS: PT'S OWN MED: DUTASTERIDE 0.5MG PO SCH (19:38)
[2022-09-01] MEDS: ATORVASTATIN 40 MG TAB PO SCH (19:38)
[2022-09-02 07:37] LABS: BUN Creatinine Ratio 16.4 (10-20); Calcium 8.5 mg/dl (8.5-10.1); Est GFR (African American) 23.2 ml/min; Est GFR (Non-African American) 20.1 ml/min; Potassium 4.6 mmol/L (3.5-5.1)
[2022-09-02 07:42] LABS: INR 2.1 (0.9-1.1); Prothrombin Time 21.2 Seconds (9.0-12.0)
[2022-09-02] MEDS: amLODIPine BESYLATE 5 MG TAB PO SCH (08:04)
[2022-09-02] MEDS: GABAPENTIN 100 MG CAP PO SCH (08:05)
[2022-09-02] MEDS: ASPIRIN 81 MG ECTAB PO SCH (08:05)
[2022-09-02] MEDS: METOPROLOL SUCC 50MG EXT REL TAB PO SCH (08:06)
[2022-09-02] MEDS: DOCUSATE SODIUM 100 MG CAP PO SCH (08:12)
[2022-09-02] MEDS: PANTOprazole 40 MG TAB PO SCH (08:13)
[2022-09-02] MEDS: FERROUS SULFATE 325 MG TAB PO SCH (08:13)
[2022-09-02] MEDS: MAGNESIUM OXIDE 400 MG TAB PO SCH (08:14)
[2022-09-02] MEDS: POLYETHYLENE (MIRALAX) 17 GM PACK PO SCH (08:14)
[2022-09-02] MEDS: INSULIN ASPART PER UNIT SC SCH (08:16)
[2022-09-02] MEDS ORDERED: hydrALAZINE HCL 20 MG/ML VIAL IV ONE (09:49)
--- NOTE | 2022-09-02 11:28 | Discharge Summary ---
Date of Service September 02, 2022 Admission HPI Per Admitting Provider Pt is a 87 y/o M with hx of CAD s/p CABG, CKD IV (bl Cr is 3-3.4) with chronic anemia (bl hgb ~10), Afib on Coumadin, tachy-yasmine syndrome s/p pacemaker, DMII, Mild Dementia, BPH, Recent hx of R heel ulcer brought in from home by family initially for intractable R heel pain and then for AMS with 2 episodes of nausea/Vomiting (NBNB). Per family: pt has been following up with [facility] wound care for R heel ulcer. He was dx with neuropathy and started on Gabapentin 300mg TID with oxycodone 5mg q8h prn. Due to the heel ulcer pt is having ambulatory dysfunction therefore family already spoke to [facility] and already has a bed available. At bedside: pt denied any CP, SOB, Dizziness, abd pain, N/V but complained for R heel pain. Admission Exam Per Admitting Provider General:appeared a little drowsy,NAD, well developed, well nourished, average body habitus HEENT:.Normocephalic and atraumatic, Normal Conjunctiva, EOMI, Sclera is non- icteric Lungs:.No signs of respiratory distress, CTA, no wheezing or crackles Heart:.Normal S1, S2, no murmur Abdominal:.ND, Soft, NT MSK:.b/l trace LE pitting edema Neuro: CN II-XII intact, PERRLA, overall normal strength Skin:R posterior heel: 1x1 cm stage 2 ulcers, no skin erythema or drainage or bleeding Psych:AAOx2 (person and place only), normal affect Principal Diagnosis Metabolic Encephalopathy Discharge Exam Constitutional WD/WN, vitals as above Respiratory normal respiratory effort, lungs clear to auscultation Cardiovascular Rate/Rhythm: regular rate and regular rhythm Vessels: normal peripheral pulses Extremities: no edema Gastrointestinal (Abdomen) Percussion/Palpation: abdomen soft; abdomen nontender Skin no rashes, warm and dry Neurologic no focal motor deficits Psychiatric A+Ox3, euthymic affect Discharge Data Allergies Allergy/AdvReac Type Severity Reaction Status Date / Time No Known Allergies Allergy Verified 08/24/22 08:46 Consultations None Procedures Performed None Ordered Studies Laboratory Results WBC 8.65 K/ul (4.8-10.8) 08/31/22 08:27 RBC 2.99 M/uL (4.70-6.10) L 08/31/22 08:27 Hgb 9.7 g/dl (14.0-18.0) L 08/31/22 08:27 Hct 28.8 % (42.0-52.0) L 08/31/22 08:27 MCV 96.3 fL (80.0-100.0) 08/31/22 08:27 MCH 32.4 pg (25.0-34.0) 08/31/22 08:27 MCHC 33.7 g/dL (32.0-36.0) 08/31/22 08: RDW Std Deviation 43.8 fL (36.4-46.3) 08/31/22 08: RDW Coeff of Jaime 12.4 % (11.5-14.5) 08/31/22 08:27 Plt Count 158 K/uL (130-400) 08/31/22 08:27 MPV 9.8 fL (9.4-12.4) 08/31/22 08:27 Immature Gran % (Auto) 0.4 % 08/30/22 06:58 Neut % (Auto) 86.9 % 08/30/22 06:58 Lymph % (Auto) 4.6 % 08/30/22 06:58 [place] % (Auto) 6.7 % 08/30/22 06:58 Eos % (Auto) 1.1 % 08/30/22 06:58 Baso % (Auto) 0.3 % 08/30/22 06:58 Neut # (Auto) 10.27 K/uL (1.40-6.50) H 08/30/22 06:58 Lymph # (Auto) 0.54 K/uL (1.2-3.4) L 08/30/22 06:58 [place] # (Auto) 0.79 K/uL (0.11-0.59) H 08/30/22 06:58 Eos # (Auto) 0.13 K/uL (0-0.50) 08/30/22 06:58 Baso # (Auto) 0.04 K/uL (0-0.2) 08/30/22 06:58 Immature Gran # (Auto) 0.05 K/uL (0.01-0.20) 08/30/22 06:58 PT 21.2 Seconds (9.0-12.0) H 09/02/22 07:01 INR 2.1 (0.9-1.1) H 09/02/22 07:01 Sodium 139 mmol/L (136-145) 09/02/22 07:01 Potassium 4.6 mmol/L (3.5-5.1) 09/02/22 07:01 Chloride 112 mmol/L (98-107) H 09/02/22 07:01 Carbon Dioxide 20 mmol/L (21-32) L 09/02/22 07:01 Anion Gap 7 (3-11) 09/02/22 07:01 BUN 45 mg/dl (6-23) H 09/02/22 07:01 Creatinine 2.74 mg/dl (0.6-1.4) H 09/02/22 07:01 Est Cr Clr Drug Dosing 20.0 ml/min 09/02/22 07:01 Est GFR ( Amer) 23.2 ml/min 09/02/22 07:01 Est GFR (Non-Af Amer) 20.1 ml/min 09/02/22 07:01 BUN/Creatinine Ratio 16.4 (10-20) 09/02/22 07:01 Glucose 111 mg/dl (70-99(Fasting)) H 09/02/22 07:01 POC Glucose 109 mg/dl (70-99) H 09/02/22 08:01 Estimat Average Glucose 137 mg/dl 08/30/22 06:58 Hemoglobin A1c 6.4 % (4.5-5.6) H 08/30/22 06:58 Lactate 1.4 mmol/L (0.4-2.0) 08/29/22 10:05 Calcium 8.5 mg/dl (8.5-10.1) 09/02/22 07:01 Magnesium 1.6 mg/dl (1.7-2.4) L 08/30/22 06:58 Total Bilirubin 0.3 mg/dl (0.2-1.0) 08/30/22 06:58 Direct Bilirubin 0.1 mg/dl (0-0.2) 08/29/22 07:08 AST 22 U/L (13-39) 08/30/22 06:58 ALT 12 U/L (7-52) 08/30/22 06:58 Alkaline Phosphatase 49 U/L (34-104) 08/30/22 06:58 Troponin I High Sens 17.2 pg/ml (0-20) 08/29/22 07:08 Total Protein 5.5 gm/dl (6.0-8.3) L 08/30/22 06:58 Albumin 3.0 gm/dl (3.4-5.0) L 08/30/22 06:58 Globulin 2.5 gm/dl (2.5-4.0) 08/30/22 06:58 Albumin/Globulin Ratio 1.2 (0.9-2) 08/30/22 06:58 Procalcitonin 7.65 ng/ml (0-0.5) H 08/29/22 07:08 Urine Color Yellow 08/29/22 08:14 Urine Appearance Cloudy (Clear) A 08/29/22 08:14 Urine pH 8.0 (4.5-7.5) H 08/29/22 08:14 Ur Specific [place] 1.013 (1.000-1.030) 08/29/22 08:14 Urine Protein 2+ (Negative) H 08/29/22 08:14 Urine Glucose (UA) Negative (Negative) 08/29/22 08:14 Urine Ketones Negative (Negative) 08/29/22 08:14 Urine Blood Trace (Negative) H 08/29/22 08:14 Urine Nitrite Positive (Negative) A 08/29/22 08:14 Urine Bilirubin Negative (Negative) 08/29/22 08:14 Urine Urobilinogen Negative (Negative) 08/29/22 08:14 Ur Leukocyte Esterase Negative (Negative) 08/29/22 08:14 Urine WBC (Auto) 1-5 /hpf (0-5) 08/29/22 08:14 Urine RBC (Auto) 0-4 /hpf (0-4) 08/29/22 08:14 U Hyaline Cast (Auto) 1-5 /lpf (0-5) 08/29/22 08:14 U Epithel Cells (Auto) 10-20 /lpf (0-5) H 08/29/22 08:14 Urine Bacteria (Auto) 1+ (Negative) H 08/29/22 08:14 Nasal Screen MRSA (PCR) Negative (Negative) 08/29/22 10:20 SARS-CoV-2 (PCR) NEGATIVE (Negative) 08/29/22 08:15 Influenza Type A (PCR) Negative (Neg) 08/29/22 08:15 Influenza Type B (PCR) Negative (Neg) 08/29/22 08:15 RSV (RT-PCR) Negative (Neg) 08/29/22 08:15 SARS-CoV-2, RNA, NAAT NEGATIVE (NEGATIVE) 09/02/22 09:49 Impressions Chest X-Ray 08/29/22 06:58 XR chest 1V portable CLINICAL HISTORY: Sepsis. COMPARISON STUDY: Chest radiograph January 30, 2022. FINDINGS: Left subclavian pacer and median sternotomy wires are noted. Cardiomegaly is unchanged. No evidence for pulmonary edema. Left basilar and right upper lobe interstitial thickening is chronic. No consolidation to suggest pneumonia. No pneumothorax or pleural effusion. IMPRESSION: No acute cardiopulmonary findings. No change in appearance of the chest. ACT 112: Negative or not required by law. Electronically signed by: Marc Leroy M.D. 08/29/2022 7:52 AM Hip X-Ray 08/29/22 07:50 XR hip RT min 2V CLINICAL HISTORY: Right hip pain. COMPARISON: CT of the abdomen and pelvis January 30, 2022. Pelvis radiograph June 16, 2019. FINDINGS: No fracture or osseous lesion is identified within the right hip. Moderate right hip osteoarthritis is noted with joint space narrowing and osteophytosis. This appears unchanged. Pelvic calcifications favor phlebolith. Vascular calcification is incidentally noted. IMPRESSION: 1. No acute fracture. 2. Moderate right hip osteoarthritis. ACT 112: Negative or not required by law. Electronically signed by: Marc Leroy M.D. 08/29/2022 8:15 AM Hospital Course (1) Metabolic encephalopathy: (2) Ambulatory dysfunction: (3) Heel ulcer: (4) CKD (chronic kidney disease), stage IV: (5) PAF (paroxysmal atrial fibrillation): (6) HTN (hypertension): (7) T2DM (type 2 diabetes mellitus): Plan Metabolic encephalopathy Ambulatory dysfunction Seems to be medication induced from oxycodone. UTI ruled out. Right heel ulcer does not appear to be infected, no signs of osteomyelitis on CT scan. Blood cultures no growth. Patient received IV ceftriaxone and vancomycin in the ED. Given elevated procalcitonin, patient was empirically started on IV ceftriaxone x 3 days Accepted to [facility] for rehab R heel ulcer with DMII and neuropathy No sign of infection Patient prescribed gabapentin 300 mg TID during recent ED visit however did not take any doses at home. Patient started on gabapentin 100 mg TID during admission and seems to have helped RLE pain. This was reduced to 100mg BID due to mild lethargy/intermittent confusion. Patient tolerating well, pain controlled. PAD Arterial duplex shows hemodynamically significant stenosis within the right popliteal artery Follow-up with vascular as an outpatient HTN BP elevated 2/ AM -- likely due to missed dose amlodipine on 09/01 BP improved after amlodipine administration. If BP persistently elevated, consider increasing to 10mg daily. Also on metoprolol Anemia Hgb stable at 9.7 on 08/31/2022 continue monitor CBC CKD IV Creatinine 2.7 on 09/02/2022 with baseline 2.9 to 3.1 Avoid nephrotoxic agents Continue monitor BMP Afib rate control with metoprolol On Coumadin, INR 2.1 on 09/02/22 CAD s/p CABG/HTN Appears stable, no reports of chest pain Continue Metoprolol,aspirin, and atorvastatin DMII Hgb A1c 6.4 Hold oral agents utilize NovoLog per protocol while hospitalized -- resume PO meds on d/c Total Time Total Time Spent Total Time Spent (In Minutes): 40 Discharge Plan Discharge Items Patient Disposition: Transfer Alf Fac Reason For Visit: Altered Mental Status Discharge Diagnosis: Metabolic encephalopathy -- likely medication induced Activity: Resume your previous activity Non-emergency contact: Primary Care Provider Call non-emergency contact if: you have any medication questions, your symptoms worsen, your pain is not controlled and you have a fever Follow-up/Referrals: Cm Musa MD [Physician] - Eulogio Lugo DO [Primary Care Provider] - Diet: Heart Healthy Addtl Attending Provider Instructions: Patient presented for evaluation of altered mental status. Had recent ED evaluation for RLE pain and was prescribed oxycodone. There was suspicion for infectious source on admission given reported fever at home and elevated procalcitonin however blood and urine cultures, CXR, right foot CT were unremarkable for infectious findings. Patient was treated with 3 days of IV ceftriaxone. Given negative infectious work-up, patient's altered mental status was felt to be due to oxycodone use. RLE pain was felt to be due to diabetic neuropathy and patient was started on gabapentin 100 mg twice daily with improvement. Patient tolerated this medication without problem. During previous ED visit, patient had RLE arterial ultrasound that showed significant stenosis within the right popliteal artery. Patient will need to follow-up with vascular surgery. BP elevated on day of discharge, likely secondary to missing amlodipine dose on 09/01. Continue to monitor BP at SNF and consider increasing amlodipine to 10 mg daily if BP consistently elevated. Pending Studies at Discharge: No Stand-Alone Forms: My [facility] Skilled Items Patient informed of condition?: Yes DNR: No Discharge Level of Care: Skilled Communicable Disease: No Discharge Prognosis: Stable Lines: None Urinary Catheter: No Medications and DC Order Prescriptions: New warfarin 3 mg Tablet 3 mg PO MoWeFr@1600 Qty: 1 0RF gabapentin 100 mg Capsule 100 mg PO BID Qty: 1 0RF warfarin 1 mg Tablet 0.5 mg PO SuTuThSa@1600 Qty: 1 0RF warfarin [Jantoven] 1 mg Tablet 1 mg PO SuTuThSa@1600 Qty: 1 0RF Continued atorvastatin 80 mg tablet 80 mg PO HS metoprolol succinate 50 mg tablet extended release 24 hr 50 mg PO BID amlodipine 5 mg tablet 5 mg PO QAM aspirin 81 mg Tablet,Delayed Release (Dr/Ec) 81 mg PO QAM glipizide 2.5 mg tablet extended release 24 hr 2.5 mg PO QAM nitroglycerin [Nitrostat] 0.4 mg Tablet, Sublingual 0.4 mg sublingual UD PRN (Reason: Chest Pain) dutasteride 0.5 mg capsule 0.5 mg PO HS lidocaine 5 % adhesive patch,medicated 1 patch TOP DAILY PRN (Reason: pain) Qty: 15 0RF Rx Instructions: leave on most painful area for 12 hrs ferrous sulfate 325 mg (65 mg iron) Tablet,Delayed Release (Dr/Ec) 325 mg PO QAM Qty: 30 0RF ondansetron HCl 4 mg tablet 4 mg PO Q12H PRN (Reason: Nausea) docusate sodium 100 mg Capsule 100 mg PO BID magnesium 250 mg Tablet 250 mg PO QAM polyethylene glycol 3350 [Miralax] 17 gram/dose Powder 17 g PO QAM pantoprazole 40 mg tablet,delayed release (DR/EC) 40 mg PO QAM Discontinued diphenhydramine-acetaminophen [Tylenol PM Extra Strength] 25-500 mg Tablet 1 tab PO HS PRN (Reason: Sleep) oxycodone 5 mg tablet 5 mg PO Q8H PRN (Reason: pain) Qty: 9 0RF gabapentin 300 mg capsule 300 mg PO TID Qty: 30 0RF warfarin 3 mg tablet 1.5 - 3 mg PO UD Rx Instructions: 3mg mon,wed,fri; 1.5mg sun,tu,thurs,sat.-as directed by coumadin clinic Discharge Orders: Discharge Order (Routine); Ordered 09/02/22 Ordered By: Yolanda Solorio/Other Patient Handouts: Managing Type 2 Diabetes Admission Data Admit Date/Time: 08/29/22 10:10 Attending Provider: Michele Blanton Admit Provider: Mini Soliz Primary Care Provider: Eulogio Lugo Other Providers: Claire Braswell ; Mnii Soliz ; Qamar Todd at [facility] Other Interventions: Discharge Summary Assessment (RN) Last Done: 09/02/22 11:38 Supervising Physician Co-Signing Physician Notes Patient seen and examined by me, care coordinated with RADHA Naylor, please refer to her note above for further detail. Patient is currently sitting up in chair, in no acute distress, he is awake alert oriented and answering questions appropriately. Lungs are clear to auscultation, heart sounds regular, abdomen soft nontender nondistended. No lower extremity edema. Patient moves extremities. Patient was admitted with some confusion, likely secondary to higher dose of gabapentin and oxycodone. Currently tolerating pain medications well. He will need to follow-up for his heel ulcer with wound care clinic, and vascular surgery. Also recommend to follow-up on patient's hypertension. MD Harvinder
== END 2022-09-02 12:17 | DRG 92 ==
LOC: ED 06:11 → SUATTDRO 10:10 → EDINP 10:10 → 3E 13:58